=== PATIENT | female | born 1985 | race Caucasian/White ===

== ENCOUNTER 2017-07-06 21:36 | Emergency (ER) | payer OTHER, SELFPAY ==
[2017-07-06 21:49] VITALS: BP 113/68; PULSE 98; RESP 16; TEMP 37; O2SAT 98; BMI 39.8
[2017-07-06 22:39] LABS: Strep Scrn Group A (Rapid) Positive (Negative)
--- NOTE | 2017-07-06 23:46 | HMH.EDGENADL ---
ED Disposition Clinical Impression: Strep pharyngitis Disposition: Home, Self-Care Condition on Discharge: Good Instructions: DI for Strep Throat Additional Instructions: Additional instructions for SORE THROAT: See your physician as soon as possible for further evaluation. Return immediately if you have an uncontrollable fever greater than 102 degrees, difficulty breathing or shortness of breath, persistent vomiting, or inability to swallow. Prescriptions: Azithromycin [Zithromax 250mg tab] 250 mg PO DAILY #4 tab - Critical Care Critical Care Time: No Attestation: On 07/06/17, the high probability of a clinically significant, sudden or life threatening deterioration of the following system(s) required my full and direct attention, intervention and personal management. The time I documented below is in addition to time spent performing reported procedures but includes the following listed in this critical care notation. Medical Decision Making Vital Signs: 07/06/17 21:49 07/07/17 00:13 Temperature 98.6 F Temperature Source Oral Pulse Rate 87 Pulse Rate [Right Brachial] 98 H Respiratory Rate 16 18 Blood Pressure 108/57 Blood Pressure [Right Arm] 113/68 Blood Pressure Mean [Right Arm] 83 Blood Pressure Source Automatic Cuff Blood Pressure Source [Right Arm] Automatic Cuff Blood Pressure Position Sitting Blood Pressure Position [Right Arm] Sitting 02 Sat by Pulse Oximetry 98 Oxygen Delivery Method Room Air Room Air - Lab Data Lab Results 07/06/17 22:15: Group A Strep Rapid Positive A Orders (Tests/Meds): ED MEDICATIONS Discontinued Medications Generic Name Dose Route Start Last Admin Trade Name Fahadq PRN Reason Stop Dose Admin Azithromycin 500 mg 07/06/17 23:46 07/07/17 00:11 Zithromax 250mg Tablet PO 07/06/17 23:47 500 mg ONCE ONE Administration - Marck Inquiry Pt receiving controlled substance: No General Adult HPI - General Chief complaint: Nausea/Vomiting/Diarrhea Stated complaint: Sore Throat, Stomach Cramps Mode of Arrival: Ambulatory Limitations: No Limitations Description of Symptoms (Recalled from ER Triage Doc. by RN): sore throat, diarrhea, abdominal cramps - History of Present Illness HPI narrative: The patient has been sick for 3 days with sore throat, abdominal cramps, diarrhea. No vomiting. Minimal cough. 2 of the patient's children have strep throat. - Related Data Home Medications Medication Instructions Recorded Confirmed Norgestimate-Ethinyl Estradiol 1 each PO DAILY 07/06/17 07/06/17 [Sprintec 28 Day Tablet] Previous Rx's Medication Instructions Recorded Azithromycin [Zithromax 250mg 250 mg PO DAILY #4 tab 07/06/17 tab] Allergies Allergy/AdvReac Type Severity Reaction Status Date / Time codeine [CODEINE] Allergy Mild ITCHY RASH Verified 07/06/17 22:05 honey [HONEY] Allergy Mild NA-NAUSEA/V Verified 07/06/17 22:05 OMITING Penicillins [PENICILLINS] Allergy Mild Verified 07/06/17 22:05 HONEY BEE Allergy Mild NA-NAUSEA/V Uncoded 06/19/17 14:47 OMITING [facility] History I have reviewed the patient's past medical history: Yes 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: Denies:: Cancer, Diabetes Mellitus Type 1, Diabetes Mellitus Type 2, MRSA Amputation: No - *Social History Educational Level: Attended High School Smoking Status: Current every day smoker Tobacco Type: cigarettes # Packs/Day (cigarettes): 1 Alcohol Intake: never - Psychiatric History Expresses thoughts of harming self/others: None Suicide Plan Description: No Plan ROS Obtained: Yes Appropriate systems reviewed & no add complaints except as noted - Constitutional Denies fever(s) - ENT Reports sore throat - Respiratory Reports cough (slight) - Gastrointestinal Comments: stomach cramps, diarrhea Physical Exam - General General appearance: alert, in no apparent distress - Head Head exam: atraumatic, normocephal
--- NOTE | 2017-07-06 23:49 | ED_ITS ---
ED Disposition Clinical Impression: Strep pharyngitis Disposition: Home, Self-Care Condition on Discharge: Good Instructions: DI for Strep Throat Additional Instructions: Additional instructions for SORE THROAT: See your physician as soon as possible for further evaluation. Return immediately if you have an uncontrollable fever greater than 102 degrees, difficulty breathing or shortness of breath, persistent vomiting, or inability to swallow. Prescriptions: Azithromycin [Zithromax 250mg tab] 250 mg PO DAILY #4 tab - Critical Care Critical Care Time: No Attestation: On 07/06/17, the high probability of a clinically significant, sudden or life threatening deterioration of the following system(s) required my full and direct attention, intervention and personal management. The time I documented below is in addition to time spent performing reported procedures but includes the following listed in this critical care notation. Medical Decision Making Vital Signs: 07/06/17 21:49 07/07/17 00:13 Temperature 98.6 F Temperature Source Oral Pulse Rate 87 Pulse Rate [Right Brachial] 98 H Respiratory Rate 16 18 Blood Pressure 108/57 Blood Pressure [Right Arm] 113/68 Blood Pressure Mean [Right Arm] 83 Blood Pressure Source Automatic Cuff Blood Pressure Source [Right Arm] Automatic Cuff Blood Pressure Position Sitting Blood Pressure Position [Right Arm] Sitting 02 Sat by Pulse Oximetry 98 Oxygen Delivery Method Room Air Room Air - Lab Data Lab Results 07/06/17 22:15: Group A Strep Rapid Positive A Orders (Tests/Meds): ED MEDICATIONS Discontinued Medications Generic Name Dose Route Start Last Admin Trade Name Fahadq PRN Reason Stop Dose Admin Azithromycin 500 mg 07/06/17 23:46 07/07/17 00:11 Zithromax 250mg Tablet PO 07/06/17 23:47 500 mg ONCE ONE Administration - Marck Inquiry Pt receiving controlled substance: No General Adult HPI - General Chief complaint: Nausea/Vomiting/Diarrhea Stated complaint: Sore Throat, Stomach Cramps Mode of Arrival: Ambulatory Limitations: No Limitations Description of Symptoms (Recalled from ER Triage Doc. by RN): sore throat, diarrhea, abdominal cramps - History of Present Illness HPI narrative: The patient has been sick for 3 days with sore throat, abdominal cramps, diarrhea. No vomiting. Minimal cough. 2 of the patient's children have strep throat. - Related Data Home Medications Medication Instructions Recorded Confirmed Norgestimate-Ethinyl Estradiol 1 each PO DAILY 07/06/17 07/06/17 [Sprintec 28 Day Tablet] Previous Rx's Medication Instructions Recorded Azithromycin [Zithromax 250mg 250 mg PO DAILY #4 tab 07/06/17 tab] Allergies Allergy/AdvReac Type Severity Reaction Status Date / Time codeine [CODEINE] Allergy Mild ITCHY RASH Verified 07/06/17 22:05 honey [HONEY] Allergy Mild NA-NAUSEA/V Verified 07/06/17 22:05 OMITING Penicillins [PENICILLINS] Allergy Mild Verified 07/06/17 22:05 HONEY BEE Allergy Mild NA-NAUSEA/V Uncoded 06/19/17 14:47 OMITING [facility] History I have reviewed the patient's past medical history: Yes M
[2017-07-07 00:13] VITALS: BP 108/57; PULSE 87; RESP 18; O2SAT 98
== END 2017-07-07 00:15 | disposition home or self-care (01) ==
PROVIDERS: Emergency Provider Emergency Medicine; Family Provider Internal Medicine
DX: J02.0 Streptococcal pharyngitis (principal); F17.210 Nicotine dependence, cigarettes, uncomplicated; Z79.3 Long term (current) use of hormonal contraceptives
CPT/HCPCS: 87430; 99282

== ENCOUNTER 2017-09-14 14:14 | Emergency (ER) | payer OTHER, SELFPAY ==
[2017-09-14 14:56] VITALS: BP 117/73; PULSE 75; RESP 20; TEMP 37; O2SAT 95; BMI 39.8
--- NOTE | 2017-09-14 16:17 | HMH.EDUTC ---
[facility] [place] Disposition Clinical Impression: Viral upper respiratory illness Disposition: Home, Self-Care Condition on Discharge: Good Instructions: DI for Viral Upper Respiratory Infection -- Adult Additional Instructions: * No sign of bacterial infection. Likely viral. Virus can take 7-14 days to run their course * Nasal Saline to remove nasal drainage and help with nasal congestion. Hard to eat, drink, sleep with nasal congestion so important to keep nose cleaned out * Monitor Temp. Tylenol every 4 hours as needed no more then 5 times a day or 4000mg in 24 hours and/or ibuprofen every 6 hours as needed no more then 3200mg in 24 hours (as long as your primary care doctor has told you that it is ok to take both) for fever/aches/pain. ER if fever no less than 101 despite tylenol and ibuprofen * Encourage fluids, water, gatorade, powerade, pedialyte if /toddler/child * warm salt water gargles * warm fluids * sore throat lozenges * sleep elevated * humidifier/vaporizer * If you want to, you can try flonase 2 sprays each nostril daily but may take 2-3 days to notice improvement with it. * Bromfed may cause drowsiness. Know how it effects you (or your child) before driving, caring for small children, or sending your child to school. No other antihistamines/allergy medications while taking bromfed. Follow up with primary care IMMEDIATELY for new or worsening symptoms OR no noticeable improvement over the next 48-72 hours. 911 for difficulty breathing or swallowing. Prescriptions: Brompheniramine/Pseudoephed/Dm [Bromfed DM Cough Syrup 5mL] 10 ml PO QID PRN #240 ml PRN Reason: Cough Time of Disposition: 16:19 Medical Decision Making - Marck Inquiry Pt receiving controlled substance: No Vital Signs: 09/14/17 14:56 09/14/17 16:28 Temperature 98.6 F 98.5 F Temperature Source Temporal Artery Scan Pulse Rate 73 Pulse Rate [Left Radial] 75 Respiratory Rate 20 18 Blood Pressure 115/78 Blood Pressure [Right Arm] 117/73 Blood Pressure Mean [Right Arm] 87 02 Sat by Pulse Oximetry 95 Oxygen Delivery Method Room Air Room Air [facility] [place] HPI - General Stated complaint: cough congestion Time Seen by Provider: 09/14/17 15:30 Mode of Arrival: Family Vehicle Source of Information: Patient, Parent(s) Limitations: No Limitations Description of Symptoms (Recalled from Triage Doc. by RN): PT C/O COUGH, CONGESTION, SNEEZING, RUNNY NOSE. HEENT Symptoms (Recalled from RN notes): Yes (SNEEZING, RUNNY NOSE) Resp Symptoms (Recalled from RN notes): Yes (COUGH,CONGESTION) Skin Symptoms (Recalled from RN notes): No MS Symptoms (Recalled from RN notes): No Functional Status (Recalled from RN notes): NA - History of Present Illness Provider Complaint: c/o nonprod cough, nasal congestion, sneezing, rhinorrhea x 2-3 days. Two children with same symptoms. Fatigue as well but contributes that to my nerves , high stress an staying awake w/ who is in ICU at on ventilator due to DKA. That is why I am here. To be checked before I return. No fever, aches, chills, sore throat. Hasn't taken or tried anything for symptoms. - Related Data Home Medications Medication Instructions Recorded Confirmed Norgestimate-Ethinyl Estradiol 1 each PO DAILY 07/06/17 09/14/17 [Sprintec 28 Day Tablet] Previous Rx's Medication Instructions Recorded Azithromycin [Zithromax 250mg 250 mg PO DAILY #4 tab 07/06/17 tab] Brompheniramine/Pseudoephed/Dm 10 ml PO QID PRN #240 ml 09/14/17 [Bromfed DM Cough Syrup 5mL] Allergies Allergy/AdvReac Type Severity Reaction Status Date / Time codeine [CODEINE] Allergy Mild ITCHY RASH Verified 09/14/17 15:05 honey [HONEY] Allergy Mild NA-NAUSEA/V Verified 09/14/17 15:05 OMITING Penicillins [PENICILLINS] Allergy Mild Verified 09/14/17 15:05 HONEY BEE Allergy Mild NA-NAUSEA/V Uncoded 06/19/17 14:47 OMITING - Worker's Comp Is this a Worker's Comp case?: No H History I h
--- NOTE | 2017-09-14 16:20 | ED_ITS ---
[facility] Disposition Clinical Impression: Viral upper respiratory illness Disposition: Home, Self-Care Condition on Discharge: Good Instructions: DI for Viral Upper Respiratory Infection -- Adult Additional Instructions: * No sign of bacterial infection. Likely viral. Virus can take 7-14 days to run their course * Nasal Saline to remove nasal drainage and help with nasal congestion. Hard to eat, drink, sleep with nasal congestion so important to keep nose cleaned out * Monitor Temp. Tylenol every 4 hours as needed no more then 5 times a day or 4000mg in 24 hours and/or ibuprofen every 6 hours as needed no more then 3200mg in 24 hours (as long as your primary care doctor has told you that it is ok to take both) for fever/aches/pain. ER if fever no less than 101 despite tylenol and ibuprofen * Encourage fluids, water, gatorade, powerade, pedialyte if infant/toddler/ child * warm salt water gargles * warm fluids * sore throat lozenges * sleep elevated * humidifier/vaporizer * If you want to, you can try flonase 2 sprays each nostril daily but may take 2 -3 days to notice improvement with it. * Bromfed may cause drowsiness. Know how it effects you (or your child) before driving, caring for small children, or sending your child to school. No other antihistamines/allergy medications while taking bromfed. Follow up with primary care IMMEDIATELY for new or worsening symptoms OR no noticeable improvement over the next 48-72 hours. 911 for difficulty breathing or swallowing. Prescriptions: Brompheniramine/Pseudoephed/Dm [Bromfed DM Cough Syrup 5mL] 10 ml PO QID PRN # 240 ml PRN Reason: Cough Time of Disposition: 16:19 Medical Decision Making - Marck Inquiry Pt receiving controlled substance: No Vital Signs: 09/14/17 14:56 09/14/17 16:28 Temperature 98.6 F 98.5 F Temperature Source Temporal Artery Scan Pulse Rate 73 Pulse Rate [Left Radial] 75 Respiratory Rate 20 18 Blood Pressure 115/78 Blood Pressure [Right Arm] 117/73 Blood Pressure Mean [Right Arm] 87 02 Sat by Pulse Oximetry 95 Oxygen Delivery Method Room Air Room Air [facility] HPI - General Stated complaint: cough congestion Time Seen by Provider: 09/14/17 15:30 Mode of Arrival: Family Vehicle Source of Information: Patient, Parent(s) Limitations: No Limitations Description of Symptoms (Recalled from Triage Doc. by RN): PT C/O COUGH, CONGESTION, SNEEZING, RUNNY NOSE. HEENT Symptoms (Recalled from RN notes): Yes (SNEEZING, RUNNY NOSE) Resp Symptoms (Recalled from RN notes): Yes (COUGH,CONGESTION) Skin Symptoms (Recalled from RN notes): No MS Symptoms (Recalled from RN notes): No Functional Status (Recalled from RN notes): NA - History of Present Illness Provider Complaint: c/o nonprod cough, nasal congestion, sneezing, rhinorrhea x 2-3 days. Two children with same symptoms. Fatigue as well but contributes that to my nerves , high stress an staying awake w/ who is in ICU at on ventilator due to DKA. That is why I am here. To be checked before I return. No fever, aches, chills, sore throat. Hasn't taken or tried anything for symptoms. - Related Data Home Medications Medication Instructions Recorded Confirmed Norgestimate-Ethinyl Estradiol 1 each PO DAILY 07/06/17 09/14/17 [Sprintec 28 Day Tablet] Previous Rx's Medication Instructions Recorded Azithromycin [Zithromax 250mg 250 mg PO DAILY #4 tab 07/06/17 tab]
[2017-09-14 16:28] VITALS: BP 115/78; PULSE 73; RESP 18; TEMP 36.9; O2SAT 96
== END 2017-09-14 16:29 | disposition home or self-care (01) ==
PROVIDERS: Emergency Provider Nurse Practitioner Family; Family Provider Internal Medicine
DX: J06.9 Acute upper respiratory infection, unspecified (principal); F17.210 Nicotine dependence, cigarettes, uncomplicated; Z88.0 Allergy status to penicillin; Z88.6 Allergy status to analgesic agent
CPT/HCPCS: 99201

== ENCOUNTER 2018-11-28 12:52 | Emergency (ER) | payer MEDICAID, SELFPAY ==
[2018-11-28 13:10] VITALS: BP 114/71; PULSE 98; RESP 18; TEMP 36.6; O2SAT 99; BMI 41.0
--- NOTE | 2018-11-28 13:33 | HMH.EDUTC ---
[facility] [place] Disposition Clinical Impression: Strep pharyngitis Disposition: Home, Self-Care Condition on Discharge: Good Instructions: Strep Throat, DI for Strep Throat Additional Instructions: Drink plenty of fluids. Take tylenol or ibuprofen for pain or fever Take all the antibiotics as prescribed. Throw your tooth brush away and get a new one in a couple of days. Follow up with your regular doctor. GO TO THE ER FOR ANY WORSENING OR LIFE THREATENING SYMPTOMS Prescriptions: Ondansetron [Zofran 4mg ODT] 4 mg PO Q8HP PRN #30 tab.rapdis PRN Reason: Nausea predniSONE [Deltasone 10mg tablet] 10 mg PO BID 3 Days #6 tab Cefdinir [Omnicef 300mg Capsule] 300 mg PO BID #20 cap Referrals: Jackie Michaud MD [Primary Care Provider] - Time of Disposition: 13:35 Medical Decision Making - Medical Records Medical records reviewed: Yes: I reviewed the patient's medical records. - Marck Inquiry Pt receiving controlled substance: No Marck was queried for this patient: No Vital Signs: 11/28/18 13:10 11/28/18 13:38 Temperature 97.8 F 97.8 F Temperature Source Oral Pulse Rate 98 H Pulse Rate [Right Radial] 98 H Respiratory Rate 18 18 Blood Pressure 114/71 Blood Pressure [Right Arm] 114/71 Blood Pressure Mean [Right Arm] 85 Blood Pressure Source [Right Arm] Automatic Cuff Blood Pressure Position [Right Arm] Sitting 02 Sat by Pulse Oximetry 99 Oxygen Delivery Method Room Air [facility] [place] HPI - General Stated complaint: fever, sore throat and vomiting Time Seen by Provider: 11/28/18 13:20 Mode of Arrival: Ambulatory Source of Information: Parent(s) Limitations: No Limitations Description of Symptoms (Recalled from Triage Doc. by RN): C/O FEVER, N/V, SORE THROAT HEENT Symptoms (Recalled from RN notes): Yes (SORE THROAT) Resp Symptoms (Recalled from RN notes): No Skin Symptoms (Recalled from RN notes): No MS Symptoms (Recalled from RN notes): No Functional Status (Recalled from RN notes): N/A - History of Present Illness Provider Complaint: She c/o sore throat, chilling, low grade fever for the past 2 days. - Related Data Previous Rx's Medication Instructions Recorded clindamycin HCl 300 mg capsule 300 mg PO Q8H 10 Days #30 cap 10/15/18 Cefdinir [Omnicef 300mg Capsule] 300 mg PO BID #20 cap 11/28/18 Ondansetron [Zofran 4mg ODT] 4 mg PO Q8HP PRN #30 tab.rapdis 11/28/18 predniSONE [Deltasone 10mg tablet] 10 mg PO BID 3 Days #6 tab 11/28/18 Allergies Allergy/AdvReac Type Severity Reaction Status Date / Time codeine [CODEINE] Allergy Mild ITCHY RASH Verified 10/15/18 16:51 honey [HONEY] Allergy Mild NA-NAUSEA/V Verified 10/15/18 16:51 OMITING Penicillins [PENICILLINS] Allergy Mild Verified 10/15/18 16:51 HONEY BEE Allergy Mild NA-NAUSEA/V Uncoded 10/15/18 16:51 OMITING - Worker's Comp Is this a Worker's Comp case?: No [facility] History - Hepatitis A Screen Drug use history?: No High risk sexual behaviors?: No History of sexually transmitted infection?: No Currently employed?: No Childcare worker?: No Do you have indoor plumbing?: Yes Do you have electricity?: Yes Attestation statement:: This patient has been screened for Hepatitis A risk factors. I have reviewed the patient's past medical history: Yes 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: Denies:: Cancer, Diabetes Mellitus Type 1, Diabetes Mellitus Type 2, Hypertension, MRSA Other Surgeries: Yes: No Previous Surgery Amputation: No Fractures: No - Social History Smoking Status: Never smoker Tobacco Type: cigarettes # Packs/Day (cigarettes): 1 Alcohol Intake: never Substance Use Type: denies use Occupational Status: unemployed Housing: house Household Members: children, significant other, family - Psychiatric History Expresses thoughts of harming self/others: None Suicide Plan Description: No Plan Family Hx:: Anemia, Asthma, Hypertension, Hyperlipidemia ROS Obtained: Yes All systems reviewed & no additional compla
[2018-11-28 13:38] VITALS: BP 114/71; PULSE 98; RESP 18; TEMP 36.6; O2SAT 99
== END 2018-11-28 13:39 | disposition home or self-care (01) ==
PROVIDERS: Emergency Provider Nurse Practitioner Family; PCP Family Medicine
DX: J02.0 Streptococcal pharyngitis (principal); Z88.0 Allergy status to penicillin; Z88.5 Allergy status to narcotic agent
CPT/HCPCS: 99201

== ENCOUNTER 2020-07-13 18:24 | Emergency (ER) | payer OTHER, SELFPAY ==
[2020-07-13 18:24] VITALS: BP 144/98; PULSE 95; RESP 14; TEMP 36.4; O2SAT 95; BMI 39.0
--- NOTE | 2020-07-13 19:48 | HMH.EDUTC ---
[facility] [place] Impression: Exposure to COVID-19 virus Disposition: Home, Self-Care Condition on Discharge: Good Instructions: Preventing the Spread of Coronavirus Discharge Instructions Additional Instructions: Drink plenty of fluids. Take tylenol for pain or fever. Return if you begin to have difficulty breathing. Follow up with your regular doctor. GO TO THE ER FOR ANY WORSENING SYMPTOMS Referrals: Mina Thompson MD [Primary Care Provider] - Time of Disposition: 19:49 Medical Decision Making - Medical Records Medical records reviewed: No: I reviewed the patient's medical records. - Marck Inquiry Pt receiving controlled substance: No Vital Signs: 07/13/20 18:24 07/13/20 20:02 Temperature 97.6 F 97.6 F Temperature Source Oral Oral Pulse Rate 95 H Pulse Rate [Right] 95 H Respiratory Rate 14 14 Blood Pressure 144/98 H Blood Pressure [Right Arm] 144/98 H Blood Pressure Mean [Right Arm] 113 02 Sat by Pulse Oximetry 95 Orders (Tests/Meds): ORDERS Category Date Time Status Covid-19 Nasal PCR Sendout P&C Routine Lab 07/13/20 19:30 [place] [facility] [place] - General Stated complaint: covid test Time Seen by Provider: 07/13/20 19:48 Description of Symptoms (Recalled from Triage Doc. by RN): pt request COVID test pt has no symptoms HEENT Symptoms (Recalled from RN notes): No Resp Symptoms (Recalled from RN notes): No Skin Symptoms (Recalled from RN notes): No MS Symptoms (Recalled from RN notes): No Functional Status (Recalled from RN notes): wnl - History of Present Illness Provider Complaint: She states that she has been exposed to covid. She denies any symptoms. - Related Data Previous Rx's Medication Instructions Recorded Promethazine HCl [Phenergan 25mg 25 mg PO Q6H PRN 5 Days #10 tab 08/22/19 tab] Allergies Allergy/AdvReac Type Severity Reaction Status Date / Time codeine [CODEINE] Allergy Mild ITCHY RASH Verified 03/02/19 12:17 honey [HONEY] Allergy Mild NA-NAUSEA/V Verified 03/02/19 12:17 OMITING Penicillins [PENICILLINS] Allergy Mild Verified 03/02/19 12:17 HONEY BEE Allergy Mild NA-NAUSEA/V Uncoded 03/02/19 12:17 OMITING - Worker's Comp Is this a Worker's Comp case?: No Is this an [facility] Worker's Comp?: No Is this a [place] Worker's Comp?: No [facility] History - Hepatitis A Screen Drug use history?: No High risk sexual behaviors?: No History of sexually transmitted infection?: No Currently employed?: No Childcare worker?: No Do you have indoor plumbing?: Yes Do you have electricity?: Yes Attestation statement:: This patient has been screened for Hepatitis A risk factors. I have reviewed the patient's past medical history: Yes 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: Denies:: Cancer, Diabetes Mellitus Type 1, Diabetes Mellitus Type 2, Hypertension, MRSA Other Surgeries: Yes: No Previous Surgery Amputation: No Fractures: No - Social History Smoking Status: Current every day smoker Tobacco Type: cigarettes # Packs/Day (cigarettes): 1 Alcohol Intake: never Substance Use Type: denies use Occupational Status: other Housing: house Household Members: significant other, family Family Hx:: Anemia, Asthma, Hypertension, Hyperlipidemia ROS Obtained: Yes All systems reviewed & no additional complaints - Constitutional Constitutional: Reports system reviewed and no additional complaints, except as docu - Eyes Eyes: Reports system reviewed and no additional complaints, except as docu - ENT Ears, Nose, Mouth, and Throat: Reports system reviewed and no additional complaints, except as docu - Cardiovascular Cardiovascular: Reports system reviewed and no additional complaints, except as docu - Respiratory Respiratory: Reports system reviewed and no additional complaints, except as docu - Gastrointestinal Gastrointestingal: Reports: system reviewed and no additional complaints, except as docu Physical Exam - General General appearan
[2020-07-13 20:02] VITALS: BP 144/98; PULSE 95; RESP 14; TEMP 36.4; O2SAT 95
[2020-07-15 11:40] LABS: Covid-19 Nasal PCR Sendout P&C NEGATIVE
== END 2020-07-13 20:03 | disposition home or self-care (01) ==
PROVIDERS: Emergency Provider Nurse Practitioner Family; PCP Internal Medicine Adolescent Medicine
DX: Z20.822 Contact with and (suspected) exposure to COVID-19 (principal); F17.210 Nicotine dependence, cigarettes, uncomplicated; Z88.0 Allergy status to penicillin; Z88.5 Allergy status to narcotic agent
CPT/HCPCS: 99202; G0463; U0004

== ENCOUNTER 2020-07-17 15:15 | Emergency (ER) | payer OTHER, SELFPAY ==
[2020-07-17 15:50] VITALS: BP 122/68; PULSE 92; RESP 14; TEMP 36.3; O2SAT 97; BMI 39.0
--- NOTE | 2020-07-17 16:05 | HMH.EDUTC ---
[facility] Disposition Clinical Impression: Viral syndrome, Bronchitis Disposition: Home, Self-Care Condition on Discharge: Good Instructions: DI for COVID-19 (Suspected or Confirmed ), Preventing the Spread of Coronavirus Discharge Instructions Additional Instructions: Drink plenty of fluids. Take tylenol for pain or fever. Return if you begin to have difficulty breathing. Follow up with your regular doctor. GO TO THE ER FOR ANY WORSENING SYMPTOMS Prescriptions: Benzonatate [Tessalon Perle 100mg Cap] 100 mg PO TIDP PRN #30 cap PRN Reason: Cough [facility] Status[id number] Azithromycin [Z-Kodi 250mg Tab*] 250 mg PO UD DOSE PK #6 tab Transmission Status: Received by [id number] Referrals: Mina Thompson MD [Primary Care Provider] - Time of Disposition: 16:07 Medical Decision Making - Medical Records Medical records reviewed: No: I reviewed the patient's medical records. - Marck Inquiry Pt receiving controlled substance: No Vital Signs: 07/17/20 15:50 07/17/20 16:28 Temperature 97.3 F L 97.3 F L Temperature Source Oral Pulse Rate 92 H Pulse Rate [Right Brachial] 92 H Respiratory Rate 14 14 Blood Pressure 122/68 Blood Pressure [Right Arm] 122/68 Blood Pressure Mean [Right Arm] 86 Blood Pressure Source [Right Arm] Automatic Cuff Blood Pressure Position [Right Arm] Sitting 02 Sat by Pulse Oximetry 97 Oxygen Delivery Method Room Air [facility] HPI - General Stated complaint: test for covid Time Seen by Provider: 07/17/20 16:05 Mode of Arrival: Ambulatory Source of Information: Patient Limitations: No Limitations Description of Symptoms (Recalled from Triage Doc. by RN): COVID TEST. C/O HEADACHE, COUGH AND CONGESTION HEENT Symptoms (Recalled from RN notes): Yes Resp Symptoms (Recalled from RN notes): Yes Skin Symptoms (Recalled from RN notes): No MS Symptoms (Recalled from RN notes): No Functional Status (Recalled from RN notes): WNL - History of Present Illness Provider Complaint: She is here to have a covid test repeated so she can go back to work. She has been having sinus congestion and a cough. She had a negative covid test done 3 days ago. - Related Data Previous Rx's Medication Instructions Recorded Promethazine HCl [Phenergan 25mg 25 mg PO Q6H PRN 5 Days #10 tab 08/22/19 tab] Azithromycin [Z-Kodi 250mg Tab*] 250 mg PO UD DOSE PK #6 tab 07/17/20 Benzonatate [Tessalon Perle 100mg 100 mg PO TIDP PRN #30 cap 07/17/20 Cap] Allergies Allergy/AdvReac Type Severity Reaction Status Date / Time codeine [CODEINE] Allergy Mild ITCHY RASH Verified 03/02/19 12:17 honey [HONEY] Allergy Mild NA-NAUSEA/V Verified 03/02/19 12:17 OMITING Penicillins [PENICILLINS] Allergy Mild Verified 03/02/19 12:17 HONEY BEE Allergy Mild NA-NAUSEA/V Uncoded 03/02/19 12:17 OMITING - Worker's Comp Is this a Worker's Comp case?: No [facility] History - Hepatitis A Screen Drug use history?: No High risk sexual behaviors?: No History of sexually transmitted infection?: No Currently employed?: No Childcare worker?: No Do you have indoor plumbing?: Yes Do you have electricity?: Yes Attestation statement:: This patient has been screened for Hepatitis A risk factors. I have reviewed the patient's past medical history: Yes 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: Denies:: Cancer, Diabetes Mellitus Type 1, Diabetes Mellitus Type 2, Hypertension, MRSA Other Surgeries: Yes: No Previous Surgery Amputation: No Fractures: No - Social History Smoking Status: Current every day smoker Tobacco Type: cigarettes # Packs/Day (cigarettes): 1 Alcohol Intake: never Substance Use Type: denies use Occupational Status: other Housing: house Household Members: significant other, family Family Hx:: Anemia, Asthma, Hypertension, Hyperlipidemia ROS Obtained: Yes All systems reviewed & no additional complaints - Constitutional Constitutional: Reports system reviewed and no ad
[2020-07-17 16:28] VITALS: BP 122/68; PULSE 92; RESP 14; TEMP 36.3; O2SAT 97
== END 2020-07-17 16:31 | disposition home or self-care (01) ==
PROVIDERS: Emergency Provider Nurse Practitioner Family; PCP Internal Medicine Adolescent Medicine
DX: Z20.822 Contact with and (suspected) exposure to COVID-19 (principal); J20.9 Acute bronchitis, unspecified; F17.210 Nicotine dependence, cigarettes, uncomplicated
CPT/HCPCS: 99202; G0463; U0003

== ENCOUNTER 2021-02-03 21:46 | Emergency (ER) | payer OTHER, SELFPAY ==
[2021-02-03 21:48] VITALS: BP 113/85; PULSE 90; RESP 17; TEMP 36.9; O2SAT 100; BMI 39.0
[2021-02-03 23:01] VITALS: BP 104/59
--- NOTE | 2021-02-03 23:19 | XR_ITS ---
PROCEDURE INFORMATION: Exam: XR Right Wrist Exam date and time: 02/03/2021 11:19 PM Age: 35 years old Clinical indication: Wrist; Right; Patient HX: HX of FX 2 years ago, pain with no unjury; Additional info: Wrist pain, prev. Fracture TECHNIQUE: Imaging protocol: XR Right wrist. Views: 3 or more views. COMPARISON: CR WRISTCMRT XR wrist RT min 3V 10/09/2017 6:16 PM FINDINGS: Bones/joints: Normal. Soft tissues: Normal. IMPRESSION: No acute findings.
--- NOTE | 2021-02-03 23:47 | HMH.EDGENADL ---
ED Disposition Clinical Impression: Tendinitis of right wrist Disposition: Home, Self-Care Condition on Discharge: Good Instructions: DI for Tendinitis Additional Instructions: Wear wrist brace until seen by Dr. Beltran. Ice 20 minutes 4-5 times a day, elevate extremity when possible. Continue taking ibuprofen or Aleve for pain. Referrals: Stalin Nunes MD [Primary Care Provider] - - Critical Care Critical Care Time: No Attestation: On 02/03/21, the high probability of a clinically significant, sudden or life threatening deterioration of the following system(s) required my full and direct attention, intervention and personal management. The time I documented below is in addition to time spent performing reported procedures but includes the following listed in this critical care notation. Medical Decision Making - Medical Records Medical records reviewed: Yes: I reviewed the patient's medical records. MR Comment: Reviewed [facility] visit and orthopedic visit to Dr. Cox September 2017 for wrist injury that she has described. X-rays were negative. Got Dr. Cox diagnosed her with tendinitis. - Marck Inquiry Pt receiving controlled substance: No Vital Signs: 02/03/21 21:48 02/03/21 23:01 Temperature 98.5 F Temperature Source Oral Pulse Rate [Right] 90 Respiratory Rate 17 Blood Pressure 104/59 L Blood Pressure [Left Arm] 113/85 Blood Pressure Mean 74 Blood Pressure Mean [Left Arm] 94 Blood Pressure Source [Left Arm] Automatic Cuff 02 Sat by Pulse Oximetry 100 Oxygen Delivery Method Room Air Orders (Tests/Meds): ORDERS Category Date Time Status XR wrist RT min 3V Stat Exams 02/03/21 23:19 Taken General Adult HPI - General Chief complaint: Extremity Problem,Nontraumatic Stated complaint: Pain R arm Time Seen by Provider: 02/03/21 23:47 Mode of Arrival: Family Vehicle Limitations: No Limitations Description of Symptoms (Recalled from ER Triage Doc. by RN): Pt c/o R wrist pain with numbness and tingling. Pt states she broke this wrist several years ago and was casted, no surgery required. 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 However, she the last few days it has worsened and the Aleve, Athritis medicaiton are not helping, as well as the new paresthesia. Pt can move her wrist and fingers, although hurts to do so. 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 - History of Present Illness HPI narrative: States that for several days she has had pain in her wrist on both the radial and ulnar aspects. Some tingling of her fingers especially the middle finger and thumb. She has a job where she uses her hands a lot which aggravates her condition. She has tried [id number]-thm-[id number] medications, NSAIDs without relief. She is using ice. She says she has a prior history of a fracture of that wrist couple years ago, seen at the urgent treatment center here and followed up with Dr. Cox. She says that she was told she had a cracked bone in the wrist and that arthritis would be her main problem from that injury. She feels like she has arthritis. - Related Data Home Medications Medication Instructions Recorded Confirmed Acetaminophen [Tylenol Arthritis] 650 mg PO DAILY 02/03/21 02/03/21 Naproxen Sodium [Aleve 220mg Tab] 220 mg PO BID 02/03/21 02/03/21 Allergies Allergy/AdvReac Type Severity Reaction Status Date / Time codeine [CODEINE] Allergy Mild ITCHY RASH Verified 03/02/19 12:17 honey [HONEY] Allergy Mild NA-NAUSEA/V Verified 03/02/19 12:17 OMITING Penicillins [PENICILLINS] Allergy Mild Verified 03/02/19 12:17 HONEY BEE Allergy Mild NA-NAUSEA/V Uncoded 03/02/19 12:17 OMITING [facility] History - Hepatitis A Screen Drug use history?: No High risk sexual behaviors?: No History of sexually transmitted infection?: No Currently employ
[2021-02-04 00:01] VITALS: BP 104/58
[2021-02-04 00:11] VITALS: BP 104/58; PULSE 70; RESP 18; TEMP 37; O2SAT 99
== END 2021-02-04 00:13 | disposition home or self-care (01) ==
PROVIDERS: Emergency Provider Emergency Medicine; PCP Emergency Medicine
DX: M65.231 Calcific tendinitis, right forearm (principal); Z88.0 Allergy status to penicillin; Z88.2 Allergy status to sulfonamides; F17.210 Nicotine dependence, cigarettes, uncomplicated
CPT/HCPCS: 29125; 73110; 99283

== ENCOUNTER 2021-02-18 18:13 | Emergency (ER) | payer OTHER, SELFPAY ==
[2021-02-18 18:30] VITALS: BP 110/50; PULSE 118; RESP 16; TEMP 37.1; O2SAT 100; BMI 39.0
--- NOTE | 2021-02-18 19:09 | HMH.EDUTC ---
[facility] [place] Disposition Clinical Impression: Exposure to COVID-19 virus Disposition: Home, Self-Care Condition on Discharge: Good Instructions: DI for COVID-19 (Suspected or Confirmed ), Coronavirus Disease 2019, Preventing the Spread of Coronavirus Discharge Instructions Additional Instructions: *Monitor Temp, Over the counter Motrin or Tylenol as directed/as needed Tylenol every 4 hours and Motrin every 6 hours (as long as your family doctor has told you that you can take it) for fever or pain. and straight to ER if unable to lower temp less than 101.0 after medication given Follow up IMMEDIATELY for new or worsening symptoms or no Noticeable improvement over the next 48-72 hours. 911 for difficulty breathing or swallowing You were tested for today for COVID19 your test result should be back in the next 24-48 hours, you may call to the [facility] to see if your test results are back in the next 48 hours [phone] [facility] hours are 9am-9pm You was given a handout with instructions for Self Quarantine and Self isolation for while you wait on test results and what to do if they are positive If you are positive the Health Dept will be contacting you also Make sure to take your Vitamins Vit. C Vit D and Zinc if you can take them Referrals: Mina Dejesus MD [Primary Care Provider] - As needed Time of Disposition: 19:16 Medical Decision Making - Marck Inquiry Pt receiving controlled substance: No Marck was queried for this patient: No Vital Signs: 02/18/21 18:30 Temperature 98.7 F Temperature Source Oral Pulse Rate [Right Brachial] 118 H Respiratory Rate 16 Blood Pressure [Right Arm] 110/50 L Blood Pressure Mean [Right Arm] 70 Blood Pressure Source [Right Arm] Automatic Cuff Blood Pressure Position [Right Arm] Sitting 02 Sat by Pulse Oximetry 100 Oxygen Delivery Method Room Air Orders (Tests/Meds): ORDERS Category Date Time Status Covid-19 Nasal PCR ([facility]) Routine Lab 02/18/21 19:16 Ordered [facility] HPI - General Stated complaint: covid test.LORENZO sore throat Time Seen by Provider: 02/18/21 19:09 Mode of Arrival: Ambulatory Source of Information: Patient Limitations: No Limitations Description of Symptoms (Recalled from Triage Doc. by RN): COVID TEST D/T EXPOSURE. C/O EYE PRESSURE, HEADACHE HEENT Symptoms (Recalled from RN notes): Yes Resp Symptoms (Recalled from RN notes): No Skin Symptoms (Recalled from RN notes): No MS Symptoms (Recalled from RN notes): No Functional Status (Recalled from RN notes): WNL - History of Present Illness Provider Complaint: Patient state that her tested positive for COVID today States that she has been having nasal congestion, headache and body aches States that she was worried and wanted to get tested - Related Data Home Medications Medication Instructions Recorded Confirmed Acetaminophen [Tylenol Arthritis] 650 mg PO DAILY 02/03/21 02/03/21 Naproxen Sodium [Aleve 220mg Tab] 220 mg PO BID 02/03/21 02/03/21 Allergies Allergy/AdvReac Type Severity Reaction Status Date / Time codeine [CODEINE] Allergy Mild ITCHY RASH Verified 03/02/19 12:17 honey [HONEY] Allergy Mild NA-NAUSEA/V Verified 03/02/19 12:17 OMITING Penicillins [PENICILLINS] Allergy Mild Verified 03/02/19 12:17 HONEY BEE Allergy Mild NA-NAUSEA/V Uncoded 03/02/19 12:17 OMITING - Worker's Comp Is this a Worker's Comp case?: No H History - Hepatitis A Screen Drug use history?: No High risk sexual behaviors?: No History of sexually transmitted infection?: No Currently employed?: No Childcare worker?: No Do you have indoor plumbing?: Yes Do you have electricity?: Yes Attestation statement:: This patient has been screened for Hepatitis A risk factors. I have reviewed the patient's past medical history: Yes 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: Denies:: Cancer, Diabetes Mellitus Type 1, Diabetes Mellitus Type 2, Hypertension, MRSA Other Surgeries: Yes: No Previous Surgery Amputation: No Fractures:
[2021-02-18 19:34] VITALS: BP 110/50; PULSE 118; RESP 16; TEMP 37.1; O2SAT 100
--- NOTE | 2021-02-19 12:03 | PC.NURSE ---
pt notified of positive covid results
== END 2021-02-18 19:41 | disposition home or self-care (01) ==
PROVIDERS: Emergency Provider Nurse Practitioner; PCP Family Medicine
DX: U07.1 COVID-19 (principal); F17.210 Nicotine dependence, cigarettes, uncomplicated; Z88.0 Allergy status to penicillin
CPT/HCPCS: 99202; G0463; U0003

== ENCOUNTER 2021-02-28 12:02 | Emergency (ER) | payer OTHER, SELFPAY ==
[2021-02-28 14:20] VITALS: BP 98/68; PULSE 83; RESP 18; TEMP 36.8; O2SAT 98; BMI 39.0
--- NOTE | 2021-02-28 14:43 | HMH.EDUTC ---
[facility] [place] Clinical Impression: Encounter for laboratory testing for COVID-19 virus Disposition: Home, Self-Care Condition on Discharge: Good Instructions: DI for COVID-19 (Suspected or Confirmed ), Preventing the Spread of Coronavirus Discharge Instructions Additional Instructions: *Monitor Temp, Over the counter Motrin or Tylenol as directed/as needed Tylenol every 4 hours and Motrin every 6 hours (as long as your family doctor has told you that you can take it) for fever or pa-in. and straight to ER if unable to lower temp less than 101.0 after medication given Follow up IMMEDIATELY for new or worsening symptoms or no Noticeable improvement over the next 48-72 hours. 911 for difficulty breathing or swallowing You were tested for today for COVID19 your test result should be back in the next 24-48 hours, Check the [facility] Portal to see if your test results are back in the next 48 it may say detected that means your result is positive.You was given handout instructions on how log on and see your results. If you do not have internet access you may call the [facility] for your results [phone] You was given a handout with instructions for Self Quarantine and Self isolation for while you wait on test results and what to do if they are positive If you are positive the Health Dept will be contacting you also Make sure to take your Vitamins Vit. C Vit D and Zinc if you can take them Referrals: Mina Dejesus MD [Primary Care Provider] - As needed Forms: Work/School Release Medical Decision Making - Marck Inquiry Pt receiving controlled substance: No Marck was queried for this patient: No Vital Signs: 02/28/21 14:20 Temperature 98.2 F Temperature Source Oral Pulse Rate [Right Brachial] 83 Respiratory Rate 18 Blood Pressure [Right Arm] 98/68 L Blood Pressure Mean [Right Arm] 78 Blood Pressure Source [Right Arm] Automatic Cuff Blood Pressure Position [Right Arm] Sitting 02 Sat by Pulse Oximetry 98 Oxygen Delivery Method Room Air Orders (Tests/Meds): ORDERS Category Date Time Status Covid-19 Nasal PCR ([facility]) Routine Lab 02/28/21 14:06 Ordered [facility] HPI - General Stated complaint: covid test Time Seen by Provider: 02/28/21 14:43 Mode of Arrival: Ambulatory Source of Information: Patient Limitations: No Limitations Description of Symptoms (Recalled from Triage Doc. by RN): NEGATIVE TEST TO RETURN TO WORK HEENT Symptoms (Recalled from RN notes): No Resp Symptoms (Recalled from RN notes): No Skin Symptoms (Recalled from RN notes): No MS Symptoms (Recalled from RN notes): No Functional Status (Recalled from RN notes): WNL - History of Present Illness Provider Complaint: Patient state that she recently had COVID State that her work is requiring that she get tested again before returning to work so she is here to get retested for COVID Denies any symptoms now and denies fever - Related Data Home Medications Medication Instructions Recorded Confirmed Acetaminophen [Tylenol Arthritis] 650 mg PO DAILY 02/03/21 02/03/21 Naproxen Sodium [Aleve 220mg Tab] 220 mg PO BID 02/03/21 02/03/21 Allergies Allergy/AdvReac Type Severity Reaction Status Date / Time codeine [CODEINE] Allergy Mild ITCHY RASH Verified 03/02/19 12:17 honey [HONEY] Allergy Mild NA-NAUSEA/V Verified 03/02/19 12:17 OMITING Penicillins [PENICILLINS] Allergy Mild Verified 03/02/19 12:17 HONEY BEE Allergy Mild NA-NAUSEA/V Uncoded 03/02/19 12:17 OMITING - Worker's Comp Is this a Worker's Comp case?: No [facility] History - Hepatitis A Screen Drug use history?: No High risk sexual behaviors?: No History of sexually transmitted infection?: No Currently employed?: No Childcare worker?: No Do you have indoor plumbing?: Yes Do you have electricity?: Yes Attestation statement:: This patient has been screened for Hepatitis A risk factors. I have reviewed the patient's past medical history: Yes 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: Denies
[2021-02-28 14:55] VITALS: BP 98/68; PULSE 83; RESP 18; TEMP 36.8; O2SAT 98
== END 2021-02-28 15:03 | disposition home or self-care (01) ==
PROVIDERS: Emergency Provider Nurse Practitioner; PCP Family Medicine
DX: Z20.822 Contact with and (suspected) exposure to COVID-19 (principal)
CPT/HCPCS: 99202; G0463; U0003

== ENCOUNTER → 2021-03-11 12:53 | Outpatient (CLI) | payer OTHER, SELFPAY | PROVIDERS: Visit Provider Nurse Practitioner Family | DX: Z20.822 Contact with and (suspected) exposure to COVID-19 (principal) | CPT/HCPCS: C9803; U0003; U0005 ==

== ENCOUNTER → 2021-04-13 09:42 | Outpatient (CLI) | payer OTHER, SELFPAY | PROVIDERS: PCP Family Medicine; Visit Provider Nurse Practitioner | DX: Z20.822 Contact with and (suspected) exposure to COVID-19 (principal); U07.1 COVID-19 | CPT/HCPCS: C9803; U0003; U0005 ==

== ENCOUNTER → 2021-05-22 17:02 | Outpatient (CLI) | payer OTHER, SELFPAY | PROVIDERS: PCP Family Medicine; Visit Provider Nurse Practitioner Family | DX: Z20.822 Contact with and (suspected) exposure to COVID-19 (principal) | CPT/HCPCS: C9803; U0003; U0005 ==

== ENCOUNTER 2021-05-23 15:49 | Emergency (ER) | payer OTHER, SELFPAY ==
[2021-05-23 18:24] VITALS: BP 146/93; PULSE 78; RESP 18; TEMP 36.8; O2SAT 99; BMI 41.0
[2021-05-23 18:34] LABS: Adenovirus,PCR Not Detected (NotDetected); Bordetella Pertussis Not Detected (NotDetected); Chlamydophila Pneumoniae, PCR Not Detected (NotDetected); Coronavirus 19, PCR Not Detected (NotDetected); Coronavirus 229E Not Detected (NotDetected); Coronavirus NL63 Not Detected (NotDetected); Coronavirus OC43 Not Detected (NotDetected); Coronovirus HKU1,PCR Not Detected (NotDetected); Human Metapneumovirus Not Detected (NotDetected); Influenza A, PCR Not Detected (NotDetected); Influenza AH1, 2009 Not Detected (NotDetected); Influenza AH1, PCR Not Detected (NotDetected); Influenza AH3,PCR Not Detected (NotDetected); Influenza B, PCR Not Detected (NotDetected); Mycoplasma Pneumoniae, PCR Not Detected (NotDetected); Parainfluenza 1, PCR Not Detected (NotDetected); Parainfluenza 2, PCR Not Detected (NotDetected); Parainfluenza 3, PCR Not Detected (NotDetected); Parainfluenza 4, PCR Not Detected (NotDetected); Respiratory Syncytial Virus Not Detected (NotDetected); Rhinovirus/Enterovirus Not Detected (NotDetected)
[2021-05-23 18:39] LABS: UTC Strep Screen (Rapid) Negative (Negative)
--- NOTE | 2021-05-23 19:04 | HMH.EDUTC ---
[facility] [place] Impression: Viral upper respiratory illness Disposition: Home, Self-Care Condition on Discharge: Good Instructions: DI for Viral Upper Respiratory Infection -- Adult, DI for Cough -- Adult Additional Instructions: *Monitor Temp, Over the counter Motrin or Tylenol as directed/as needed Tylenol every 4 hours and Motrin every 6 hours (as long as your family doctor has told you that you can take it) for fever or pain. and straight to ER if unable to lower temp less than 101.0 after medication given *Warm salt water gargles may help to soothe the throat *Throat Lozenges *Warm fluids like tea with honey may help to soothe the throat *Sleep elevated *Humidifier/Vaporizer *Flonase 2 sprays in each nostril daily but be aware that it may take 2-3 days before you notice improvement *Bromfed may cause drowsiness. Know how it effects you (your child) before driving, caring for small child, or sending your child to school. Not other antihistamines/allergy medications while taking bromfed Your throat swab was sent for culture. Those results are typically sent to your primary care. Be sure to follow up in 2-3 days with your family doctor/primary care physician if no improvement so they can review those result and treat if necessary. If you don?t have a primary care doctor, I recommend you get one but in the mean time, you will have to return to a walk in clinic Follow up IMMEDIATELY for new or worsening symptoms or no Noticeable improvement over the next 48-72 hours. 911 for difficulty breathing or swallowing You were tested for today for COVID19 your test result should be back in the next 24-48 hours, you check your results on the [facility] My Health Portal if you have trouble logging on you may call You was given a handout with instructions for Self Quarantine and Self isolation for while you wait on test results and what to do if they are positive If you are positive the Health Dept will be contacting you also Make sure to take your Vitamins Vit. C Vit D and Zinc if you can take them Prescriptions: Brompheniramine/Pseudoephed/Dm [Bromfed Dm Cough Syrup] 10 ml PO Q46H PRN #250 ml PRN Reason: Cough [facility] Fluticasone Propionate [Flonase 50mcg nasal spray 16gm] 1 spr NS DAILY #1 each Transmission Status: Pending to [id number] Referrals: Mina Dejesus MD [Primary Care Provider] - As needed Forms: Work/School Release Time of Disposition: 19:15 Medical Decision Making - Marck Inquiry Pt receiving controlled substance: No Marck was queried for this patient: No Vital Signs: 05/23/21 18:24 Temperature 989.2 F H Temperature Source Oral Pulse Rate [Left] 78 Respiratory Rate 18 Blood Pressure [Right Arm] 146/93 H Blood Pressure Mean [Right Arm] 110 02 Sat by Pulse Oximetry 99 - Lab Data Lab results reviewed: Yes: I reviewed the patient's lab results. Lab Results 05/23/21 18:24: Strep Scn Rapid Clinic Negative Orders (Tests/Meds): ORDERS Category Date Time Status Full Resp Panel w/COVID ([facility]) Routine Lab 05/23/21 18:20 Received Strep Screen Confirmation Stat Micro 05/23/21 18:24 Received [facility] UTC HPI - General Stated complaint: cough, sneezing, chills, body aches Time Seen by Provider: 05/23/21 19:04 Mode of Arrival: Ambulatory Source of Information: Patient Limitations: No Limitations Description of Symptoms (Recalled from Triage Doc. by RN): pt c/o cough, congestion, body aches and chills x1 wk. HEENT Symptoms (Recalled from RN notes): Yes (congestion) Resp Symptoms (Recalled from RN notes): Yes (cough) Skin Symptoms (Recalled from RN notes): No MS Symptoms (Recalled from RN notes): No Functional Status (Recalled from RN notes): wnl - History of Present Illness Provider Complaint: Patient states that she has been having nasal congestion, cough, runny nose feeling achy and having a headache with chills on and off for about
[2021-05-23 19:27] VITALS: BP 146/93; PULSE 78; RESP 18; TEMP 36.8
== END 2021-05-23 19:48 | disposition home or self-care (01) ==
PROVIDERS: Emergency Provider Nurse Practitioner; PCP Family Medicine
DX: J06.9 Acute upper respiratory infection, unspecified (principal); Z20.822 Contact with and (suspected) exposure to COVID-19; F17.210 Nicotine dependence, cigarettes, uncomplicated
CPT/HCPCS: 87581; 87632; 87798; 87880; 99203; C9803; G0463; U0003; U0005

== ENCOUNTER → 2021-06-01 13:17 | Outpatient (CLI) | payer OTHER, SELFPAY | PROVIDERS: PCP Family Medicine; Visit Provider Nurse Practitioner | DX: Z20.822 Contact with and (suspected) exposure to COVID-19 (principal) | CPT/HCPCS: C9803; U0003; U0005 ==

== ENCOUNTER → 2021-06-03 13:21 | Outpatient (CLI) | payer OTHER, SELFPAY | PROVIDERS: PCP Family Medicine; Visit Provider Nurse Practitioner | DX: Z20.822 Contact with and (suspected) exposure to COVID-19 (principal) | CPT/HCPCS: C9803; U0003; U0005 ==

== ENCOUNTER 2021-07-30 14:41 | Emergency (ER) | payer OTHER, SELFPAY ==
[2021-07-30 15:22] VITALS: BP 128/80; PULSE 98; RESP 14; TEMP 37.3; O2SAT 96; BMI 43.0
--- NOTE | 2021-07-30 16:00 | HMH.EDUTC ---
[facility] [place] Disposition Clinical Impression: Bronchitis, Viral syndrome Disposition: Home, Self-Care Condition on Discharge: Good Instructions: DI for Acute Bronchitis, DI for COVID-19 (Suspected or Confirmed ), Preventing the Spread of Coronavirus Discharge Instructions Additional Instructions: Drink plenty of fluids. Take tylenol or ibuprofen for pain or fever. Take the medications as directed. Follow up with your regular doctor. GO TO THE ER FOR ANY WORSENING SYMPTOMS Quarantine until you know the results of your covid-19 test. Notify your school or workplace of your results and follow their instructions regarding return to work/school. Prescriptions: Benzonatate [Benzonatate 100mg cap] 100 mg PO TIDP PRN #30 cap PRN Reason: Cough Transmission Status: Received by [id number] guaiFENesin [Mucinex 600mg tablet] 1 - 2 tab PO BIDP PRN #30 tab PRN Reason: Congestion Transmission Status: Received by [id number] Azithromycin [Z-Kodi 250mg Tab*] 250 mg PO UD DOSE PK #6 tab Transmission Status: Received by [id number] Referrals: Mina Dejesus MD [Primary Care Provider] - Forms: Work/School Release Time of Disposition: 16:14 Medical Decision Making - Medical Records Medical records reviewed: No: I reviewed the patient's medical records. - Marck Inquiry Pt receiving controlled substance: No Vital Signs: 07/30/21 15:22 07/30/21 16:33 Temperature 99.1 F 99.1 F Temperature Source Oral Pulse Rate 98 H Pulse Rate [Left] 98 H Respiratory Rate 14 14 Blood Pressure 128/80 Blood Pressure [Right Arm] 128/80 Blood Pressure Mean [Right Arm] 96 02 Sat by Pulse Oximetry 96 - Lab Data Lab results reviewed: Yes: I reviewed the patient's lab results. [facility] [place] HPI - General Stated complaint: cough, body aches, congestion Time Seen by Provider: 07/30/21 16:00 Mode of Arrival: Ambulatory Source of Information: Patient Limitations: No Limitations Description of Symptoms (Recalled from Triage Doc. by RN): pt c/o body aches, chills, congestion, LORENZO, sneezing, nasal drainage and a sore throat. x2 days. HEENT Symptoms (Recalled from RN notes): Yes (congestion, LORENZO, sneezing, nasal drainage and sore throat) Resp Symptoms (Recalled from RN notes): No Skin Symptoms (Recalled from RN notes): No MS Symptoms (Recalled from RN notes): No Functional Status (Recalled from RN notes): wnl - History of Present Illness Provider Complaint: She states that for the past 2 days she has had chest congestion, sinus congestion, body aches, scratchy sore throat. 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 She has not been vaccinated against covid-19, but she has had covid-19 3 times in the past. The last times she had it was about 5 months ago she estimates. - Related Data Home Medications Medication Instructions Recorded Confirmed Acetaminophen [Tylenol Arthritis] 650 mg PO DAILY 02/03/21 03/11/21 Naproxen Sodium [Aleve 220mg Tab] 220 mg PO BID 02/03/21 03/11/21 Previous Rx's Medication Instructions Recorded Brompheniramine/Pseudoephed/Dm 10 ml PO Q46H PRN #250 ml 05/23/21 [Bromfed Dm Cough Syrup] Fluticasone Propionate [Flonase 1 spr NS DAILY #1 each 05/23/21 50mcg nasal spray 16gm] Azithromycin [Z-Kodi 250mg Tab*] 250 mg PO UD DOSE PK #6 tab 07/30/21 Benzonatate [Benzonatate 100mg 100 mg PO TIDP PRN #30 cap 07/30/21 cap] guaiFENesin [Mucinex 600mg tablet] 1 - 2 tab PO BIDP PRN #30 tab 07/30/21 Allergies Allergy/AdvReac Type Severity Reaction Status Date / Time codeine [CODEINE] Allergy Mild ITCHY RASH Verified 03/11/21 16:08 honey [HONEY] Allergy Mild NA-NAUSEA/V Verified 03/11/21 16:08 OMITING Penicillins [PENICILLINS] Allergy Mild Verified 03/11/21 16:08 HONEY BEE Allergy Mild NA-NAUSEA/V Uncoded 03/02/19 12:17 OMITING - Worker's Comp Is this a Worker's Comp case?: No H History - Hepatitis A Screen Drug use history?: No High risk sexual behavior
[2021-07-30 16:33] VITALS: BP 128/80; PULSE 98; RESP 14; TEMP 37.3
== END 2021-07-30 16:34 | disposition home or self-care (01) ==
PROVIDERS: Emergency Provider Nurse Practitioner Family; PCP Family Medicine
DX: J20.9 Acute bronchitis, unspecified (principal); B34.9 Viral infection, unspecified; F17.210 Nicotine dependence, cigarettes, uncomplicated
CPT/HCPCS: 99202; C9803; G0463; U0003; U0005

== ENCOUNTER 2021-09-04 18:04 | Emergency (ER) | payer OTHER, SELFPAY ==
[2021-09-04 18:15] VITALS: BP 125/81; PULSE 89; RESP 18; TEMP 37.1; O2SAT 98; BMI 41.0
[2021-09-04 18:38] LABS: UTC Strep Screen (Rapid) Positive (Negative)
--- NOTE | 2021-09-04 18:47 | HMH.EDUTC ---
[facility] [place] Clinical Impression: Strep sore throat Disposition: Home, Self-Care Condition on Discharge: Good Instructions: DI for Strep Throat Additional Instructions: Start antibiotics today be sure to take it as ordered with the full length of time although you should start feeling better in 24-48 hours. Change toothbrush and toothpaste 24-48 hours after starting antibiotics Tylenol or Motrin as needed for fever or pain Encourage fluids, water, Gatorade, Powerade, try cold fluids, popsicles, ice cream will make it feel better You are contagious for 24 hours. Avoid kissing anyone, no eating or drinking after anyone. You are contagious. Follow-up the ER for new or worsening symptoms or no noticeable improvement over the next 24-48 hours. Follow-up with PCP this week. Prescriptions: Azithromycin [Zithromax 250mg tab] 250 mg PO DIRECTED #4 tab Transmission Status: Pending to [id number] Referrals: Mina Dejesus MD [Primary Care Provider] - Forms: Work/School Release Time of Disposition: 18:52 Medical Decision Making - Marck Inquiry Pt receiving controlled substance: No Vital Signs: 09/04/21 18:15 Temperature 98.8 F Temperature Source Oral Pulse Rate [Left Brachial] 89 Respiratory Rate 18 Blood Pressure [Left Arm] 125/81 Blood Pressure Mean [Left Arm] 95 Blood Pressure Source [Left Arm] Automatic Cuff Blood Pressure Position [Left Arm] Sitting 02 Sat by Pulse Oximetry 98 Oxygen Delivery Method Room Air - Lab Data Lab Results 09/04/21 18:36: Strep Scn Rapid Clinic Positive A [facility] [place] HPI - General Chief complaint: Urgent Treatment [facility] Stated complaint: fever,sore throat Time Seen by Provider: 09/04/21 18:47 Mode of Arrival: Ambulatory Source of Information: Patient Limitations: No Limitations Description of Symptoms (Recalled from Triage Doc. by RN): PATIENT C/O SORE THROAT, HEADACHE, FEVER AND BODY ACHES X 2 DAYS HEENT Symptoms (Recalled from RN notes): Yes Resp Symptoms (Recalled from RN notes): No Skin Symptoms (Recalled from RN notes): No MS Symptoms (Recalled from RN notes): No Functional Status (Recalled from RN notes): WNL - History of Present Illness Provider Complaint: 36 yr old female presents for sore throat and fever for 2 days - Related Data Home Medications Medication Instructions Recorded Confirmed Acetaminophen [Tylenol Arthritis] 650 mg PO DAILY 02/03/21 03/11/21 Naproxen Sodium [Aleve 220mg Tab] 220 mg PO BID 02/03/21 03/11/21 Previous Rx's Medication Instructions Recorded Brompheniramine/Pseudoephed/Dm 10 ml PO Q46H PRN #250 ml 05/23/21 [Bromfed Dm Cough Syrup] Fluticasone Propionate [Flonase 1 spr NS DAILY #1 each 05/23/21 50mcg nasal spray 16gm] Azithromycin [Z-Kodi 250mg Tab*] 250 mg PO UD DOSE PK #6 tab 07/30/21 Benzonatate [Benzonatate 100mg 100 mg PO TIDP PRN #30 cap 07/30/21 cap] guaiFENesin [Mucinex 600mg tablet] 1 - 2 tab PO BIDP PRN #30 tab 07/30/21 Azithromycin [Zithromax 250mg 250 mg PO DIRECTED #4 tab 09/04/21 tab] Allergies Allergy/AdvReac Type Severity Reaction Status Date / Time codeine [CODEINE] Allergy Mild ITCHY RASH Verified 03/11/21 16:08 honey [HONEY] Allergy Mild NA-NAUSEA/V Verified 03/11/21 16:08 OMITING Penicillins [PENICILLINS] Allergy Mild Verified 03/11/21 16:08 bee venom protein (honey bee) Allergy Verified 09/04/21 18:36 - Worker's Comp Is this a Worker's Comp case?: No [facility] History - Hepatitis A Screen Drug use history?: No High risk sexual behaviors?: No History of sexually transmitted infection?: No Currently employed?: No Childcare worker?: No Do you have indoor plumbing?: Yes Do you have electricity?: Yes Attestation statement:: This patient has been screened for Hepatitis A risk factors. I have reviewed the patient's past medical history: Yes 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: Denies:: Cancer, Diabetes Mellitus Type 1, Diabetes Mellitus Type 2, Hypertensi
[2021-09-04 18:53] VITALS: BP 125/81; PULSE 89; RESP 18; TEMP 37.1; O2SAT 98
== END 2021-09-04 18:58 | disposition home or self-care (01) ==
PROVIDERS: Emergency Provider Nurse Practitioner Family; PCP Family Medicine
DX: J02.0 Streptococcal pharyngitis (principal); B95.0 Streptococcus, group A, as the cause of diseases classified elsewhere; F17.210 Nicotine dependence, cigarettes, uncomplicated; Z79.51 Long term (current) use of inhaled steroids; Z79.899 Other long term (current) drug therapy; Z88.0 Allergy status to penicillin; Z88.5 Allergy status to narcotic agent; Z88.8 Allergy status to other drugs, medicaments and biological substances; Z91.030 Bee allergy status
CPT/HCPCS: 87880; 99213; G0463

== ENCOUNTER 2022-08-16 16:23 | Emergency (ER) | payer OTHER, SELFPAY ==
[2022-08-16 16:24] VITALS: BP 141/69; PULSE 87; RESP 20; TEMP 37.2; O2SAT 98; BMI 39.0
--- NOTE | 2022-08-16 17:16 | EXP.UTC ---
Discharge Plan Disposition Patient Disposition: Home, Self-Care Condition: Good Prescriptions Prescriptions: New prednisone 10 mg tablet 10 mg PO BID 3 Days Qty: 6 0RF azithromycin [Zithromax] 250 mg tablet 250 mg PO UD DOSE PK Qty: 6 0RF Rx Instructions: Take two (2) tablets today, then one (1) tablet days #2 thru #5 No Action medroxyprogesterone [Depo-Provera] 150 mg/mL suspension 150 mg IM [id number] Qty: 1 2RF Referrals Follow up/Referrals: Alisia Martinez APRN [Primary Care Provider] - See instructions Activity Restrictions/Add. Instructions Additional Instructions/Restrictions: Drink plenty of fluids. Take tylenol or ibuprofen for pain or fever. Take the medications as directed. Follow up with your regular doctor. GO TO THE ER FOR ANY WORSENING SYMPTOMS Clinical Impressions Clinical Impression: Acute viral syndrome, Pharyngitis Stand Alone Forms Stand Alone Forms: Work/School Release Instructions Patient Instructions: DI for Pharyngitis/Tonsillopharyngitis -- Adult, DI for Viral Syndrome Discharge ED Provider: Pratik Lerma [facility] General Stated complaint: LORENZO Sinus pressure Time Seen by Provider: 08/16/22 17:16 History of Present Illness Provider Complaint: She states that for the past 3 days she has had sinus congestion, scratchy sore throat, chills, and malaise. Related Data Previous Rx's Medication Instructions Recorded medroxyprogesterone 150 mg/mL 150 mg IM [id number] #1 mL 07/20/22 intramuscular suspension (Depo-Provera) azithromycin 250 mg tablet 250 mg PO UD DOSE PK #6 tabs 08/16/22 (Zithromax) prednisone 10 mg tablet 10 mg PO BID 3 days #6 tabs 08/16/22 Allergies Allergy/AdvReac Type Severity Reaction Status Date / Time codeine [CODEINE] Allergy Mild ITCHY RASH Verified 07/20/22 15:24 honey [HONEY] Allergy Mild NA-NAUSEA/V Verified 07/20/22 15:24 OMITING Penicillins [PENICILLINS] Allergy Mild Verified 07/20/22 15:24 bee venom protein (honey bee) Allergy Verified 07/20/22 15:24 [facility] Disclaimer: The information contained in this section may have been updated after the patient was seen, as this information can be updated by other users. 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 High cholesterol Family History Other Asthma Cancer Hyperlipidemia Social History Smoking Status: Current every day smoker tobacco type: cigarettes packs per day: 1 second hand exposure: Yes alcohol intake: never substance use type: denies use current occupational status: other Travel in the last 8 weeks: None household members: significant other and family housing: house ROS Obtained: Yes All systems reviewed & no additional complaints except as documented Constitutional Constitutional: Reports chills and Reports fever(s) Eyes Eyes: Denies eye discharge ENT Ears, Nose, Mouth, and Throat: Reports as per HPI Cardiovascular Cardiovascular: Denies chest pain Respiratory Respiratory: Denies chest congestion and Reports cough Gastrointestinal Gastrointestingal: Reports nausea; Denies abdominal pain, constipation, cramping, diarrhea or vomiting Musculoskeletal Musculoskeletal: Denies arthralgias Integumentary/Breasts Skin/Breast: Denies rash Neurologic Neurologic: Denies paresthesias Physical Exam General General appearance: alert and in no apparent distress Head Head exam: atraumatic, normocephalic and normal inspection Eye Eye exam: Present normal appearance, PERRL and EOMI ENT ENT exam: Present mucous membranes moist and normal external ear exam Expanded ENT Exam TM/Canal exam: Bilateral TM: erythema and bulging Nose exam: Absent sinus tenderness Mouth exam: Present normal external inspection; Absent drooling Teeth exam: Present normal inspection Throat exam: Present tonsillar joy
[2022-08-16 17:32] LABS: UTC Strep Screen (Rapid) Negative (Negative)
[2022-08-16 18:04] VITALS: BP 141/69; PULSE 87; RESP 20; TEMP 37.2; O2SAT 98
[2022-08-16 18:33] LABS: Adenovirus,PCR Not Detected (NotDetected); Bordetella Pertussis Not Detected (NotDetected); Chlamydophila Pneumoniae, PCR Not Detected (NotDetected); Coronavirus 19, PCR Not Detected (NotDetected); Coronavirus 229E Not Detected (NotDetected); Coronavirus NL63 Not Detected (NotDetected); Coronavirus OC43 Not Detected (NotDetected); Coronovirus HKU1,PCR Not Detected (NotDetected); Human Metapneumovirus Not Detected (NotDetected); Influenza A, PCR Not Detected (NotDetected); Influenza AH1, 2009 Not Detected (NotDetected); Influenza AH1, PCR Not Detected (NotDetected); Influenza AH3,PCR Not Detected (NotDetected); Influenza B, PCR Not Detected (NotDetected); Mycoplasma Pneumoniae, PCR Not Detected (NotDetected); Parainfluenza 1, PCR Not Detected (NotDetected); Parainfluenza 2, PCR Not Detected (NotDetected); Parainfluenza 3, PCR Not Detected (NotDetected); Parainfluenza 4, PCR Not Detected (NotDetected); Respiratory Syncytial Virus Not Detected (NotDetected); Rhinovirus/Enterovirus Not Detected (NotDetected)
== END 2022-08-16 18:04 | disposition home or self-care (01) ==
PROVIDERS: Emergency Provider Nurse Practitioner Family; PCP Nurse Practitioner Family
DX: J02.9 Acute pharyngitis, unspecified (principal); B34.9 Viral infection, unspecified
CPT/HCPCS: 87581; 87632; 87798; 87880; 99212; 99213; C9803; G0463; U0003; U0005

== ENCOUNTER 2022-09-27 19:40 | Emergency (ER) | payer OTHER, SELFPAY ==
[2022-09-27 19:45] VITALS: BP 119/74; PULSE 79; RESP 18; TEMP 37.2; O2SAT 100; BMI 39.0
--- NOTE | 2022-09-27 19:53 | EXP.UTC ---
Discharge Plan Disposition Patient Disposition: Home, Self-Care Condition: Good Prescriptions Prescriptions: New azithromycin [Zithromax] 250 mg tablet 250 mg PO UD DOSE PK Qty: 6 0RF Rx Instructions: Take two (2) tablets today, then one (1) tablet days #2 thru #5 benzonatate [benzonatate] 100 mg capsule 100 mg PO TIDP PRN (Reason: Cough) Qty: 30 0RF methylprednisolone 4 mg Tablets,Dose Pack 4 mg PO DIRECTED Qty: 21 0RF Referrals Follow up/Referrals: Alisia Martinez APRN [Primary Care Provider] - See instructions Activity Restrictions/Add. Instructions Additional Instructions/Restrictions: Drink plenty of fluids. Take tylenol or ibuprofen for pain or fever. Take the medications as directed. Follow up with your regular doctor. GO TO THE ER FOR ANY WORSENING SYMPTOMS Clinical Impressions Clinical Impression: Otitis media, Sinusitis Stand Alone Forms Stand Alone Forms: Work/School Release Instructions Patient Instructions: Sinusitis, DI for Sinusitis Discharge ED Provider: Pratik Lerma [facility] General Stated complaint: R ear pain Mode of Arrival: Ambulatory Source of Information: Patient Limitations: No Limitations Time Seen by Provider: 09/27/22 19:53 Description of Symptoms (Recalled from Triage Doc. by RN): right ear and jaw pain HEENT Symptoms (Recalled from RN notes): Yes Resp Symptoms (Recalled from RN notes): No Skin Symptoms (Recalled from RN notes): No MS Symptoms (Recalled from RN notes): No Functional Status (Recalled from RN notes): n/a History of Present Illness Provider Complaint: She states that she has had sinus congestion, ear pain and productive cough for the past 3 days. Related Data Previous Rx's Medication Instructions Recorded azithromycin 250 mg tablet 250 mg PO UD DOSE PK #6 tabs 09/27/22 (Zithromax) benzonatate 100 mg capsule 100 mg PO TIDP PRN Cough #30 caps 09/27/22 methylprednisolone 4 mg tablets in 4 mg PO DIRECTED #21 tabs 09/27/22 a dose pack Allergies Allergy/AdvReac Type Severity Reaction Status Date / Time codeine [CODEINE] Allergy Mild ITCHY RASH Verified 09/27/22 19:53 honey [HONEY] Allergy Mild NA-NAUSEA/V Verified 09/27/22 19:53 OMITING Penicillins [PENICILLINS] Allergy Mild Verified 09/27/22 19:53 bee venom protein (honey bee) Allergy Verified 09/27/22 19:53 Worker's Comp Is this a Worker's Comp case?: No [facility] Disclaimer: The information contained in this section may have been updated after the patient was seen, as this information can be updated by other users. 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 High cholesterol Family History Other Asthma Cancer Hyperlipidemia Social History Smoking Status: Current every day smoker tobacco type: cigarettes packs per day: 1 second hand exposure: Yes alcohol intake: never substance use type: denies use current occupational status: other Travel in the last 8 weeks: None household members: significant other and family housing: house ROS Obtained: Yes All systems reviewed & no additional complaints except as documented Constitutional Constitutional: Reports poor appetite Eyes Eyes: Reports system reviewed and no additional complaints, except as documented ENT Ears, Nose, Mouth, and Throat: Reports as per HPI Cardiovascular Cardiovascular: Reports system reviewed and no additional complaints, except as documented and Denies chest pain Respiratory Respiratory: Denies shortness of breath, Denies chest congestion, Reports cough, Denies stridor and Denies wheezing Gastrointestinal Gastrointestingal: Reports system reviewed and no additional complaints, except as documented; Denies abdominal pain, diarrhea or vomiting Musculoskeletal Musculoskeletal: Reports system reviewed and no additional complaint
[2022-09-27 20:21] VITALS: BP 119/74; PULSE 79; RESP 20; TEMP 37.2; O2SAT 100
== END 2022-09-27 20:21 | disposition home or self-care (01) ==
PROVIDERS: Emergency Provider Nurse Practitioner Family; PCP Nurse Practitioner Family
DX: J01.90 Acute sinusitis, unspecified (principal); H66.91 Otitis media, unspecified, right ear; R68.84 Jaw pain; F17.210 Nicotine dependence, cigarettes, uncomplicated
CPT/HCPCS: 99212; 99214; G0463

== ENCOUNTER 2022-11-05 16:49 | Emergency (ER) | payer OTHER, SELFPAY ==
[2022-11-05 18:18] VITALS: BP 112/73; PULSE 86; RESP 18; TEMP 37.3; O2SAT 99; BMI 41.2
--- NOTE | 2022-11-05 18:32 | EXP.UTC ---
Discharge Plan Disposition Patient Disposition: Home, Self-Care Condition: Good Prescriptions Prescriptions: New azithromycin [azithromycin] 250 mg tablet 250 mg PO DIRECTED Qty: 6 0RF Rx Instructions: Take two (2) tablets on day #1, then one (1) tablet day #2 thru #5 No Action medroxyprogesterone [Depo-Provera] 150 mg/mL suspension 150 mg IM [id number] Referrals Follow up/Referrals: Alisia Martinez APRN [Primary Care Provider] - See instructions Activity Restrictions/Add. Instructions Additional Instructions/Restrictions: Start antibiotic today. Be sure to complete entire prescription even if feeling better Tylenol and ibuprofen as needed for pain or fever Humidifier/vaporizer/hot steamy shower Follow-up with primary care tomorrow. Follow-up immediately in the ER of the [facility] for new or worsening symptoms or no noticeable improvement over the next 48-72 hours. Stop smoking Clinical Impressions Clinical Impression: Bronchitis Instructions Patient Instructions: DI for Acute Bronchitis Discharge ED Provider: Brock ([facility])[place]anna [facility] [place] General Stated complaint: cough congestion Mode of Arrival: Ambulatory Source of Information: Patient Limitations: No Limitations Time Seen by Provider: 11/05/22 18:33 Description of Symptoms (Recalled from Triage Doc. by RN): pt c/o chest congestion, cough and LORENZO since yesterday HEENT Symptoms (Recalled from RN notes): Yes Resp Symptoms (Recalled from RN notes): Yes Skin Symptoms (Recalled from RN notes): No MS Symptoms (Recalled from RN notes): No Functional Status (Recalled from RN notes): wnl History of Present Illness Provider Complaint: 37 yr old female presents c/o chest congestion, coughing up yellow green sputum and LORENZO since yesterday Related Data Home Medications Medication Instructions Recorded Confirmed medroxyprogesterone 150 mg/mL 150 mg IM [id number] 10/04/22 10/04/22 intramuscular suspension (Depo-Provera) Previous Rx's Medication Instructions Recorded azithromycin 250 mg tablet 250 mg PO DIRECTED #6 tabs 11/05/22 Allergies Allergy/AdvReac Type Severity Reaction Status Date / Time codeine [CODEINE] Allergy Mild ITCHY RASH Verified 11/05/22 18:21 honey [HONEY] Allergy Mild NA-NAUSEA/V Verified 11/05/22 18:21 OMITING Penicillins [PENICILLINS] Allergy Mild Verified 11/05/22 18:21 bee venom protein (honey bee) Allergy Verified 11/05/22 18:21 Worker's Comp Is this a Worker's Comp case?: No [facility] Disclaimer: The information contained in this section may have been updated after the patient was seen, as this information can be updated by other users. 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 , [employer]) High cholesterol Family History , [employer]) Hyperlipidemia Cancer Asthma Social History , [employer]) Smoking Status: Current every day smoker tobacco type: cigarettes packs per day: 1 second hand exposure: Yes alcohol intake: never substance use type: denies use current occupational status: other Travel in the last 8 weeks: None household members: significant other and family housing: house ROS Obtained: Yes All systems reviewed & no additional complaints except as documented Constitutional Constitutional: Reports system reviewed and no additional complaints, except as documented, Reports as per HPI and Reports headache(s) Eyes Eyes: Reports system reviewed and no additional complaints, except as documented and Reports as per HPI ENT Ears, Nose, Mouth, and Throat: Reports system reviewed and no additional complaints, except as documented, Reports as per HPI, Reports headache(s), Reports nasal congestion, Reports nasal discharge, Reports post nasal drip, Reports sinus pain, Reports sinus pressure and Reports sore throat Cardiovascular Cardiovascular: Reports sys
[2022-11-05 18:46] VITALS: BP 112/73; PULSE 86; RESP 18; TEMP 37.3
== END 2022-11-05 18:46 | disposition home or self-care (01) ==
PROVIDERS: Emergency Provider Nurse Practitioner Family; PCP Nurse Practitioner Family
DX: J20.9 Acute bronchitis, unspecified (principal); F17.210 Nicotine dependence, cigarettes, uncomplicated
CPT/HCPCS: 99212; 99214; G0463

== ENCOUNTER 2022-12-22 20:02 | Emergency (ER) | payer OTHER, SELFPAY ==
[2022-12-22 20:02] VITALS: BP 122/83; PULSE 91; RESP 19; TEMP 36.9; O2SAT 98; BMI 41.3
[2022-12-22 20:26] VITALS: BMI 41.3
--- NOTE | 2022-12-22 20:27 | XR_ITS ---
PROCEDURE INFORMATION: Exam: XR Left Foot Exam date and time: 12/22/2022 8:43 PM Age: 37 years old Clinical indication: Pain; Foot; Left; Additional info: Pain, injury TECHNIQUE: Imaging protocol: Radiologic exam of the left foot. Views: 3 or more views. COMPARISON: CR Ankle L 12/22/2022 8:42 PM FINDINGS: Bones/joints: Calcaneal spur. No acute fracture or dislocation. Soft tissues: Normal. IMPRESSION: No acute findings.
--- NOTE | 2022-12-22 20:27 | XR_ITS ---
PROCEDURE INFORMATION: Exam: XR Left Ankle Exam date and time: 12/22/2022 8:42 PM Age: 37 years old Clinical indication: Pain; Ankle; Left; Additional info: Pain, injury TECHNIQUE: Imaging protocol: Radiologic exam of the left ankle. Views: 3 or more views. COMPARISON: CR [id number] XR knee LT 3V 07/22/2018 11:15 PM FINDINGS: Bones/joints: Calcaneal spur. No acute fracture or dislocation. Soft tissues: Normal. IMPRESSION: No acute findings.
--- NOTE | 2022-12-22 20:41 | HMH.EDLOEX ---
Discharge Plan Disposition Patient Disposition: Home, Self-Care Chief Complaint: Extremity Injury, Lower Prescriptions Prescriptions: No Action No Known Home Medications Referrals Follow up/Referrals: Alisia Martinez APRN [Primary Care Provider] - See instructions Jacqueline Engel DPM [Staff Physician] - See instructions Clinical Impressions Clinical Impression: Foot sprain Stand Alone Forms Stand Alone Forms: Work/School Release Instructions Patient Instructions: DI for Foot Sprain Discharge ED Provider: Manju (ED)Stalin Lower Extremity Injury HPI General Chief Complaint: Extremity Injury, Lower Stated Complaint: AO06/21 LT foot inj Time Seen by Provider: 12/22/22 20:30 Mode of Arrival: Family Vehicle Source of Information: Patient and Medical Record Limitations: No Limitations Description of Symptoms (Recalled from ER Triage Doc. by RN): Pt c/o pain to her left foot and ankle. States she injured it when she was getting into her friend's truck and her foot slipped and got stuck in between the running board and truck. She has iced her foot, wrapped it, and taking Aleve however the pain is worsening. History of Present Illness HPI Narrative: pt with acute injury lt foot/ankle a couple of days ago - has inc pain cathi with wt bearing - MD complaint: ankle injury and foot injury Onset (ago): day(s) Injury: Left: ankle and foot Type of Injury: eversion Place: home Severity: moderate Exacerbating factors: weight bearing and movement Context: direct blow Associated symptoms: snap/pop sensation, swelling and able to partially bear weight Related Data Home Medications Medication Instructions Recorded Confirmed No Known Home Medications 12/22/22 12/22/22 Allergies Allergy/AdvReac Type Severity Reaction Status Date / Time codeine [CODEINE] Allergy Mild ITCHY RASH Verified 11/05/22 18:21 honey [HONEY] Allergy Mild NA-NAUSEA/V Verified 11/05/22 18:21 OMITING Penicillins [PENICILLINS] Allergy Mild Verified 11/05/22 18:21 bee venom protein (honey bee) Allergy Verified 11/05/22 18:21 [facility] Disclaimer: The information contained in this section may have been updated after the patient was seen, as this information can be updated by other users. 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[employer]) Smoking Status: Current every day smoker tobacco type: cigarettes packs per day: 1 second hand exposure: Yes alcohol intake: never substance use type: denies use current occupational status: other Travel in the last 8 weeks: None household members: significant other and family housing: house ROS Obtained: Yes All systems reviewed & no additional complaints except as documented Physical Exam General General appearance: alert Head Head exam: normocephalic Eye Eye exam: Present PERRL and EOMI ENT ENT exam: Present mucous membranes moist Neck Neck exam: Present trachea midline Respiratory Respiratory exam: Absent respiratory distress Cardiovascular Cardiovascular exam: Present regular rate Expanded Lower Extremity Exam Left: Lower leg exam: Present Achilles tendon intact Ankle exam: Present tenderness; Absent full ROM or swelling Foot/toe exam: Present tenderness and swelling; Absent full ROM Neurovascular/Tendon exam: Absent pulse deficit or motor deficit Neurological Exam Neurological exam: Present alert, oriented X3 and CN II-XII intact; Absent motor sensory deficit Psychiatric Psychiatric exam: Present normal affect Skin Skin exam: Absent rash Medical Decision Making Medical Records Medical records reviewed: Yes I reviewed the patient's medical records. Marck Inquiry Pt receiving controlled substance: No
[2022-12-22 21:10] VITALS: BP 120/80; PULSE 80; RESP 19; TEMP 36.8; O2SAT 98
--- NOTE | 2022-12-22 21:30 | PC.NURSE ---
Placed an kaushal wrap and a post op shoe on pts left foot/ankle. Pt also given a set of crutches and instructed on how to properly use them. CR
== END 2022-12-22 21:52 | disposition home or self-care (01) ==
PROVIDERS: Emergency Provider Emergency Medicine; PCP Nurse Practitioner Family
DX: S93.602A Unspecified sprain of left foot, initial encounter (principal); E78.5 Hyperlipidemia, unspecified; F17.210 Nicotine dependence, cigarettes, uncomplicated; V48.4XXA Person boarding or alighting a car injured in noncollision transport accident, initial encounter
CPT/HCPCS: 73610; 73630; 99283; 99284

== ENCOUNTER → 2023-01-09 11:11 | Outpatient (CLI) | payer OTHER, SELFPAY ==
--- NOTE | 2023-01-09 11:14 | XR_ITS ---
FINAL REPORT CLINICAL HISTORY: Foot Pain COMPARISON: 12/22/2022 FINDINGS: RIGHT FOOT 3 views of the right foot were obtained. There is no acute fracture or dislocation. Visualized joint spaces are normally aligned. Soft tissues are unremarkable. IMPRESSION: No acute bony abnormality. Reviewed, Interpreted and Dictated by Nicolás Veronica III, MD Transcribed by Shaniqua Moran Authenticated and . [facility]
--- NOTE | 2023-01-09 11:14 | XR_ITS ---
FINAL REPORT CLINICAL HISTORY: Foot Pain COMPARISON: 12/22/2022 FINDINGS: LEFT FOOT SERIES Three views of the left foot were obtained. There is no acute fracture or dislocation. The joint spaces are preserved. There is no soft tissue abnormality. There is a small plantar calcaneal spur. IMPRESSION: No acute abnormality. Reviewed, Interpreted and Dictated by Nicolás Veronica III, MD Transcribed by Shaniqua Moran Authenticated and [facility]
== END ==
PROVIDERS: PCP Nurse Practitioner Family; Visit Provider Podiatrist
DX: M79.671 Pain in right foot (principal); M79.672 Pain in left foot
CPT/HCPCS: 73630

== ENCOUNTER → 2023-02-08 12:58 | Outpatient (CLI) | payer OTHER, SELFPAY ==
--- NOTE | 2023-02-08 13:13 | MR_ITS ---
FINAL REPORT CLINICAL HISTORY: Pain left foot on plantar surface. swelling in foot and ankle FINDINGS: Multiplanar MR imaging of the left foot was performed without contrast. An osteochondral lesion is seen at the medial talar dome measuring 4 mm. The bony structures are intact without evidence of fracture, bone bruise or marrow edema. The flexor and extensor tendons are intact. No ligamentous injury is identified. The musculature is intact. The plantar aponeurosis is intact. No soft tissue mass or cyst is identified. IMPRESSION: No acute bony abnormality identified. Osteochondral lesion at the medial talar dome. Reviewed, Interpreted and Dictated by Nicolás Veronica III, MD Transcribed by Hanane Steele Authenticated and [facility]
== END ==
PROVIDERS: PCP Nurse Practitioner Family; Visit Provider Podiatrist
DX: M25.572 Pain in left ankle and joints of left foot (principal); M25.372 Other instability, left ankle; R60.0 Localized edema; S93.622D Sprain of tarsometatarsal ligament of left foot, subsequent encounter; S99.922D Unspecified injury of left foot, subsequent encounter
CPT/HCPCS: 73718

== ENCOUNTER → 2023-02-13 12:32 | Outpatient (CLI) | payer OTHER, SELFPAY ==
[2023-02-13 14:25] LABS: HCG,Quantitative < 2 mIU/ml (0-5.42)
== END ==
PROVIDERS: PCP Nurse Practitioner Family; Visit Provider Nurse Practitioner Obstetrics & Gynecology
DX: N92.6 Irregular menstruation, unspecified (principal)
CPT/HCPCS: 36415; 84702

== ENCOUNTER 2023-02-15 09:38 | Emergency (ER) | payer OTHER, SELFPAY ==
[2023-02-15 09:39] VITALS: BP 123/64; PULSE 93; RESP 18; TEMP 38; O2SAT 95; BMI 43.0
--- NOTE | 2023-02-15 09:51 | EXP.UTC ---
Discharge Plan Disposition Patient Disposition: Home, Self-Care Condition: Good Prescriptions Prescriptions: New azithromycin [Zithromax] 250 mg tablet 250 mg PO UD DOSE PK Qty: 6 0RF Rx Instructions: Take two (2) tablets today, then one (1) tablet days #2 thru #5 benzonatate [benzonatate] 100 mg capsule 100 mg PO TIDP PRN (Reason: Cough) Qty: 30 0RF ondansetron 4 mg Tablet,Disintegrating 4 mg PO Q8H PRN (Reason: Nausea) Qty: 12 0RF No Action meloxicam 7.5 mg tablet 7.5 mg PO ONCE Qty: 30 2RF Tylenol Extra Strength 500 mg powder in packet 1,000 mg PO Q4-6H PRN Referrals Follow up/Referrals: Alisia Martinez APRN [Primary Care Provider] - See instructions Activity Restrictions/Add. Instructions Additional Instructions/Restrictions: Drink plenty of fluids. Take tylenol or ibuprofen for pain or fever. Take the medications as directed. Follow up with your regular doctor. GO TO THE ER FOR ANY WORSENING SYMPTOMS Clinical Impressions Clinical Impression: Acute viral syndrome, Pharyngitis Stand Alone Forms Stand Alone Forms: Work/School Release Instructions Patient Instructions: DI for Pharyngitis/Tonsillopharyngitis -- Adult, DI for Viral Syndrome Discharge ED Provider: Pratik Lerma [facility] General Stated complaint: fever, sore throat, bilateral ear pain, h/a Time Seen by Provider: 02/15/23 09:51 History of Present Illness Provider Complaint: She states that for the past 3 days she has had sore throat, ear pain, sinus congestion and a cough. Related Data Home Medications Medication Instructions Recorded Confirmed acetaminophen 500 mg oral powder 1,000 mg PO Q4-6H PRN 01/09/23 01/09/23 packet (Tylenol Extra Strength) Previous Rx's Medication Instructions Recorded meloxicam 7.5 mg tablet 7.5 mg PO ONCE pain #30 tabs 12/26/22 azithromycin 250 mg tablet 250 mg PO UD DOSE PK #6 tabs 02/15/23 (Zithromax) benzonatate 100 mg capsule 100 mg PO TIDP PRN Cough #30 caps 02/15/23 ondansetron 4 mg disintegrating 4 mg PO Q8H PRN Nausea #12 tabs 02/15/23 tablet Allergies Allergy/AdvReac Type Severity Reaction Status Date / Time codeine [CODEINE] Allergy Mild ITCHY RASH Verified 01/09/23 11:45 honey [HONEY] Allergy Mild NA-NAUSEA/V Verified 01/09/23 11:45 OMITING Penicillins [PENICILLINS] Allergy Mild Verified 01/09/23 11:45 bee venom protein (honey bee) Allergy Verified 01/09/23 11:45 PFSH PFS Disclaimer: The information contained in this section may have been updated after the patient was seen, as this information can be updated by other users. 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 High cholesterol Family History Other Asthma Cancer Hyperlipidemia Social History Smoking Status: Current every day smoker tobacco type: cigarettes packs per day: 1 second hand exposure: Yes alcohol intake: never substance use type: denies use current occupational status: other Travel in the last 8 weeks: None household members: significant other and family housing: house ROS Obtained: Yes All systems reviewed & no additional complaints except as documented Constitutional Constitutional: Reports chills and Reports fever(s) Eyes Eyes: Denies eye discharge ENT Ears, Nose, Mouth, and Throat: Reports as per HPI Cardiovascular Cardiovascular: Denies chest pain Respiratory Respiratory: Denies chest congestion and Reports cough Gastrointestinal Gastrointestingal: Reports nausea; Denies abdominal pain, constipation, cramping, diarrhea or vomiting Musculoskeletal Musculoskeletal: Denies arthralgias Integumentary/Breasts Skin/Breast: Denies rash Neurologic Neurologic: Denies paresthesias Physical Exam General General appearance: alert and in no apparent distress Head Head exam: atrauma
[2023-02-15 10:03] LABS: UTC Strep Screen (Rapid) Negative (Negative)
[2023-02-15 10:14] VITALS: BP 123/64; PULSE 93; RESP 18; TEMP 38; O2SAT 95
== END 2023-02-15 10:22 | disposition home or self-care (01) ==
PROVIDERS: Emergency Provider Nurse Practitioner Family; PCP Nurse Practitioner Family
DX: U07.1 COVID-19 (principal); R50.9 Fever, unspecified; J02.9 Acute pharyngitis, unspecified; F17.210 Nicotine dependence, cigarettes, uncomplicated
CPT/HCPCS: 87880; 99212; 99214; G0463

== ENCOUNTER 2023-06-01 10:00 | Outpatient (RCR) | payer OTHER, SELFPAY ==
--- NOTE | 2023-04-30 09:19 | HMH.PTOPEV ---
PT Outpatient Evaluation Rehab PT Outpatient Evaluation Start: 04/30/23 08:21 Freq: Status: Active Protocol: Document 04/30/23 08:21 NIMISHA (Rec: 04/30/23 09:18 NIMISHA [id number]) E-signed By Katerina Rogers, PT Outpatient Therapy Subjective History Subjective History Pt is a 37 yo/ female who reports onset of L medial ankle/foot pain at end of October of this year due to rolling her ankle while stepping into a tall truck leading with the left leg. Pt reports initial soreness after the injury with progressed pain over the next few days with inability to weight bear on the LLE. Pt reports she then went to [facility] ER where they took xrays without significant findings and was placed in a heavy shoe. Pt reports she was then referred to Dr. Engel who placed her in a walking boot that she wore full-time until January then started to wean from the boot as tolerated. Pt reports she still wears the boot as needed with prolonged walking. Pt reports she was prescribed Meloxicam which does help with pain. Pt also had a L foot MRI at [facility] on 04/23 with impression of No acute bony abnormality identified. Osteochondral lesion at the medial talar dome. Pt states she was told she has a Lisfranc sprain as well. Pt reports continued intermittent pain of the L medial arch of the foot that often extends to the first two toes and is worse with weightbearing activities. Pt also reports increased pain during the first step after a sedentary period. Pt reports she often gets foot cramps and has some swelling of the medial aspect of the foot. Pt reports she tried a metatarsal pad in Dr. Engel's office which helped so she has ordered one for herself and is expected to receive it soon. Pt reports a sense of instability of the L foot/ ankle at times, denies further injury or falls. Pt reports some numbness of the medial foot that comes and goes. Pt reports she returns to Dr. Engel on 06/04/23. 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 Chief Complaint Pain,Spasms,Stiff,Swelling Symptom Type Throb,Dull,Numbness,Tingling Symptoms Relieved By Rest/Positioning,Ice, Prescription Meds Symptoms Aggravated By Standing,Physical Activity, Walking Prior Functional Limitations None Current Functional Limitations Standing,Recreation Activity, Walking,Stairs,Balance Symptom Description Intermittent Level of pain today (0-10) 1 Pain scale - at its best (0-10) 0 Pain scale - at its worst (0-10) 4 Ankle/Foot Eval Gait Observation General Gait Pattern Observation Antalgic Gait Assistive Device Ambulation Assistive Device None Palpation Tenderness left Ankle/Foot Palpation Findings Tenderness Ankle/Foot Palpation Overall Comment medial arch, 1-3rd MTPs ROM Ankle/Foot Dorsiflexion w/Knee Extended 9 Active Range Motion (degrees) Ankle/Foot Plantar Flexion Active Range 28 of Motion (degrees) Ankle/Foot Eversion Active Range of 15 Motion (degrees) Ankle/Foot Inversion Active Range of 20 Motion (degrees) MMT Ankle Dorsiflexion Strength Grade 5 Normal Ankle Plantarflexion Strength Grade 4 Good Foot Eversion Strength Grade 4 Good Foot Inversion Strength Grade 4 Good Special Tests Ankle Anterior Drawer Test Negative Left Talar Tilt Test Negative Left Foot/Heel Tap/Percussion Test Negative Left Lower Extremity Functional Index Activities Today, do you or would you have any difficulty at all with: a.Any of your usual work, housework or A little bit of difficulty school activities b. Your usual hobbies, recreational or A little bit of difficulty sporting activities c. Getting into or out of the bath No difficulty d. Walking between rooms No difficulty e. Putting on your shoes or socks No difficulty f. Squatting A little bit of difficulty g. Lifting an object, like a bag of No difficulty groceries from the floor h. Performing light activities around No difficulty your home i. Performing heavy activities around No difficulty your home j. Getting into or out of a car No difficulty k. Walking 2 blocks A little bit of difficulty l. Walking a mile A little bit of difficulty m. Going up or down 10 stairs (about 1 A little bit of difficulty flight of stairs) n. Standing for 1 hour No difficulty o. Sitting for 1 hour A little bit of difficulty p. Running on even ground No difficulty q. Running on uneven ground A little bit of difficulty r. Making sharp turns while running fast No difficulty s. Hopping No difficulty t. Rolling over in bed No difficulty LEFI Score Lower Extremity Functional Index Score 72 Outpatient Therapy Assessment Impairments Problems/Impairmments Palpation Tenderness,Impaired Range of Motion,Impaired Strength,Impaired Gait Pattern ,Impaired Walking,Impaired Standing,Impaired Stair Climbing,Impaired Incline Stepping,Impaired Stepping on Uneven Surface,Impaired Recreational Activities, Impaired Work Activities, Impaired Balance,Increased Edema,Subjective C/O Pain, Impaired Self Care/Self Management Prognosis Rehab Potential Good Clinical Impression Consistent with Diagnosis Yes Short Term Goals Number of Weeks 3 Improve Gait Pattern without Assistive Yes: demonstrate proper gait Device mechanics to dec fall risk and improve foot pain Increase Ability to Walk Yes Improve Balance Yes: FT EC on foam 30 without LOB to dec fall risk Improve Self Care/Self Management Yes Patient to be Ind w/ HEP Yes Penitentiary Goals Number of Weeks 6 Decreased Palpation Tenderness Yes: 0-1/4 TTP of medial L foot complex Increase Range of Motion Yes: Improve L PF AROM to WNL Increase Strength Yes: L ankle MMT 5/5 grossly to assist with functional activities Improve Ability to Climb Stairs Yes: 1-2 flights reciprocally with pain 1-2/10 to assist with home navigation Improve Tolerance to Work Activities Yes: full shift in tennis shoe with pain 1-2/10 to assist with occupation Improve Balance Yes: Tandem stance EO firm surface 30 without LOB to dec fall risk Improve LEFI Score Yes: Improve LEFS score to at least 75/80 to improve overall QOL Decrease Edema Yes Decrease Subjective C/O Pain Yes: Improve pain at worst to 1-2/10 to improve overall QOL Patient to be Ind w/ Advanced HEP Yes Outpatient Therapy Plan of Care Treatment Plan May Include Therapeutic Exercise Including Home Yes Exercise Program Manual Therapy Techniques Yes Neuromuscular Re-education Yes Therapeutic Activities to Return to Yes Previous Functional/Work Level Gait Training Yes ADL/Self Care Education Yes Dry Needling Yes Thermal Modalities Yes Electrical Stimulation Yes Ultrasound/Phonophoresis Yes Iontophoresis Yes Orthotics/Bracing/Splinting Yes Vasopneumatic Compression Pump Yes Massage Yes Manual Lymphatic Drainage Yes Eval/Re-Eval Yes Frequency Times per week 2 Duration Number of Weeks 4-6 Addendums This patient is a candidate for social No or vocational rehab? Patient/Guardian verbally acknowledges Yes understanding of treatment program and consents to further treatment? Patient/Guardian verbally acknowledges Yes understanding of diagnosis, prognosis and goals for treatment? Eval Complexity PT Charges 24736 - Low Complexity Shoulder/Elbow Eval Shoulder Objective Measurements Elbow Objective Measurements PHYSICIAN CERTIFICATION: I certify the specified therapy services for Nyasiahansa Collier Silcox are required, authorized, and reviewed every 30 days.
== END 2023-06-01 11:00 | disposition home or self-care (01) ==
LOC: PT 10:00
PROVIDERS: PCP Nurse Practitioner Family; Visit Provider Podiatrist
DX: M25.372 Other instability, left ankle (principal); M79.672 Pain in left foot; S93.622A Sprain of tarsometatarsal ligament of left foot, initial encounter
CPT/HCPCS: 97010; 97014; 97035; 97110; 97163; G0283

== ENCOUNTER 2023-06-16 18:48 | Emergency (ER) | payer OTHER, SELFPAY ==
[2023-06-16 18:55] VITALS: BP 139/76; PULSE 89; RESP 20; TEMP 36.8; O2SAT 96; BMI 43.0
--- NOTE | 2023-06-16 19:18 | EXP.UTC ---
Discharge Plan Disposition Patient Disposition: Home, Self-Care Condition: Good Prescriptions Prescriptions: New azithromycin [Zithromax] 250 mg tablet 250 mg PO UD DOSE PK Qty: 6 0RF Rx Instructions: Take two (2) tablets today, then one (1) tablet days #2 thru #5 zloehiezkxdshow-bsvfvarha-UM [Bromfed DM] 2-30-10 mg/5 mL Syrup 5 ml PO Q6H PRN (Reason: Cough) Qty: 240 0RF guaifenesin [Mucinex] 600 mg tablet extended release 12hr 600 - 1,200 mg PO BIDP PRN (Reason: Congestion) Qty: 30 0RF methylprednisolone 4 mg Tablets,Dose Pack 4 mg PO DIRECTED Qty: 21 0RF Referrals Follow up/Referrals: Alisia Martinez APRN [Primary Care Provider] - See instructions Activity Restrictions/Add. Instructions Additional Instructions/Restrictions: Drink plenty of fluids. Take tylenol or ibuprofen for pain or fever. Take the medications as directed. Follow up with your regular doctor. GO TO THE ER FOR ANY WORSENING SYMPTOMS Clinical Impressions Clinical Impression: Sinusitis Instructions Patient Instructions: Sinusitis, DI for Sinusitis Discharge ED Provider: Pratik Lerma [facility] General Stated complaint: face pain, eye pain Mode of Arrival: Ambulatory Source of Information: Patient Limitations: No Limitations Time Seen by Provider: 06/16/23 19:18 Description of Symptoms (Recalled from Triage Doc. by RN): PATIENT C/O TOOTH PAIN, EAR PAIN, SNEEZING AND CONGESTION THAT STARTED YESTERDAY HEENT Symptoms (Recalled from RN notes): Yes Resp Symptoms (Recalled from RN notes): No Skin Symptoms (Recalled from RN notes): No MS Symptoms (Recalled from RN notes): No Functional Status (Recalled from RN notes): WNL History of Present Illness Provider Complaint: She states that for the past 3 days she has had worsening sinus congestion and ear pain. She denies any fever/chills/body aches. Related Data Previous Rx's Medication Instructions Recorded azithromycin 250 mg tablet 250 mg PO UD DOSE PK #6 tabs 06/16/23 (Zithromax) iqmhenqiadhkrqm-jhqrhuburnykdsm-JA 5 ml PO Q6H PRN Cough #240 mL 06/16/23 2 mg-30 mg-10 mg/5 mL oral syrup (Bromfed DM) guaifenesin 600 mg tablet, 600 - 1,200 mg PO BIDP PRN 06/16/23 extended release 12 hr (Mucinex) Congestion #30 tabs methylprednisolone 4 mg tablets in 4 mg PO DIRECTED #21 tabs 06/16/23 a dose pack Allergies Allergy/AdvReac Type Severity Reaction Status Date / Time codeine [CODEINE] Allergy Mild ITCHY RASH Verified 04/23/23 09:31 honey [HONEY] Allergy Mild NA-NAUSEA/V Verified 04/23/23 09:31 OMITING Penicillins [PENICILLINS] Allergy Mild Verified 04/23/23 09:31 bee venom protein (honey bee) Allergy Verified 04/23/23 09:31 Worker's Comp Is this a Worker's Comp case?: No [facility] Disclaimer: The information contained in this section may have been updated after the patient was seen, as this information can be updated by other users. 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 High cholesterol Family History Other Asthma Cancer Hyperlipidemia Social History Smoking Status: Current every day smoker tobacco type: cigarettes packs per day: 1 second hand exposure: Yes alcohol intake: never substance use type: denies use current occupational status: other Travel in the last 8 weeks: None household members: significant other and family housing: house ROS Obtained: Yes All systems reviewed & no additional complaints except as documented Constitutional Constitutional: Reports poor appetite Eyes Eyes: Reports system reviewed and no additional complaints, except as documented ENT Ears, Nose, Mouth, and Throat: Reports as per HPI Cardiovascular Cardiovascular: Reports system reviewed and no additional complaints, except as documented and Denies chest pain Respiratory Respiratory: Denies shortness
[2023-06-16 19:31] VITALS: BP 139/76; PULSE 89; RESP 20; TEMP 36.8; O2SAT 96
== END 2023-06-16 19:44 | disposition home or self-care (01) ==
PROVIDERS: Emergency Provider Nurse Practitioner Family; PCP Nurse Practitioner Family
DX: J01.90 Acute sinusitis, unspecified (principal); H92.09 Otalgia, unspecified ear; R09.81 Nasal congestion; F17.210 Nicotine dependence, cigarettes, uncomplicated
CPT/HCPCS: 99212; 99214; G0463

== ENCOUNTER 2023-07-17 19:37 | Emergency (ER) | payer OTHER, SELFPAY ==
[2023-07-17 19:38] VITALS: BP 122/68; PULSE 96; RESP 17; TEMP 36.8; O2SAT 96; BMI 43.0
--- NOTE | 2023-07-17 19:47 | XR_ITS ---
PROCEDURE INFORMATION: Exam: XR Left Hand Exam date and time: 07/17/2023 7:47 PM Age: 38 years old Clinical indication: Pain; Hand; Left; Additional info: Left thumb injury and pain TECHNIQUE: Imaging protocol: Radiologic exam of the left hand. Views: 3 or more views. COMPARISON: CR [id number] XR elbow LT min 3V 07/22/2018 11:11 PM FINDINGS: Bones/joints: Contour irregularity at the radial margin of the scaphoid may represent occult fracture if there is point tenderness at this location. No acute osseous abnormality of the left thumb. Soft tissues: Normal. IMPRESSION: 1. Contour irregularity at the radial margin of the scaphoid may represent occult fracture if there is point tenderness at this location. 2. No acute osseous abnormality of the left thumb.
[2023-07-17 20:01] VITALS: BP 122/68; PULSE 82; O2SAT 96
--- NOTE | 2023-07-17 20:04 | HMH.EDGENADL ---
Discharge Plan Disposition Patient Disposition: Home, Self-Care Prescriptions Prescriptions: No Action No Known Home Medications Referrals Follow up/Referrals: Alisia Martinez APRN [Primary Care Provider] - See instructions Activity Restrictions/Add. Instructions Additional Instructions/Restrictions: Call your family doctor to establish care for this visit to the emergency department and schedule follow-up within 48 hours to ensure improvement. If you have any worsening of your condition or any other concerning signs or symptoms, return to the emergency department or your primary care doctor for further evaluation. Take Tylenol 1000 mg every 6 hours (4 times daily) and ibuprofen 400 mg every 6 hours (4 times daily) as needed with food and water to prevent GI upset and kidney damage. Clinical Impressions Clinical Impression: Pain of left thumb Discharge ED Provider: Anup Ewing General Adult HPI General Chief complaint: Extremity Injury, Upper Stated complaint: AO01/ Lt thumb inj Time Seen by Provider: 07/17/23 19:44 Mode of Arrival: Ambulatory Source of Information: Patient Limitations: No Limitations Description of Symptoms (Recalled from ER Triage Doc. by RN): Patient reports she was roughhousing with her kids on Friday 07/14 and stubbeb her left thumb. She felt pain at time of injury and assumed it would resolve over time. Patient reports swelling, limited mobility due to pain, and significant tenderness that continues with the left base of thumb. History of Present Illness HPI narrative: 38-year-old female no relevant medical history presenting with left arm pain. Patient states that 4 days prior to this visit she was at home doing recreational activities with her kids. One of them accidentally bent her thumb back and she felt a pop and had immediate pain. Has not gotten progressively more swollen and painful, but is persistently painful and stiff, so came to the emergency department for further evaluation to make sure is not broken. Related Data Home Medications Medication Instructions Recorded Confirmed No Known Home Medications 07/17/23 07/17/23 Allergies Allergy/AdvReac Type Severity Reaction Status Date / Time codeine [CODEINE] Allergy Mild ITCHY RASH Verified 04/23/23 09:31 honey [HONEY] Allergy Mild NA-NAUSEA/V Verified 04/23/23 09:31 OMITING Penicillins [PENICILLINS] Allergy Mild Verified 04/23/23 09:31 bee venom protein (honey bee) Allergy Verified 04/23/23 09:31 [facility] Disclaimer: The information contained in this section may have been updated after the patient was seen, as this information can be updated by other users. 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 High cholesterol Family History Other Asthma Cancer Hyperlipidemia Social History Smoking Status: Never smoker second hand exposure: Yes alcohol intake: never substance use type: denies use current occupational status: other Travel in the last 8 weeks: None household members: significant other and family housing: house ROS Obtained: Yes All systems reviewed & no additional complaints except as documented Physical Exam General General appearance: alert and in no apparent distress Head Head exam: atraumatic and normocephalic Eye Eye exam: Present normal appearance, PERRL and EOMI ENT ENT exam: Present mucous membranes moist Neck Neck exam: Present normal inspection, full ROM and trachea midline Respiratory Respiratory exam: Absent respiratory distress, wheezes, stridor, accessory muscle use or prolonged expiratory phase Cardiovascular Cardiovascular exam: Present normal rhythm Abdominal Exam Abdominal exam: Present soft; Absent distention, tenderness, guarding, rebound or rigidity Extremities Exam Extremities exam: Present other (Tenderness without significant swelling at MCP joint of left thumb. Neurovascular intact, full range of motion); Absent edema Neurological Exam Neurological exam: Present alert, oriented X3, CN II-XII intact and normal gait; Absent motor sensory deficit Skin Skin exam: Present warm and dry; Absent diaphoresis or erythema Medical Decision Making Medical Records Medical records reviewed: Yes I reviewed the patient's medical records. Marck Inquiry Pt receiving controlled substance: No Marck was queried for this patient: No Vital Signs: 07/17/23 19:38 07/17/23 20:01 Temperature 98.2 F Temperature Source Oral Pulse Rate 82 Pulse Rate [Left Radial] 96 H Respiratory Rate 17 Blood Pressure 122/68 Blood Pressure [Right Arm] 122/68 Blood Pressure Mean [Right Arm] 86 Blood Pressure Source [Right Arm] Automatic Cuff Blood Pressure Position [Right Arm] Sitting 02 Sat by Pulse Oximetry 96 96 Oxygen Delivery Method Room Air Room Air Orders (Tests/Meds): ORDERS Category Date Time Status Hand XR left minimum 3 views [XR hand LT min 3V] Stat Exams 01/16/24 19:47 Taken Medical Decision Narrative: 38-year-old female no relevant medical history presenting with left arm pain. Patient states that 4 days prior to this visit she was at home doing recreational activities with her kids. One of them accidentally bent her thumb back and she felt a pop and had immediate pain. Has not gotten progressively more swollen and painful, but is persistently painful and stiff, so came to the emergency department for further evaluation to make sure is not broken. History obtained with patient. On physical exam, patient has fully neurovascularly intact left hand with full range of motion without significant swelling, or outward signs of injury or deformity. Differential includes sprain, strain, fracture, dislocation, subluxation, among others. Workup independently interpreted and significant for normal bony exam on left hand x-rays. See radiology read for further interpretation. Because patient at baseline without signs or symptoms of clinical decompensation, deemed appropriate for discharge. Results were relayed to patient who voiced understanding and were agreeable to outpatient management and follow up. At the time of discharge the patient was hemodynamically stable, tolerating PO, and mobilizing appropriately. Critical Care Critical Care Time Critical Care Time: No
[2023-07-17 20:30] VITALS: BP 128/74; PULSE 95; RESP 18; TEMP 36.8; O2SAT 96
== END 2023-07-17 20:31 | disposition home or self-care (01) ==
PROVIDERS: Emergency Provider Emergency Medicine; PCP Nurse Practitioner Family
DX: M79.645 Pain in left finger(s) (principal); W23.0XXA Caught, crushed, jammed, or pinched between moving objects, initial encounter
CPT/HCPCS: 73130; 99283

== ENCOUNTER 2023-08-30 08:21 | Emergency (ER) | payer OTHER, SELFPAY ==
[2023-08-30 08:40] VITALS: BP 139/60; PULSE 72; RESP 18; TEMP 36.8; O2SAT 99; BMI 43.9
--- NOTE | 2023-08-30 08:53 | ED_ITS ---
Discharge Plan Disposition Patient Disposition: Home, Self-Care Condition: Good Prescriptions Prescriptions: New azithromycin [Zithromax] 250 mg tablet 250 mg PO UD DOSE PK Qty: 6 0RF Rx Instructions: Take two (2) tablets today, then one (1) tablet days #2 thru #5 methylprednisolone 4 mg Tablets,Dose Pack 4 mg PO DIRECTED 6 Days Qty: 21 0RF Rx Instructions: Take 1 pack as directed for 6 days cdlrrapwggpbcau-nxzqinjtw-KI [Bromfed DM] 2-30-10 mg/5 mL Syrup 5 ml PO Q6H PRN (Reason: Cough) Qty: 240 0RF ondansetron 4 mg Tablet,Disintegrating 4 mg PO Q8H PRN (Reason: Nausea) Qty: 12 0RF Referrals Follow up/Referrals: Alisia Martinez APRN [Primary Care Provider] - See instructions Activity Restrictions/Add. Instructions Additional Instructions/Restrictions: Drink plenty of fluids. Take tylenol or ibuprofen for pain or fever. Take the medications as directed. Follow up with your regular doctor. GO TO THE ER FOR ANY WORSENING SYMPTOMS Clinical Impressions Clinical Impression: Viral syndrome, Pharyngitis, Sinusitis Stand Alone Forms Stand Alone Forms: Work/School Release Instructions Patient Instructions: DI for Pharyngitis/Tonsillopharyngitis -- Adult, DI for Acute Bronchitis, DI for Viral Syndrome Discharge ED Provider: Pratik Lerma [facility] General Stated complaint: fever, nausea, congestion Time Seen by Provider: 08/30/23 08:52 History of Present Illness Provider Complaint: She states that for the past 1 day she has had fever, nausea, sinus congestion and cough. Related Data Previous Rx's Medication Instructions Recorded azithromycin 250 mg tablet 250 mg PO UD DOSE PK #6 tabs 08/30/23 (Zithromax) hnehfvraspgwnav-erirhfkbnjarbhr-YD 5 ml PO Q6H PRN Cough #240 mL 08/30/23 2 mg-30 mg-10 mg/5 mL oral syrup (Bromfed DM) methylprednisolone 4 mg tablets in 4 mg PO DIRECTED 6 days #21 tabs 08/30/23 a dose pack ondansetron 4 mg disintegrating 4 mg PO Q8H PRN Nausea #12 tabs 08/30/23 tablet Allergies Allergy/AdvReac Type Severity Reaction Status Date / Time codeine [CODEINE] Allergy Mild ITCHY RASH Verified 08/30/23 08:57 honey [HONEY] Allergy Mild NA-NAUSEA/V Verified 08/30/23 08:57 OMITING Penicillins [PENICILLINS] Allergy Mild Verified 08/30/23 08:57 bee venom protein (honey bee) Allergy Verified 08/30/23 08:57 [facility] Disclaimer: The information contained in this section may have been updated after the patient was seen, as this information can be updated by other users. 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 High cholesterol Family History Other Asthma Cancer Hyperlipidemia Social History Smoking Status: Never smoker second hand exposure: Yes alcohol intake: never substance use type: denies use current occupational status: other Travel in the last 8 weeks: None household members: significant other and family housing: house ROS Obtained: Yes All systems reviewed & no additional complaints except as documented Constitutional Constitutional: Reports chills and Reports fever(s) Eyes Eyes: Denies eye discharge ENT Ears, Nose, Mouth, and Throat: Reports as per HPI Cardiovascular Cardiovascular: Denies chest pain Respiratory Respiratory: Denies chest congestion and Reports cough Gastrointestinal Gastrointestingal: Reports nausea; Denies abdominal pain, constipation, cramping, diarrhea or vomiting Musculoskeletal Musculoskeletal: Denies arthralgias Integumentary/Breasts Skin/Breast: Denies rash Neurologic Neurologic: Denies paresthesias Physical Exam General General appearance: alert and in no apparent distress Head Head exam: atraumatic, normocephalic and normal inspection Eye Eye exam: Present normal appearance, PERRL and EOMI ENT ENT exam: Present mucous membranes moist and normal external ear exam Expanded ENT Exam TM/Canal exam: Bilateral TM: erythema and bulging Nose exam: Absent sinus tenderness Mouth exam: Present normal external inspection; Absent drooling Teeth exam: Present normal inspection Throat exam: Present tonsillar erythema, tonsillomegaly and tonsillar exudate Neck Neck exam: Present normal inspection, full ROM and trachea midline; Absent tenderness, meningismus or lymphadenopathy Chest Chest inspection: Present normal inspection and symmetric chest wall rise; Absent tenderness Respiratory Respiratory exam: Present normal lung sounds bilaterally; Absent respiratory distress, wheezes or stridor Cardiovascular Cardiovascular exam: Present regular rate and normal rhythm; Absent systolic murmur or diastolic murmur Abdominal Exam Abdominal exam: Present soft and normal bowel sounds; Absent distention, tenderness, guarding, rebound or rigidity Extremities Exam Extremities exam: Present normal inspection and normal capillary refill; Absent calf tenderness Back Exam Back exam: Present normal inspection and full ROM; Absent tenderness, CVA tenderness (R) or CVA tenderness (L) Neurological Exam Neurological exam: Present alert, oriented X3 and CN II-XII intact Psychiatric Psychiatric exam: Present normal affect and normal mood Skin Skin exam: Present warm, dry, intact and normal color Medical Decision Making Medical Records Medical records reviewed: No I reviewed the patient's medical records. Marck Gray Pt receiving controlled substance: No Lab Data Lab results reviewed: Yes I reviewed the patient's lab results.
[2023-08-30 09:09] LABS: UTC Strep Screen (Rapid) Negative (Negative)
[2023-08-30 09:10] LABS: UTC Influenza A Antigen Negative (Negative); UTC Influenza B Antigen Negative (Negative)
[2023-08-30 09:50] VITALS: BP 139/60; PULSE 72; RESP 18; TEMP 36.8; O2SAT 99
[2023-08-30 10:01] LABS: Coronavirus 19, PCR Not Detected (NotDetected); Influenza A, PCR Not Detected (NotDetected); Influenza B, PCR Not Detected (NotDetected)
== END 2023-08-30 09:52 | disposition home or self-care (01) ==
PROVIDERS: Emergency Provider Nurse Practitioner Family; PCP Nurse Practitioner Family
DX: J01.90 Acute sinusitis, unspecified (principal); J02.9 Acute pharyngitis, unspecified; R50.9 Fever, unspecified; R11.0 Nausea; R05.9 Cough, unspecified; R09.81 Nasal congestion; B34.9 Viral infection, unspecified
CPT/HCPCS: 87636; 87804; 87880; 99212; 99214; G0463

== ENCOUNTER 2023-10-29 10:21 | Emergency (ER) | payer OTHER, SELFPAY ==
--- NOTE | 2023-10-29 10:26 | ED_ITS ---
Discharge Plan Disposition Patient Disposition: Home, Self-Care Condition: Good Prescriptions Prescriptions: New methylprednisolone 4 mg Tablets,Dose Pack 4 mg PO DIRECTED 6 Days Qty: 21 0RF Rx Instructions: Take 1 pack as directed for 6 days zbhfdrmnuuiwyji-tlirfeeuk-YQ [Bromfed DM] 2-30-10 mg/5 mL Syrup 5 ml PO Q6H PRN (Reason: Cough) Qty: 240 0RF ondansetron 4 mg Tablet,Disintegrating 4 mg PO Q8H PRN (Reason: Nausea) Qty: 12 0RF cefdinir 300 mg capsule 300 mg PO BID Qty: 20 0RF guaifenesin [Mucinex] 600 mg tablet extended release 12hr 600 - 1,200 mg PO BIDP PRN (Reason: Congestion) Qty: 30 0RF Referrals Follow up/Referrals: Alisia Martinez APRN [Primary Care Provider] - See instructions Activity Restrictions/Add. Instructions Additional Instructions/Restrictions: Drink plenty of fluids. Take tylenol or ibuprofen for pain or fever. Take the medications as directed. Follow up with your regular doctor. GO TO THE ER FOR ANY WORSENING SYMPTOMS Don't start the oral steroids (medrol dose pack) until tomorrow since you had the steroid shot here today. Clinical Impressions Clinical Impression: Bronchitis, Sinusitis, Acute viral syndrome Stand Alone Forms Stand Alone Forms: Work/School Release Instructions Patient Instructions: Sinusitis, DI for Sinusitis Discharge ED Provider: Pratik Lerma [facility] HPI General Stated complaint: congestion, nausea, vomiting Time Seen by Provider: 10/29/23 10:26 History of Present Illness Provider Complaint: She reports that she has had sinus congestion, sore throat, chest congestion, productive cough, pleuritic type chest pain, n/v/d for the past 2 days. Related Data Previous Rx's Medication Instructions Recorded vjkmcdluzrbzzuu-sqnlfvzwmfazvcg-KN 5 ml PO Q6H PRN Cough #240 mL 10/29/23 2 mg-30 mg-10 mg/5 mL oral syrup (Bromfed DM) cefdinir 300 mg capsule 300 mg PO BID #20 caps 10/29/23 guaifenesin 600 mg tablet, 600 - 1,200 mg (1 - 2 x 600 mg) PO 10/29/23 extended release 12 hr (Mucinex) BIDP PRN Congestion #30 tabs methylprednisolone 4 mg tablets in 4 mg PO DIRECTED 6 days #21 tabs 10/29/23 a dose pack ondansetron 4 mg disintegrating 4 mg PO Q8H PRN Nausea #12 tabs 10/29/23 tablet Allergies Allergy/AdvReac Type Severity Reaction Status Date / Time codeine [CODEINE] Allergy Mild ITCHY RASH Verified 10/29/23 10:53 honey [HONEY] Allergy Mild NA-NAUSEA/V Verified 10/29/23 10:53 OMITING Penicillins [PENICILLINS] Allergy Mild Verified 10/29/23 10:53 bee venom protein (honey bee) [facility]ergy [facility]/29/23 10:[facility] Disclaimer: The information contained in this section may have been updated after the patient was seen, as this information can be updated by other users. 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 High cholesterol Family History Other Asthma Cancer Hyperlipidemia Social History Smoking Status: Never smoker second hand exposure: Yes alcohol intake: never substance use type: denies use current occupational status: other Travel in the last 8 weeks: None household members: significant other and family housing: house ROS Obtained: Yes All systems reviewed & no additional complaints except as documented Constitutional Constitutional: Reports poor appetite Eyes Eyes: Reports system reviewed and no additional complaints, except as documented ENT Ears, Nose, Mouth, and Throat: Reports as per HPI Cardiovascular Cardiovascular: Reports system reviewed and no additional complaints, except as documented and Denies chest pain Respiratory Respiratory: Denies shortness of breath, Reports chest congestion, Reports cough, Denies stridor and Denies wheezing Gastrointestinal Gastrointestingal: Reports system reviewed and no additional complaints, except as documented; Denies abdominal pain, diarrhea or vomiting Musculoskeletal Musculoskeletal: Reports system reviewed and no additional complaints, except as documented and Denies arthralgias Integumentary/Breasts Skin/Breast: Reports system reviewed and no additional complaints, except as documented and Denies rash Neurologic Neurologic: Denies paresthesias Allergic/Immunologic Allergic/Immunologic: Denies wheezing Physical Exam General General appearance: alert and in no apparent distress Eye Eye exam: Present normal appearance, PERRL and EOMI ENT ENT exam: Present mucous membranes moist and normal external ear exam Expanded ENT Exam External ear exam: Present normal external inspection TM/Canal exam: Bilateral TM: erythema and bulging Nose exam: Absent sinus tenderness Nasal speculum exam: Bilateral: normal Mouth exam: Present normal external inspection; Absent drooling Teeth exam: Present normal inspection Throat exam: Present tonsillar erythema and tonsillomegaly Neck Neck exam: Present normal inspection, full ROM and trachea midline; Absent tenderness, lymphadenopathy or thyromegaly Chest Chest inspection: Present normal inspection and symmetric chest wall rise; Absent tenderness or rash Respiratory Respiratory exam: Present normal lung sounds bilaterally; Absent respiratory distress, wheezes, stridor or accessory muscle use Cardiovascular Cardiovascular exam: Present regular rate, normal rhythm and normal heart sounds Abdominal Exam Abdominal exam: Present soft; Absent distention, tenderness, guarding, rebound or rigidity Extremities Exam Extremities exam: Present normal inspection, full ROM and normal capillary refill; Absent tenderness or calf tenderness Back Exam Back exam: Present normal inspection and full ROM; Absent tenderness Neurological Exam Neurological exam: Present alert and oriented X3 Psychiatric Psychiatric exam: Present normal affect and normal mood Skin Skin exam: Present warm, dry, intact and normal color Lymphatic Lymphatic Findings: no adenopathy Medical Decision Making Medical Records Medical records reviewed: No I reviewed the patient's medical records. Marck Inquiry Pt receiving controlled substance: No
[2023-10-29 10:47] LABS: UTC Influenza A Antigen Negative (Negative); UTC Influenza B Antigen Negative (Negative); UTC Strep Screen (Rapid) Negative (Negative)
[2023-10-29 10:50] VITALS: BP 111/67; PULSE 79; RESP 18; TEMP 36.9; O2SAT 98; BMI 44.3
[2023-10-29] MEDS: DEXAMETHASONE 4MG/ML 1ML VIAL 8 MG IM (11:13)
[2023-10-29 11:23] VITALS: BP 111/67; PULSE 79; RESP 18; TEMP 36.9; O2SAT 98
--- NOTE | 2023-10-29 11:23 | PC.NURSE ---
Sent rapid up to lab via tube system
[2023-10-29 11:29] LABS: Coronavirus 19, PCR Not Detected (NotDetected); Influenza A, PCR Not Detected (NotDetected); Influenza B, PCR Not Detected (NotDetected)
== END 2023-10-29 11:23 | disposition home or self-care (01) ==
PROVIDERS: Emergency Provider Nurse Practitioner Family; PCP Nurse Practitioner Family
DX: J20.9 Acute bronchitis, unspecified (principal); J01.90 Acute sinusitis, unspecified; R07.0 Pain in throat; R11.2 Nausea with vomiting, unspecified; B34.9 Viral infection, unspecified
CPT/HCPCS: 87636; 87804; 87880; 96372; 99212; 99214; G0463

== ENCOUNTER 2023-11-03 18:20 | Emergency (ER) | payer OTHER, SELFPAY ==
[2023-11-03 18:25] VITALS: BP 95/62; PULSE 86; RESP 20; TEMP 36.9; O2SAT 99; BMI 44.3
--- NOTE | 2023-11-03 18:33 | ED_ITS ---
Discharge Plan Disposition Patient Disposition: Home, Self-Care Condition: Good Prescriptions Prescriptions: New promethazine 25 mg tablet 25 mg PO TID PRN (Reason: nausea and vomiting) Qty: 20 0RF No Action methylprednisolone 4 mg Tablets,Dose Pack 4 mg PO DIRECTED 6 Days Qty: 21 0RF Rx Instructions: Take 1 pack as directed for 6 days hhkxhtxudzkwbvm-rptchbdbr-OC [Bromfed DM] 2-30-10 mg/5 mL Syrup 5 ml PO Q6H PRN (Reason: Cough) Qty: 240 0RF ondansetron 4 mg Tablet,Disintegrating 4 mg PO Q8H PRN (Reason: Nausea) Qty: 12 0RF cefdinir 300 mg capsule 300 mg PO BID Qty: 20 0RF Referrals Follow up/Referrals: Alisia Martinez APRN [Primary Care Provider] - See instructions Activity Restrictions/Add. Instructions Additional Instructions/Restrictions: Drink plenty of fluids. Take tylenol or ibuprofen for pain or fever. Take the promethazine or zofran for nausea/vomiting. Follow up with your regular doctor. GO TO THE ER FOR ANY WORSENING SYMPTOMS Clinical Impressions Clinical Impression: Acute viral syndrome Stand Alone Forms Stand Alone Forms: Work/School Release Instructions Patient Instructions: DI for Viral Syndrome, Promethazine Discharge ED Provider: Pratik Lerma [facility] General Stated complaint: body aches, h/a, vomiting, diarrhea Mode of Arrival: Ambulatory Source of Information: Patient Limitations: No Limitations Time Seen by Provider: 11/03/23 18:33 Description of Symptoms (Recalled from Triage Doc. by RN): PATIENT C/O HEADACHE, DIARRHEA, VOMITING AND BODY ACHES THAT STARTED YESTERDAY HEENT Symptoms (Recalled from RN notes): Yes Resp Symptoms (Recalled from RN notes): No Skin Symptoms (Recalled from RN notes): No MS Symptoms (Recalled from RN notes): No Functional Status (Recalled from RN notes): WNL History of Present Illness Provider Complaint: She states that she was starting to feel better, but then yesterday she began to have n/v/d. Today she has felt very fatigued also. Related Data Previous Rx's Medication Instructions Recorded wbwarzsvrqiopxn-kvgxuxjkaepkjea-VK 5 ml PO Q6H PRN Cough #240 mL 10/29/23 2 mg-30 mg-10 mg/5 mL oral syrup (Bromfed DM) cefdinir 300 mg capsule 300 mg PO BID #20 caps 10/29/23 methylprednisolone 4 mg tablets in 4 mg PO DIRECTED 6 days #21 tabs 10/29/23 a dose pack ondansetron 4 mg disintegrating 4 mg PO Q8H PRN Nausea #12 tabs 10/29/23 tablet promethazine 25 mg tablet 25 mg PO TID PRN nausea and 11/03/23 vomiting #20 tabs Allergies Allergy/AdvReac Type Severity Reaction Status Date / Time codeine [CODEINE] Allergy Mild ITCHY RASH Verified 10/29/23 10:53 honey [HONEY] Allergy Mild NA-NAUSEA/V Verified 10/29/23 10:53 OMITING Penicillins [PENICILLINS] Allergy Mild Verified 10/29/23 10:53 bee venom protein (honey bee) Allergy Verified 10/29/23 10:53 Worker's Comp Is this a Worker's Comp case?: No [facility] Disclaimer: The information contained in this section may have been updated after the patient was seen, as this information can be updated by other users. 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 High cholesterol Family History Other Asthma Cancer Hyperlipidemia Social History Smoking Status: Never smoker second hand exposure: Yes alcohol intake: never substance use type: denies use current occupational status: other Travel in the last 8 weeks: None household members: significant other and family housing: house ROS Obtained: Yes All systems reviewed & no additional complaints except as documented Constitutional Constitutional: Denies chills, Denies fever(s) and Reports poor appetite ENT Ears, Nose, Mouth, and Throat: Denies dizziness and Denies sore throat Cardiovascular Cardiovascular: Denies dyspnea Respiratory Respiratory: Denies chest congestion, Denies cough and Denies dyspnea Gastrointestinal Gastrointestingal: Reports as per HPI; Denies abdominal pain Genitourinary Female Genitourinary: Denies difficulty voiding, Denies dysuria, Denies hematuria, Denies urinary frequency, Denies urinary incontinence, Denies urinary hesitancy and Denies urinary urgency Musculoskeletal Musculoskeletal: Denies arthralgias Integumentary/Breasts Skin/Breast: Denies rash Neurologic Neurologic: Denies dizziness Physical Exam General General appearance: alert and in no apparent distress Head Head exam: atraumatic and normocephalic Eye Eye exam: Present normal appearance, PERRL and EOMI ENT ENT exam: Present normal exam, normal oropharynx, mucous membranes moist, TM's normal bilaterally and normal external ear exam Neck Neck exam: Present normal inspection, full ROM and trachea midline; Absent tenderness, meningismus or lymphadenopathy Chest Chest inspection: Present normal inspection and symmetric chest wall rise; Absent tenderness, rash or abscess Respiratory Respiratory exam: Present normal lung sounds bilaterally; Absent respiratory distress, wheezes or stridor Cardiovascular Cardiovascular exam: Present regular rate and normal rhythm; Absent irregular rhythm, systolic murmur, diastolic murmur or JVD Abdominal Exam Abdominal exam: Present soft and hyperactive bowel sounds; Absent distention, tenderness, guarding, rebound, rigidity, psoas sign, obturator sign, heel tap sign, Shah's sign, Rovsing's sign or tenderness at McBurney's Point Extremities Exam Extremities exam: Present normal inspection and full ROM; Absent tenderness Back Exam Back exam: Present normal inspection and full ROM; Absent tenderness, CVA tenderness (R) or CVA tenderness (L) Neurological Exam Neurological exam: Present alert, oriented X3 and CN II-XII intact Psychiatric Psychiatric exam: Present normal affect and normal mood Skin Skin exam: Present warm, dry, intact and normal color Lymphatic Lymphatic Findings: no adenopathy Medical Decision Making Medical Records Medical records reviewed: No I reviewed the patient's medical records. Marck Inquiry Pt receiving controlled substance: No Vital Signs: 11/03/23 18:25 Temperature 98.5 F Temperature Source Oral Pulse Rate [Left Brachial] 86 Respiratory Rate 20 Blood Pressure [Left Arm] 95/62 L Blood Pressure Mean [Left Arm] 73 Blood Pressure Source [Left Arm] Automatic Cuff Blood Pressure Position [Left Arm] Sitting 02 Sat by Pulse Oximetry 99 Oxygen Delivery Method Room Air
[2023-11-03 18:49] VITALS: BP 95/62; PULSE 86; RESP 20; TEMP 36.9; O2SAT 99
[2023-11-03 18:49] LABS: UTC Influenza A Antigen Negative (Negative); UTC Influenza B Antigen Negative (Negative); UTC Strep Screen (Rapid) Negative (Negative)
== END 2023-11-03 18:54 | disposition home or self-care (01) ==
PROVIDERS: Emergency Provider Nurse Practitioner Family; PCP Nurse Practitioner Family
DX: R11.2 Nausea with vomiting, unspecified (principal); R51.9 Headache, unspecified; B34.9 Viral infection, unspecified
CPT/HCPCS: 87804; 87880; 99212; 99214; G0463

== ENCOUNTER 2023-12-26 20:10 | Emergency (ER) | payer OTHER, SELFPAY ==
[2023-12-26 20:11] VITALS: BP 122/81; PULSE 91; RESP 18; TEMP 36.7; O2SAT 98; BMI 43.5
--- NOTE | 2023-12-26 20:18 | XR_ITS ---
PROCEDURE INFORMATION: Exam: XR Left Hand Exam date and time: 12/26/2023 8:14 PM Age: 38 years old Clinical indication: Pain; Hand; Left; Additional info: Pain in median nerve distribution volar TECHNIQUE: Imaging protocol: Radiologic exam of the left hand. Views: 3 or more views. COMPARISON: CR XR HAND LT MIN 3V 17/07/2023 19:47 FINDINGS: Bones/joints: No acute fracture or dislocation. Soft tissues: Normal. IMPRESSION: No acute fracture or dislocation.
--- NOTE | 2023-12-26 20:19 | HMH.EDGENADL ---
Discharge Plan Disposition Patient Disposition: Home, Self-Care Prescriptions Prescriptions: No Action promethazine 25 mg tablet 25 mg PO TID PRN (Reason: nausea and vomiting) Qty: 20 0RF methylprednisolone 4 mg Tablets,Dose Pack 4 mg PO DIRECTED 6 Days Qty: 21 0RF Rx Instructions: Take 1 pack as directed for 6 days pdrytahqhpcduea-wuqrubbfk-HF [Bromfed DM] 2-30-10 mg/5 mL Syrup 5 ml PO Q6H PRN (Reason: Cough) Qty: 240 0RF ondansetron 4 mg Tablet,Disintegrating 4 mg PO Q8H PRN (Reason: Nausea) Qty: 12 0RF cefdinir 300 mg capsule 300 mg PO BID Qty: 20 0RF Referrals Follow up/Referrals: Cayden Joshua DO [Staff Physician] - See instructions Alisia Martinez APRN [Primary Care Provider] - See instructions Activity Restrictions/Add. Instructions Additional Instructions/Restrictions: At this time it was felt you are safe to be discharged home. If new or worsening symptoms please do not hesitate to return the emergency department. If symptoms persist please call and schedule appointment with Dr. Joshua as discussed. Clinical Impressions Clinical Impression: Acute wrist pain, Left median nerve neuropathy Discharge ED Provider: Shaun Salmon General Adult HPI General Chief complaint: Extremity Injury, Upper Stated complaint: LT wrist pain Time Seen by Provider: 12/26/23 20:11 History of Present Illness HPI narrative: Patient is a 38-year-old female with no pertinent past medical history presents emergency department for evaluation of left hand pain. Onset was acute, she awoke with it this morning, volar on the radial aspect of her hand. Denies trauma. Has never had anything like this happen before. Due to persistent symptoms she presents here for continued evaluation. No other acute complaints at this time. Related Data Previous Rx's Medication Instructions Recorded ohfwfvioqgmjmyl-vczzllznoeacedl-UL 5 ml PO Q6H PRN Cough #240 mL 10/29/23 2 mg-30 mg-10 mg/5 mL oral syrup (Bromfed DM) cefdinir 300 mg capsule 300 mg PO BID #20 caps 10/29/23 methylprednisolone 4 mg tablets in 4 mg PO DIRECTED 6 days #21 tabs 10/29/23 a dose pack ondansetron 4 mg disintegrating 4 mg PO Q8H PRN Nausea #12 tabs 10/29/23 tablet promethazine 25 mg tablet 25 mg PO TID PRN nausea and 11/03/23 vomiting #20 tabs Allergies Allergy/AdvReac Type Severity Reaction Status Date / Time codeine [CODEINE] Allergy Mild ITCHY RASH Verified 10/29/23 10:53 honey [HONEY] Allergy Mild NA-NAUSEA/V Verified 10/29/23 10:53 OMITING Penicillins [PENICILLINS] Allergy Mild Verified 10/29/23 10:53 bee venom protein (honey bee) Allergy Verified 10/29/23 10:53 PFSH [facility] Disclaimer: The information contained in this section may have been updated after the patient was seen, as this information can be updated by other users. 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 High cholesterol Family History Other Asthma Cancer Hyperlipidemia Social History Smoking Status: Never smoker second hand exposure: Yes alcohol intake: never substance use type: denies use current occupational status: other Travel in the last 8 weeks: None household members: significant other and family housing: house ROS Obtained: Yes Systems reviewed as appropriate & no additional complaints except as documented Physical Exam General General appearance: alert and in no apparent distress Head Head exam: atraumatic and normocephalic Eye Eye exam: Present PERRL ENT ENT exam: Present mucous membranes moist Neck Neck exam: Present normal inspection Chest Chest inspection: Present normal inspection and symmetric chest wall rise Respiratory Respiratory exam: Absent respiratory distress Cardiovascular Cardiovascular exam: Present regular rate and normal rhythm Extremities Exam Extremities exam: Present normal inspection and other (Full range of motion of the left upper extremity at the elbow, wrist, CMC, MCP, PIP, DIP joints. Sensation intact to light touch distally. Palpable left radial pulse. Some tenderness at the volar wrist.) Neurological Exam Neurological exam: Present alert Psychiatric Psychiatric exam: Present normal affect Skin Skin exam: Present warm and dry Medical Decision Making Marck Inquiry Pt receiving controlled substance: No Vital Signs: 12/26/23 20:11 12/26/23 20:40 Temperature 98.1 F 98.1 F Temperature Source Oral Oral Pulse Rate 91 H Pulse Rate [Left Radial] 91 H Respiratory Rate 18 18 Blood Pressure 122/81 Blood Pressure [Right Arm] 122/81 Blood Pressure Mean [Right Arm] 94 Blood Pressure Source [Right Arm] Automatic Cuff Blood Pressure Position Sitting Blood Pressure Position [Right Arm] Sitting 02 Sat by Pulse Oximetry 98 Oxygen Delivery Method Room Air Room Air Orders (Tests/Meds): ED MEDICATIONS Discontinued Medications Generic Name Dose Route Start Last Admin Trade Name Brian PRN Reason Stop Dose Admin Acetaminophen 1,000 mg 12/26/23 20:17 12/26/23 20:28 Acetaminophen 500mg Tab PO 12/26/23 20:18 1,000 mg ONCE ONE Administration Ibuprofen 600 mg 12/26/23 20:17 12/26/23 20:28 Ibuprofen 600 Mg Tablet PO 12/26/23 20:18 600 mg ONCE ONE Administration ORDERS Category Date Time Status Hand XR left minimum 3 views [XR hand LT min 3V] Stat Exams 12/26/23 20:18 Taken Medical Decision Narrative: In summary patient is a 38-year-old female past medical history described above who presents emergency department for evaluation of hand pain. Patient is hemodynamically stable nontoxic-appearing upon arrival, afebrile. Patient has pain along the median nerve distribution of her left hand. May be a variation of carpal tunnel syndrome however I would expect more paresthesias although pain is a possibility. She has full strength, is distally neurovascularly intact, no signs of dactylitis, no overlying erythema or significant joint swelling to suspect infectious arthropathy. Given this limited workup will be conducted with plain film of the left hand initial interventions include Tylenol and ibuprofen. X-ray informally interpreted by me, no acute displaced fracture or dislocation. Patient is appropriate for discharge at this time and will be discharged with volar wrist splint to sleep and will follow-up with Dr. Joshua on an outpatient basis. Critical Care Critical Care Time Critical Care Time: No
[2023-12-26] MEDS: ACETAMINOPHEN 500MG TAB 1000 MG PO (20:28)
[2023-12-26] MEDS: IBUPROFEN 600 MG TABLET PO (20:28)
[2023-12-26 20:40] VITALS: BP 122/81; PULSE 91; RESP 18; TEMP 36.7; O2SAT 98
== END 2023-12-26 20:41 | disposition home or self-care (01) ==
PROVIDERS: Emergency Provider Emergency Medicine; PCP Nurse Practitioner Family
DX: M25.532 Pain in left wrist (principal); G56.12 Other lesions of median nerve, left upper limb
CPT/HCPCS: 73130; 99283

== ENCOUNTER 2023-12-28 14:18 | Outpatient (CLI) | payer OTHER, SELFPAY ==
[2023-12-28 15:31] LABS: HCG,Quantitative < 2 mIU/ml (0-5.42)
== END 2023-12-28 23:59 | disposition home or self-care (01) ==
LOC: LAB 14:19
PROVIDERS: PCP Nurse Practitioner Family; Visit Provider Obstetrics & Gynecology
DX: Z34.90 Encounter for supervision of normal pregnancy, unspecified, unspecified trimester (principal)
CPT/HCPCS: 36415; 84702

== ENCOUNTER 2024-02-24 21:37 | Emergency (ER) | payer OTHER, SELFPAY ==
[2024-02-24 22:19] VITALS: BP 134/73; PULSE 98; O2SAT 98
[2024-02-24 22:23] VITALS: BP 134/73; PULSE 100; RESP 16; TEMP 37.2; O2SAT 98; BMI 41.0
[2024-02-24 22:31] VITALS: BP 115/62; PULSE 95; O2SAT 98
--- NOTE | 2024-02-24 22:40 | HMH.EDGENADL ---
Discharge Plan Disposition Patient Disposition: Home, Self-Care Condition: Good Prescriptions Prescriptions: No Action promethazine 25 mg tablet 25 mg PO TID PRN (Reason: nausea and vomiting) Qty: 20 0RF methylprednisolone 4 mg Tablets,Dose Pack 4 mg PO DIRECTED 6 Days Qty: 21 0RF Rx Instructions: Take 1 pack as directed for 6 days gfixhxxkhfwmyhc-jffqsqsbg-XJ [Bromfed DM] 2-30-10 mg/5 mL Syrup 5 ml PO Q6H PRN (Reason: Cough) Qty: 240 0RF ondansetron 4 mg Tablet,Disintegrating 4 mg PO Q8H PRN (Reason: Nausea) Qty: 12 0RF cefdinir 300 mg capsule 300 mg PO BID Qty: 20 0RF Referrals Follow up/Referrals: Alisia Martinez APRN [Primary Care Provider] - See instructions Activity Restrictions/Add. Instructions Additional Instructions/Restrictions: You were evaluated in the ER and are appropriate for discharge at this time. You are positive for COVID. Wash your hands and cover your cough to avoid spreading infection. Make an appointment with your primary care physician for reevaluation in a few days. Return to the ER with new, worsening, or otherwise concerning symptoms. Clinical Impressions Clinical Impression: COVID Stand Alone Forms Stand Alone Forms: Work/School Release Print Language Print Language: Irish Discharge ED Provider: Anup Ewing General Adult HPI <Anup Ewing MD - Last Filed: 02/24/24 22:46> General Chief complaint: Upper Respiratory Infection Stated complaint: head congestion fever body aches Time Seen by Provider: 02/24/24 22:28 Mode of Arrival: Ambulatory Source of Information: Patient Limitations: No Limitations Description of Symptoms (Recalled from ER Triage Doc. by RN): Pt reports to ED with cc of congestion, sneezing, taste being off, hoarsed voice, excessive thirst, no appetite, bdoy aches. Pt states I've felt crappy and stopped up for two days now . Pt also states feeling like she had a fever at home but denied taking her temperature. Pt took Tylenlol [employer]. History of Present Illness HPI narrative: Please note that above description of symptoms, in this electronic medical record under categorization of recalled from ER triage doctor by RN are reflective of an initial nursing assessment, however, is not reflective of my full history and physical exam that was personally taken and clarified. Consequentially, this preceding description of symptoms, which may include the patient's categorized chief complaint in the EMR, do not reflect my personal clinical impression, and the ultimate description of history of present illness and patient stated complaints should be deferred to this section of the note. Unless stated otherwise or congruent with this section of the note, additional signs, symptoms, or incongruence should be interpreted as inaccurate with my clinical impression. Related Data Previous Rx's ?Medication ?Instructions ?Recorded dbegjqdmywuokzn-walfthkxhgyrobf-BB 5 ml PO Q6H PRN Cough #240 mL 10/29/23 2 mg-30 mg-10 mg/5 mL oral syrup (Bromfed DM) cefdinir 300 mg capsule 300 mg PO BID #20 caps 10/29/23 methylprednisolone 4 mg tablets in 4 mg PO DIRECTED 6 days #21 tabs 10/29/23 a dose pack ondansetron 4 mg disintegrating 4 mg PO Q8H PRN Nausea #12 tabs 10/29/23 tablet promethazine 25 mg tablet 25 mg PO TID PRN nausea and 11/03/23 vomiting #20 tabs Allergies Allergy/AdvReac Type Severity Reaction Status Date / Time codeine [CODEINE] Allergy Mild ITCHY RASH Verified 10/29/23 10:53 honey [HONEY] Allergy Mild NA-NAUSEA/V Verified 10/29/23 10:53 OMITING Penicillins [PENICILLINS] Allergy Mild Verified 10/29/23 10:53 bee venom protein (honey bee) Allergy Verified 10/29/23 10:53 PFSH <Anup Ewing MD - Last Filed: 02/24/24 22:46> [facility] Disclaimer: The information contained in this section may have been updated after the patient was seen, as this information can be updated by other users. 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 (Reviewed
[2024-02-24 23:20] LABS: Influenza A, PCR Not Detected (NotDetected); Influenza B, PCR Not Detected (NotDetected)
[2024-02-24 23:47] LABS: Coronavirus 19, PCR Detected (NotDetected)
[2024-02-24 23:53] VITALS: BP 122/66; PULSE 87; RESP 18; TEMP 36.7; O2SAT 98
== END 2024-02-25 00:03 | disposition home or self-care (01) ==
PROVIDERS: Emergency Provider Emergency Medicine; PCP Nurse Practitioner Family
DX: R09.81 Nasal congestion (principal); U07.1 COVID-19; R53.83 Other fatigue; R05.9 Cough, unspecified
CPT/HCPCS: 87636; 99283; J8540

== ENCOUNTER 2024-03-11 19:38 | Emergency (ER) | payer OTHER, SELFPAY ==
--- NOTE | 2024-03-11 19:40 | HMH.EDGENADL ---
Discharge Plan Disposition Patient Disposition: Home, Self-Care Condition: Good Prescriptions Prescriptions: No Action No Known Home Medications Referrals Follow up/Referrals: Alisia Martinez APRN [Primary Care Provider] - See instructions Activity Restrictions/Add. Instructions Additional Instructions/Restrictions: Please take Tylenol alternating with Motrin every 4 hours for symptoms of sore throat malaise and subjective fever. You may take ylqn-bud-dzzqcqj DayQuil/NyQuil or there like as tolerated for your symptoms. Return to the ER for any worsening signs or symptoms as needed Clinical Impressions Clinical Impression: Upper respiratory infection, viral, Acute dysfunction of left eustachian tube Stand Alone Forms Stand Alone Forms: Work/School Release Instructions Patient Instructions: DI for Eustachian Tube Dysfunction-Adult Print Language Print Language: Icelandic Discharge ED Provider: Anup Ewing General Adult HPI <HESHAM Currie - Last Filed: 03/11/24 20:23> General Chief complaint: Upper Respiratory Infection Stated complaint: sore throat,cough,earache Time Seen by Provider: 03/11/24 19:39 History of Present Illness HPI narrative: Patient presents for evaluation of sore throat congestion and left earache. Patient was diagnosed with COVID 2 weeks ago however she has had persistent upper respiratory tract infections including cough and sore throat and now is complaining of significant left ear pain. She denies any fever chills hemoptysis hematochezia melena nausea vomiting diarrhea. Related Data Home Medications ?Medication ?Instructions ?Recorded ?Confirmed No Known Home Medications 03/11/24 03/11/24 Allergies Allergy/AdvReac Type Severity Reaction Status Date / Time codeine [CODEINE] Allergy Mild ITCHY RASH Verified 10/29/23 10:53 honey [HONEY] Allergy Mild NA-NAUSEA/V Verified 10/29/23 10:53 OMITING Penicillins [PENICILLINS] Allergy Mild Verified 10/29/23 10:53 bee venom protein (honey bee) Allergy Verified 10/29/23 10:53 PFSH <HESHAM Currie - Last Filed: 03/11/24 20:23> [facility] Disclaimer: The information contained in this section may have been updated after the patient was seen, as this information can be updated by other users. 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 High cholesterol Family History Other Asthma Cancer Hyperlipidemia Social History Smoking Status: Unknown if ever smoked second hand exposure: Yes alcohol intake: never substance use type: denies use current occupational status: other Travel in the last 8 weeks: None household members: significant other and family housing: house <HESHAM Currie - Last Filed: 03/11/24 20:23> ROS Obtained: Yes Systems reviewed as appropriate & no additional complaints except as documented Physical Exam <HESHAM Currie - Last Filed: 03/11/24 20:23> General General appearance: alert and in no apparent distress Respiratory Respiratory exam: Present normal lung sounds bilaterally Cardiovascular Cardiovascular exam: Present regular rate Neurological Exam Neurological exam: Present alert and oriented X3 Medical Decision Making <HESHAM Currie - Last Filed: 03/11/24 20:23> Medical Records Medical records reviewed: Yes I reviewed the patient's medical records. Marck Inquiry Pt receiving controlled substance: No Vital Signs: 03/11/24 19:50 03/11/24 20:22 Temperature 97.7 F 98.2 F Temperature Source Oral Oral Pulse Rate 72 Pulse Rate [Left Brachial] 86 Respiratory Rate 19 19 Blood Pressure 128/78 Blood Pressure [Left Arm] 121/89 Blood Pressure Mean [Left Arm] 99 Blood Pressure Source Automatic Cuff Blood Pressure Source [Left Arm] Automatic Cuff Blood Pressure Position Sitting Blood Pressure Position [Left Arm] Sitting 02 Sat by Pulse Oximetry 100 Oxygen Delivery Method Room Air Room Air Medical Decision Narrative: In summary patient is a 38-year-old female who presents to the emergency department for evaluation of respiratory tract infection and left ear pain. Patient is hemodynamically stable upon arrival, afebrile. Physical exam is remarkable for erythema of the posterior pharynx but no evidence of exudate, no cervical lymphadenopathy, nasal mucosa congestion that is red with clear rhinorrhea, and her bilateral tympanic membranes are clear without evidence of erythema effusion or injection.. Differential diagnosis includes new viral URI versus long COVID versus eustachian tube dysfunction etc. Initial workup was considered however via shared decision making respiratory swab for the full respiratory panel is currently a send out thus of limited benefit and patient elected to defer that. After being informed that her symptoms are most consistent with another viral infection or lingering COVID patient is comfortable going home with vvwz-opi-ogakbyc symptomatic treatment. I did offer Bromfed but patient declined. Given this patient is appropriate for discharge with symptomatic treatment. Patient to follow-up with PCP return to ER for any worsening signs or symptoms as needed <Anup Ewing MD - Last Filed: 03/11/24 21:33> Vital Signs: 03/11/24 19:50 03/11/24 20:22 Temperature 97.7 F 98.2 F Temperature Source Oral Oral Pulse Rate 72 Pulse Rate [Left Brachial] 86 Respiratory Rate 19 19 Blood Pressure 128/78 Blood Pressure [Left Arm] 121/89 Blood Pressure Mean [Left Arm] 99 Blood Pressure Source Automatic Cuff Blood Pressure Source [Left Arm] Automatic Cuff Blood Pressure Position Sitting Blood Pressure Position [Left Arm] Sitting 02 Sat by Pulse Oximetry 100 Oxygen Delivery Method Room Air Room Air Medical Decision Narrative: In summary patient is a 38-year-old female who presents to the emergency department for evaluation of respiratory tract infection and left ear pain. Patient is hemodynamically stable upon arrival, afebrile. Physical exam is remarkable for erythema of the posterior pharynx but no evidence of exudate, no cervical lymphadenopathy, nasal mucosa congestion that is red with clear rhinorrhea, and her bilateral tympanic membranes are clear without evidence of erythema effusion or injection.. Differential diagnosis includes new viral URI versus long COVID versus eustachian tube dysfunction etc. Initial workup was considered however via shared decision making respiratory swab for the full respiratory panel is currently a send out thus of limited benefit and patient elected to defer that. After being informed that her symptoms are most consistent with another viral infection or lingering COVID patient is comfortable going home with trqg-swa-cxlofmo symptomatic treatment. I did offer Bromfed but patient declined. Given this patient is appropriate for discharge with symptomatic treatment. Patient to follow-up with PCP return to ER for any worsening signs or symptoms as needed I was consulted by the AUGUST, and we discussed the complexity of the problems being addressed. I approved the treatment and management plan for this patient's care in the Emergency Department, thus performing a substantive portion of the medical decision making. Anup Ewing MD Critical Care <HESHAM Currie - Last Filed: 03/11/24 20:23> Critical Care Time Critical Care Time: No
[2024-03-11 19:50] VITALS: BP 121/89; PULSE 86; RESP 19; TEMP 36.5; O2SAT 100; BMI 41.0
[2024-03-11 20:22] VITALS: BP 128/78; PULSE 72; RESP 19; TEMP 36.8; O2SAT 98
== END 2024-03-11 20:23 | disposition home or self-care (01) ==
PROVIDERS: Emergency Provider Emergency Medicine; PCP Nurse Practitioner Family
DX: H69.92 Unspecified Eustachian tube disorder, left ear (principal); R07.0 Pain in throat; J06.9 Acute upper respiratory infection, unspecified; B34.9 Viral infection, unspecified; Z86.16 Personal history of COVID-19
CPT/HCPCS: 99282

== ENCOUNTER 2024-04-16 13:49 | Outpatient (CLI) | payer OTHER, SELFPAY ==
[2024-04-16 16:56] LABS: Basophils % 0.4 % (0.1-2.0); Eosinophils # 0.3 K/mm3 (0.0-0.4); Eosinophils % 3.2 % (0.1-12.0); Hematocrit 39.9 % (37.0-47.0); Hemoglobin 13.4 g/dL (12.2-16.2); Lymphocytes # 1.7 K/mm3 (0.7-4.5); Lymphocytes % 18.3 % (10-50); Mean Corpuscular HGB Conc 33.6 g/dL (31.8-35.4); Mean Corpuscular Hemoglobin 28.2 pg (27.0-31.2); Mean Corpuscular Volume 83.9 fl (81-99); Mean Platelet Volume 9.5 fl (7.4-10.4); Monocytes # 0.4 K/mm3 (0.1-1.0); Monocytes % 3.9 % (1.7-9.3); Neutrophils # 6.7 K/mm3 (1.8-7.8); Neutrophils % 74.1 % (37.0-80.0); Platelet Count 277 K/mm3 (142-424); Red Blood Count 4.76 M/mm3 (4.20-5.40)
[2024-04-16 18:00] LABS: Albumin Level 4.5 g/dl (3.5-5.0); Chloride 107 mmol/L (98-107)
[2024-04-16 18:01] LABS: Potassium 3.9 mmoL/L (3.5-5.1); Sodium 138 mmol/L (136-145)
[2024-04-16 18:03] LABS: Alanine Aminotransferase 25 U/L (12-78); Albumin/Globulin Ratio 1.7 (1.1-1.8); Anion Gap 13.9 mEq/L (5-15); Aspartate Amino Transferase 31 U/L (14-36); Blood Urea Nitrogen 8 mg/dl (7-17); Carbon Dioxide 21 mmol/L (22.0-30.0); Estimated Glomerular Filt Rate 113 ml/min (>60); GFR (African American) 137 ML/MIN (>60); Globulin 2.6 g/dL (1.3-3.2); Total Protein,Serum 7.1 g/dl (6.3-8.2)
[2024-04-16 18:04] LABS: Alkaline Phosphatase 83 U/L (38-126); Bilirubin,Total 0.5 mg/dl (0.2-1.3); Calcium 9.6 mg/dl (8.4-10.2); Chol/HDL Ratio 5.3 (1-3.5); Cholesterol 234 mg/dl (140-200); Glucose 94 mg/dl (74-100); HDL Cholesterol 44 mg/dl (40-60); Magnesium 1.7 mg/dl (1.6-2.3); Triglycerides 228 mg/dl (30-150); VLDL Cholesterol 46 mg/dL (0-40)
[2024-04-16 18:24] LABS: Direct LDL Cholesterol 132.06 mg/dL (100-129)
[2024-04-16 18:30] LABS: Thyroid Stimulating Hormone 1.18 uIU/mL (0.465-4.68)
[2024-04-16 18:34] LABS: Ferritin 14.3 ng/ml (6.24-137)
[2024-04-16 19:38] LABS: Vitamin B12 374 pg/mL (239-931)
[2024-04-16 19:56] LABS: Hemoglobin A1C 5.1 % (4.0-6.0)
[2024-04-18 11:15] LABS: Estradiol 20.7 pg/mL (.); LH 5.2 mIU/mL (.); Progesterone <0.1 ng/mL (.)
== END 2024-04-16 23:59 | disposition home or self-care (01) ==
LOC: LAB.DROPOF 04-17 10:53
PROVIDERS: PCP Nurse Practitioner Family; Visit Provider Nurse Practitioner Family
DX: R63.5 Abnormal weight gain (principal); Z13.220 Encounter for screening for lipoid disorders; N92.6 Irregular menstruation, unspecified; Z13.1 Encounter for screening for diabetes mellitus; R53.83 Other fatigue
CPT/HCPCS: 80050; 80053; 80061; 82607; 82670; 82728; 83001; 83002; 83036; 83735; 84144; 84443; 85025

== ENCOUNTER 2024-05-28 10:53 | Emergency (ER) | payer OTHER, SELFPAY ==
[2024-05-28 10:55] VITALS: BP 117/49; PULSE 80; RESP 13; TEMP 36.7; O2SAT 99; BMI 45.8
--- NOTE | 2024-05-28 11:26 | HMH.EDGENADL ---
Discharge Plan Prescriptions Prescriptions: New prednisone 20 mg tablet 40 mg PO DAILY 5 Days Qty: 10 0RF No Action cefdinir 300 mg capsule 300 mg PO BID 10 Days Qty: 20 0RF Referrals Follow up/Referrals: Alisia Martinez APRN [Primary Care Provider] - See instructions Activity Restrictions/Add. Instructions Additional Instructions/Restrictions: Call your family doctor to establish care for this visit to the emergency department and schedule follow-up within 48 hours to ensure improvement. If you have any worsening of your condition or any other concerning signs or symptoms, return to the emergency department or your primary care doctor for further evaluation. Clinical Impressions Clinical Impression: Radiculopathy Print Language Print Language: Portuguese Discharge ED Provider: Anup Ewing General Adult HPI General Chief complaint: PAIN Stated complaint: pain left side possible pull muscle Time Seen by Provider: 05/28/24 10:57 Mode of Arrival: Ambulatory Source of Information: Patient Limitations: No Limitations Description of Symptoms (Recalled from ER Triage Doc. by RN): pt presents to ED with c/o left spine/flank pain. pt reports symptoms began this am when she was attempting to put her shirt on. History of Present Illness HPI narrative: Please note that above description of symptoms, in this electronic medical record under categorization of recalled from ER triage doctor by RN are reflective of an initial nursing assessment, however, is not reflective of my full history and physical exam that was personally taken and clarified. Consequentially, this preceding description of symptoms, which may include the patient's categorized chief complaint in the EMR, do not reflect my personal clinical impression, and the ultimate description of history of present illness and patient stated complaints should be deferred to this section of the note. Unless stated otherwise or congruent with this section of the note, additional signs, symptoms, or incongruence should be interpreted as inaccurate with my clinical impression. Related Data Previous Rx's ?Medication ?Instructions ?Recorded cefdinir 300 mg capsule 300 mg PO BID 10 days #20 caps 04/16/24 prednisone 20 mg tablet 40 mg (2 x 20 mg) PO DAILY 5 days 05/28/24 #10 tabs Allergies Allergy/AdvReac Type Severity Reaction Status Date / Time codeine (CODEINE) Allergy Mild ITCHY RASH Verified 04/16/24 13:14 honey (HONEY) Allergy Mild NA-NAUSEA/V Verified 04/16/24 13:14 OMITING Penicillins (PENICILLINS) Allergy Mild Verified 04/16/24 13:14 bee venom protein (honey bee) Allergy Verified 04/16/24 13:14 [facility] Disclaimer: The information contained in this section may have been updated after the patient was seen, as this information can be updated by other users. 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 (Updated 05/28/24 @ 11:30 by Anup Ewing MD) Bipolar 1 disorder Anxiety High cholesterol Surgical History No significant past surgical history Family History Other Asthma Cancer Hyperlipidemia Social History (Updated 04/16/24 @ 13:15 by MAYKEL Bolaños) Smoking Status: Never smoker second hand exposure: Yes alcohol intake: never substance use type: denies use current occupational status: employed and other household members: significant other and family housing: house Other 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 Have you received the Flu Vaccine for this season: No Have you received the Pneumonia Vaccine: No ROS Obtained: Yes All systems reviewed & no additional complaints except as documented Physical Exam General General appearance: alert Head Head exam: atraumatic and normocephalic Eye Eye exam: Present normal appearance, PERRL and EOMI Neck Neck exam: Present normal inspection, full ROM and trachea midline Respiratory Respiratory exam: Absent respiratory distress, wheezes, stridor, accessory muscle use or prolonged expiratory phase Cardiovascular Cardiovascular exam: Present other (Pulses equal symmetric in upper and lower extremities) Abdominal Exam Abdominal exam: Present soft; Absent distention, tenderness or pulsatile mass Extremities Exam Extremities exam: Absent edema Back Exam Back exam: Present paraspinal tenderness; Absent vertebral tenderness Neurological Exam Neurological exam: Present alert, oriented X3 and CN II-XII intact; Absent motor sensory deficit Skin Skin exam: Present warm and dry; Absent diaphoresis or erythema Medical Decision Making Medical Records Medical records reviewed: Yes I reviewed the patient's medical records. Screening: Per USPSTF and CDC recommendations, given the prevalence of disease in our region, it is our hospital?s policy to screen for HIV and viral Hepatitis for all patients aged 18 and over and those with ongoing risk factors. Marck Inquiry Pt receiving controlled substance: No Marck was queried for this patient: No Vital Signs: 05/28/24 10:55 Temperature 98.1 F Temperature Source Oral Pulse Rate [Left Radial] 80 Respiratory Rate 13 Blood Pressure [Right Arm] 117/49 L Blood Pressure Mean [Right Arm] 71 02 Sat by Pulse Oximetry 99 Oxygen Delivery Method Room Air Orders (Tests/Meds): ORDERS Category Date Time Status HIV (1&2) Antibody Rapid Stat Lab 05/28/24 11:04 Ordered Hep C Ab with Reflex to RNA Stat Lab 05/28/24 11:04 Ordered Medical Decision Narrative: 38-year-old female presenting with concern for muscle spasm. She states that she was putting her shirt on earlier today, as she twisted she felt immediate pain go from mid left back around left side. No associated weakness. Made worse with changes in position, largely asymptomatic at rest. No lower extremity symptoms, bowel or bladder dysfunction, etc. Has not noticed anything that makes it better. History obtained with patient. On arrival, very well-appearing. Sitting leaning to the right because this makes it more comfortable. Paraspinal tenderness, no midline spinal tenderness. Differential includes muscle spasm versus radiculitis versus radiculopathy. Patient given initial dose of prednisone, sent home with more prednisone. Further workup deemed inappropriate at this time given no red flag signs or symptoms and asymptomatic at rest. Because patient at baseline without signs or symptoms of clinical decompensation, deemed appropriate for discharge. I discussed my clinical impression with patient and answered all questions. At this time, the evidence for any other entities in the differential is insufficient to warrant any further testing or ED observation. This was explained as well. Advisory was given that persistent or worsening symptoms require further evaluation. I confirmed the understanding of this discussion. Vp Security disclaimer Much of this encounter note is an electronic palm and back forger spoken language to printed text. Electronic palm and back forger of the spoken language may permit errors. Although I have reviewed the note, some errors may still exist. Critical Care Critical Care Time Critical Care Time: No
[2024-05-28] MEDS: predniSONE 20MG TAB 40 MG PO (11:32)
[2024-05-28 11:36] VITALS: BP 97/40; PULSE 71; RESP 20; TEMP 36.8; O2SAT 98
== END 2024-05-28 11:47 | disposition home or self-care (01) ==
PROVIDERS: Emergency Provider Emergency Medicine; PCP Nurse Practitioner Family
DX: M54.10 Radiculopathy, site unspecified (principal); R10.32 Left lower quadrant pain
CPT/HCPCS: 99283

== ENCOUNTER 2024-07-28 09:36 | Outpatient (CLI) | payer OTHER, SELFPAY ==
--- NOTE | 2024-07-28 09:40 | XR_ITS ---
FINAL REPORT CLINICAL HISTORY: Rt Wrist pain COMPARISON: 02/03/2021 FINDINGS: RIGHT WRIST Three views demonstrate no acute fracture or dislocation. The visualized joint spaces are normally aligned. The soft tissues are unremarkable. IMPRESSION: No acute bony abnormality. Reviewed, Interpreted and Dictated by Arian Lugo MD Transcribed by Dennise Travis Authenticated and [facility]
== END 2024-07-28 23:59 | disposition home or self-care (01) ==
LOC: RAD 09:37
PROVIDERS: PCP Nurse Practitioner Family; Visit Provider Orthopaedic Surgery
DX: M25.531 Pain in right wrist (principal)
CPT/HCPCS: 73110

== ENCOUNTER 2024-09-29 19:16 | Outpatient (CLI) | payer OTHER, SELFPAY ==
[2024-09-29 21:23] LABS: Coronavirus 19, PCR Not Detected (NotDetected); Influenza A, PCR Not Detected (NotDetected); Influenza B, PCR Not Detected (NotDetected); Respiratory Syncytial Virus Not Detected (NotDetected)
[2024-09-30 06:37] LABS: Human Rhinovirus Detected (NotDetected)
== END 2024-09-29 23:59 | disposition home or self-care (01) ==
LOC: LAB.DROPOF 09-30 13:37
PROVIDERS: PCP Student in an Organized Health Care Education/Training Program; Visit Provider Student in an Organized Health Care Education/Training Program
DX: R05.9 Cough, unspecified (principal); R09.81 Nasal congestion
CPT/HCPCS: 87631

== ENCOUNTER 2024-10-14 13:52 | Outpatient (CLI) | payer OTHER, SELFPAY ==
--- NOTE | 2024-10-14 13:54 | XR_ITS ---
FINAL REPORT CLINICAL HISTORY: left foot pain FINDINGS: AP, oblique and lateral views of the left foot were obtained. There is no acute fracture or dislocation. There is cortical thickening in the lateral cortex of the distal fourth metatarsal which could be related to old injury. The joint spaces are preserved. Soft tissues are unremarkable. IMPRESSION: No acute osseous abnormality of the left foot. Reviewed, Interpreted and Dictated by Maye Drake MD Transcribed by Aliza Goodwin Authenticated and [facility]
== END 2024-10-14 23:59 | disposition home or self-care (01) ==
LOC: RAD 13:52
PROVIDERS: PCP Nurse Practitioner Family; Visit Provider Podiatrist
DX: M79.672 Pain in left foot (principal)
CPT/HCPCS: 73630

== ENCOUNTER 2024-11-05 08:13 | Emergency (ER) | payer OTHER, SELFPAY ==
[2024-11-05 08:24] VITALS: BP 119/59; PULSE 84; RESP 18; TEMP 36.7; O2SAT 98; BMI 45.8
--- NOTE | 2024-11-05 08:34 | XR_ITS ---
FINAL REPORT CLINICAL HISTORY: puncture wound, eval foreign body COMPARISON: 10/09/2017 FINDINGS: Two views of the right index finger were obtained. There is no acute fracture or dislocation. Joint spaces are preserved. No foreign body is identified. The soft tissues appear normal. IMPRESSION: No acute osseous abnormality of the right index finger. Reviewed, Interpreted and Dictated by Maye Drake MD Transcribed by Pia Chery Authenticated and [facility]
--- NOTE | 2024-11-05 08:36 | PC.NURSE ---
dr nolan at bedside
--- NOTE | 2024-11-05 08:43 | ED_ITS ---
Discharge Plan Disposition Patient Disposition: Home, Self-Care Condition: Good Prescriptions Prescriptions: New sulfamethoxazole-trimethoprim [Bactrim DS] 800-160 mg tablet 1 tab PO BID 10 Days Qty: 20 0RF No Action benzonatate 100 mg capsule 100 mg PO BID PRN (Reason: cough) Qty: 20 0RF Referrals Follow up/Referrals: Alisia Martinez APRN [Primary Care Provider] - See instructions Activity Restrictions/Add. Instructions Additional Instructions/Restrictions: You were evaluated in the emergency department today. Please pick[employer] your prescription for antibiotic at the pharmacy and take the full course as prescribed. Follow-up with your primary care provider for wound recheck. Return to the emergency department for new or worsening symptoms. Clinical Impressions Clinical Impression: Paronychia of right index finger Stand Alone Forms Stand Alone Forms: Work/School Release Instructions Patient Instructions: DI for Paronychia Print Language Print Language: Kyrgyz Discharge ED Provider: Katerina Everett General Adult HPI General Chief complaint: Extremity Injury, Upper Stated complaint: AO 2 weeks-foreign object/infection R index finger Time Seen by Provider: 11/05/24 08:18 Mode of Arrival: Ambulatory Source of Information: Patient Description of Symptoms (Recalled from ER Triage Doc. by RN): pt presents to the ED with a swollen abscess to the right pointer finger. pt reports she was changing the oil in her dads vehicle and got a piece of metal in her finger. pt reports she pulled the piece of metal out right after it happened. pt tried to drain the abscess last night and drained out pus . pts right pointer finger warm to the touch and red. History of Present Illness HPI narrative: This patient is a 39-year-old female presenting to the emergency department for evaluation with concern for infection to her right index finger. Patient states that she was changing the oil in her dad's vehicle and got a piece of metal in her finger several days ago. She notes that she pulled it out right when it happened, but it appeared to get infected. She states that last night, she drained the abscess at home and got some pus out, but her finger is still red, warm, and painful. No other concerns or injuries noted. Related Data Previous Rx's ?Medication ?Instructions ?Recorded benzonatate 100 mg capsule 100 mg PO BID PRN cough #20 caps 09/29/24 sulfamethoxazole 800 1 tab PO BID 10 days #20 tabs 11/05/24 mg-trimethoprim 160 mg tablet (Bactrim DS) Allergies Allergy/AdvReac Type Severity Reaction Status Date / Time codeine (CODEINE) Allergy Mild ITCHY RASH Verified 09/29/24 19:02 honey (HONEY) Allergy Mild NA-NAUSEA/V Verified 09/29/24 19:02 OMITING Penicillins (PENICILLINS) Allergy Mild Verified 09/29/24 19:02 bee venom protein (honey bee) Allergy Verified 09/29/24 19:02 [facility] Disclaimer: The information contained in this section may have been updated after the patient was seen, as this information can be updated by other users. 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 Bipolar 1 disorder Anxiety High cholesterol Surgical History No significant past surgical history Family History Other Asthma Cancer Hyperlipidemia Social History Smoking Status: Current every day smoker tobacco type: cigarettes packs per day: 1 second hand exposure: Yes alcohol intake: never substance use type: denies use current occupational status: employed and other Travel in the last 8 weeks?: None household members: significant other and family housing: house Have you lived/traveled outside [place] in past 30 days?: No Contact w/someone who lives/traveled outside [place] past 30 days?: No Exposure to someone with infectious disease in past 14 days?: No Do you have a fever (greater than 100.4 F or 38 C)?: No Have you tested positive for COVID-19?: No Exposed to someone with COVID-19 in past 14 days?: No Do you have a sore throat?: No Do you have a cough?: No Do you have any weakness?: No Do you have any diarrhea?: No Are you experiencing any unusual bleeding?: No Do you have any muscle aches/pain?: No Do you have any abdominal pain?: No Are you experiencing loss of taste or smell?: No Other 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 Have you received the Flu Vaccine for this season: No Have you received the Pneumonia Vaccine: No ROS Obtained: Yes All systems reviewed & no additional complaints except as documented Physical Exam General General appearance: alert and in no apparent distress Head Head exam: atraumatic and normocephalic Eye Eye exam: Present normal appearance, PERRL and EOMI ENT ENT exam: Present normal exam, normal oropharynx, mucous membranes moist and normal external ear exam Neck Neck exam: Present normal inspection, full ROM and trachea midline; Absent tenderness Chest Chest inspection: Present normal inspection and symmetric chest wall rise; Absent tenderness Respiratory Respiratory exam: Present normal lung sounds bilaterally; Absent respiratory distress, wheezes, stridor or accessory muscle use Cardiovascular Cardiovascular exam: Present regular rate and normal rhythm Abdominal Exam Abdominal exam: Present soft; Absent distention, tenderness or guarding Extremities Exam Extremities exam: Present full ROM, tenderness and normal capillary refill; Absent edema Expanded Upper Extremity Exam Right: Hand L/R back image: 2 1. Localized area of erythema without spread up the finger, no tenderness to palpation of the flexor/extensor tendons. Intact range of motion. No palpable fluctuance or obvious purulence Back Exam Back exam: Present normal inspection and full ROM; Absent tenderness Neurological Exam Neurological exam: Present alert, oriented X3, CN II-XII intact and normal gait; Absent motor sensory deficit Psychiatric Psychiatric exam: Present normal affect and normal mood Skin Skin exam: Present warm and dry Medical Decision Making Medical Records Medical records reviewed: Yes I reviewed the patient's medical records. Screening: Per USPSTF and CDC recommendations, given the prevalence of disease in our region, it is our hospital?s policy to screen for HIV and viral Hepatitis for all patients aged 18 and over and those with ongoing risk factors. Marck Inquiry Pt receiving controlled substance: No Vital Signs: 11/05/24 08:24 11/05/24 09:11 11/05/24 09:13 Temperature 98.1 F 98.1 F 98.4 F Temperature Source Oral Oral Oral Pulse Rate 84 85 Pulse Rate [Right] 84 Respiratory Rate 18 16 19 Blood Pressure 120/66 112/80 Blood Pressure [Right Arm] 119/59 L Blood Pressure Mean [Right Arm] 79 Blood Pressure Source Manual Cuff/ Palpation Automatic Cuff Blood Pressure Source [Right Arm] Automatic Cuff Blood Pressure Position Sitting Sitting Blood Pressure Position [Right Arm] Supine 02 Sat by Pulse Oximetry 98 Oxygen Delivery Method Room Air Room Air Room Air Lab Data Lab results reviewed: Yes I reviewed the patient's lab results. Orders (Tests/Meds): ED MEDICATIONS Discontinued Medications Generic Name Dose Route Start Last Admin Trade Name Brian PRN Reason Stop Dose Admin Trimethoprim/Sulfamethoxazole 1 each 11/05/24 08:39 11/05/24 08:47 Sulfa/Trimethoprim 1 Tablet PO 11/05/24 08:40 1 each ONCE ONE Administration ORDERS Category Date Time Status Finger XR right minimum 2 views [XR finger RT min 2V] Exams 11/05/24 08:34 Completed Stat Medical Decision Narrative: In summary, this patient is a 39-year-old female presenting to the Emergency Department for evaluation of redness, warmth, pain to the right index finger after puncture wound with foreign body that she removed at home. Differential diagnoses considered include but are not limited to paronychia, cellulitis, abscess, flexor tenosynovitis. Ruling out the most morbid conditions drove assessment. On exam, the patient is well-appearing with localized redness and tenderness to the right index finger adjacent to the nailbed consistent with paronychia. No palpable fluctuance, no purulence noted. She already drained out the pus at home. She has no significant digital redness, warmth, swelling consistent with flexor tenosynovitis or other acute surgical pathology. Workup included x-rays of the right index finger to evaluate for foreign body. I independently interpreted x-ray prior to the radiologist read and noted no foreign body or bony abnormality. Please see their read for final interpretation. At this time, I feel patient is appropriate for discharge home with Bactrim to treat paronychia. I considered incision and drainage, however she does not have any area of fluctuance that I feel would be amenable to drainage at this time. She was discharged with strict return precautions and instructions for close follow-up for wound recheck Critical Care Critical Care Time Critical Care Time: No
--- NOTE | 2024-11-05 08:43 | PC.NURSE ---
pt to xr
--- NOTE | 2024-11-05 08:46 | PC.NURSE ---
pt returned from xr
[2024-11-05] MEDS: SULFA/TRIMETHOPRIM 1 TABLET 1 EACH PO (08:47)
[2024-11-05 09:11] VITALS: BP 120/66; PULSE 84; RESP 16; TEMP 36.7; O2SAT 99
[2024-11-05 09:13] VITALS: BP 112/80; PULSE 85; RESP 19; TEMP 36.9; O2SAT 96
== END 2024-11-05 09:14 | disposition home or self-care (01) ==
PROVIDERS: Emergency Provider Emergency Medicine; PCP Nurse Practitioner Family
DX: L03.011 Cellulitis of right finger (principal)
CPT/HCPCS: 73140; 99283

== ENCOUNTER 2024-12-15 17:05 | Emergency (ER) | payer OTHER, SELFPAY ==
[2024-12-15 17:19] VITALS: BP 130/82; PULSE 97; RESP 18; TEMP 36.9; O2SAT 99; BMI 45.3
[2024-12-15 17:30] VITALS: BP 125/73; PULSE 90; O2SAT 98
--- NOTE | 2024-12-15 17:30 | XR_ITS ---
PROCEDURE INFORMATION: Exam: XR Left Foot Exam date and time: 12/15/2024 5:37 PM Age: 39 years old Clinical indication: Other: Heel pain and arch pain after minor trauma TECHNIQUE: Imaging protocol: Radiologic exam of the left foot. Views: 3 or more views. COMPARISON: CR XR FOOT WT BEARING LT 3V 10/14/2024 2:08 PM FINDINGS: Bones/joints: No fracture. Normal alignment. Small inferior calcaneal spur. Soft tissues: Unremarkable. IMPRESSION: No acute findings. Calcaneal spur.
[2024-12-15] MEDS: DEXAMETHASONE 4MG TABLET 10 MG PO (17:37)
--- NOTE | 2024-12-15 17:40 | ED_ITS ---
Discharge Plan Disposition Patient Disposition: Home, Self-Care Prescriptions Prescriptions: New prednisone 20 mg tablet 40 mg PO DAILY 5 Days Qty: 10 0RF No Action benzonatate 100 mg capsule 100 mg PO BID PRN (Reason: cough) Qty: 20 0RF sulfamethoxazole-trimethoprim [Bactrim DS] 800-160 mg tablet 1 tab PO BID 10 Days Qty: 20 0RF Referrals Follow up/Referrals: Alisia Martinez APRN [Primary Care Provider, Medical] - See instructions Activity Restrictions/Add. Instructions Additional Instructions/Restrictions: Call your family doctor to establish care for this visit to the emergency department and schedule follow-up within as needed to ensure improvement. Make sure you follow-up with podiatry. Steroid each day for the next 5 days in the morning after waking up with plenty of food and water. Clinical Impressions Clinical Impression: Plantar fasciitis of left foot Print Language Print Language: Vietnamese Discharge ED Provider: Anup Ewing General Adult HPI General Chief complaint: Extremity Problem,Nontraumatic Stated complaint: left foot pain Time Seen by Provider: 12/15/24 17:14 Mode of Arrival: Ambulatory Source of Information: Patient Description of Symptoms (Recalled from ER Triage Doc. by RN): FELL 2 YEARS AGO WITH TRAUMA TO L FOOT. STATED IT MAY SET UP ARTHRITIS IN THE FUTURE. NOW ON FEET A LOT, AND DOG JUMPED ON IT. PAIN IS SEVERE, STATES FEELS LIKE HIT WITH HAMMER . HAVING A HARD TIME WALKING WITH OUT PAIN History of Present Illness HPI narrative: Please note that above description of symptoms, in this electronic medical record under categorization of recalled from ER triage doctor by RN are reflective of an initial nursing assessment, however, is not reflective of my full history and physical exam that was personally taken and clarified. Consequentially, this preceding description of symptoms, which may include the patient's categorized chief complaint in the EMR, do not reflect my personal clinical impression, and the ultimate description of history of present illness and patient stated complaints should be deferred to this section of the note. Unless stated otherwise or congruent with this section of the note, additional signs, symptoms, or incongruence should be interpreted as inaccurate with my clinical impression. Related Data Previous Rx's ?Medication ?Instructions ?Recorded benzonatate 100 mg capsule 100 mg PO BID PRN cough #20 caps 09/29/24 sulfamethoxazole 800 1 tab PO BID 10 days #20 tab s 05/07/25 mg-trimethoprim 160 mg tablet (Bactrim DS) prednisone 20 mg tablet 40 mg (2 x 20 mg) PO DAILY 5 days 12/15/24 #10 tabs Allergies Allergy/AdvReac Type Severity Reaction Status Date / Time codeine (CODEINE) Allergy Mild ITCHY RASH Verified 09/29/24 19:02 honey (HONEY) Allergy Mild NA-NAUSEA/V Verified 09/29/24 19:02 OMITING Penicillins (PENICILLINS) Allergy Mild Verified 09/29/24 19:02 bee venom protein (honey bee) Allergy Verified 09/29/24 19:02 [facility] Disclaimer: The information contained in this section may have been updated after the patient was seen, as this information can be updated by other users. 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 Bipolar 1 disorder Anxiety High cholesterol Surgical History No significant past surgical history Family History Other Asthma Cancer Hyperlipidemia Social History Smoking Status: Never smoker second hand exposure: Yes alcohol intake: never substance use type: denies use current occupational status: employed and other Travel in the last 8 weeks?: None household members: significant other and family housing: house Have you lived/traveled outside US in past 30 days?: No Contact w/someone who lives/traveled outside US past 30 days?: No Exposure to someone with infectious disease in past 14 days?: No Do you have a fever (greater than 100.4 F or 38 C)?: No Have you tested positive for COVID-19?: No Exposed to someone with COVID-19 in past 14 days?: No Do you have a sore throat?: No Do you have a cough?: No Do you have any weakness?: No Do you have any diarrhea?: No Are you experiencing any unusual bleeding?: No Do you have any muscle aches/pain?: No Do you have any abdominal pain?: No Are you experiencing loss of taste or smell?: No Other 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 Have you received the Flu Vaccine for this season: No Have you received the Pneumonia Vaccine: No ROS Obtained: Yes All systems reviewed & no additional complaints except as documented Physical Exam General General appearance: alert Head Head exam: atraumatic and normocephalic Eye Eye exam: Present normal appearance, PERRL and EOMI Neck Neck exam: Present normal inspection, full ROM and trachea midline Respiratory Respiratory exam: Absent respiratory distress, wheezes, stridor, accessory muscle use or prolonged expiratory phase Cardiovascular Cardiovascular exam: Present other (Pulses equal symmetric in upper and lower extremities) Abdominal Exam Abdominal exam: Present soft; Absent distention, tenderness or pulsatile mass Extremities Exam Extremities exam: Present other (Slight tenderness at the base of the heel and on the plantar fascia. No outward signs of abnormality); Absent edema Neurological Exam Neurological exam: Present alert, oriented X3 and CN II-XII intact; Absent motor sensory deficit Skin Skin exam: Present warm and dry; Absent diaphoresis or erythema Medical Decision Making Medical Records Medical records reviewed: Yes I reviewed the patient's medical records. Screening: Per USPSTF and CDC recommendations, given the prevalence of disease in our [facility], it is our hospital?s policy to screen for HIV and viral Hepatitis for all patients aged 18 and over and those with ongoing risk factors. Marck Inquiry Pt receiving controlled substance: No Marck was queried for this patient: No Vital Signs: 12/15/24 17:19 12/15/24 17:30 Temperature 98.5 F Temperature Source Oral Pulse Rate 90 Pulse Rate [Right Brachial] 97 H Respiratory Rate 18 Blood Pressure 125/73 Blood Pressure [Right Arm] 130/82 Blood Pressure Mean 87 Blood Pressure Mean [Right Arm] 98 Blood Pressure Source [Right Arm] Automatic Cuff Blood Pressure Position [Right Arm] Sitting 02 Sat by Pulse Oximetry 99 98 Oxygen Delivery Method Room Air Orders (Tests/Meds): ED MEDICATIONS Discontinued Medications Generic Name Dose Route Start Last Admin Trade Name Freq PRN Reason Stop Dose Admin Dexamethasone 10 mg 12/15/24 17:30 12/15/24 17:37 Dexamethasone 4mg Tablet PO 12/15/24 17:31 10 mg ONCE ONE Administration ORDERS Category Date Time Status Foot XR left minimum 3 views [XR foot LT min 3V] Stat Exams 12/15/24 17:30 Taken HIV Combo Routine Lab 12/15/24 17:24 Ordered Hepatitis C Ab Qual. W/ RFX Routine Lab 12/15/24 17:24 Ordered Medical Decision Narrative: 39-year-old female presenting with left-sided heel pain. Her dog jumped on her foot, states that dog is about 110 pounds. Has been having pain since that time. It is plantar, plantar fascia, on her heel. Able to bear weight, but states that her pain is getting worse. She is on her feet a lot for work which is not helping. No other trauma sustained. History was obtained via conversation with patient. On arrival, patient hemodynamically stable, alert, oriented x4, appropriate, GCS 15, moving all extremities spontaneously, pupils equal and reactive to light. Full physical exam performed and significant for no outward signs of abnormality. She does have tenderness on the plantar surface of the heel as well as plantar surface of the arch. Range of motion is intact. Differential includes bone spur, plantar fasciitis, sprain, strain, among others. X-rays obtained to rule out occult fracture and on independent interpretation, these were negative. No obvious bone spur abnormality on the lateral as well. Patient given first dose of Decadron here for what is most likely plantar fasciitis flareup. Because patient at baseline without signs or symptoms of clinical decompensation, deemed appropriate for discharge. Results were relayed to patient who voiced understanding and were agreeable to outpatient management and follow up. I discussed my clinical impression with patient and answered all questions. At this time, the evidence for any other entities in the differential is insufficient to warrant any further testing or ED observation. This was explained as well. Advisory was given that persistent or worsening symptoms require further evaluation. I confirmed the understanding of this discussion. Recommended she follow-up with podiatry for this. Hearing Aid Repairer disclaimer Much of this encounter note is an electronic store protection specialist spoken language to printed text. Electronic store protection specialist of the spoken language may permit errors. Although I have reviewed the note, some errors may still exist. Critical Care Critical Care Time Critical Care Time: No
[2024-12-15 18:00] VITALS: BP 125/73; PULSE 87; RESP 16; TEMP 37; O2SAT 98
== END 2024-12-15 18:00 | disposition home or self-care (01) ==
PROVIDERS: Emergency Provider Emergency Medicine; PCP Nurse Practitioner Family
DX: M72.2 Plantar fascial fibromatosis (principal); M79.672 Pain in left foot
CPT/HCPCS: 73630; 99283; J8540

== ENCOUNTER 2025-02-14 18:03 | Outpatient (CLI) | payer OTHER, SELFPAY ==
[2025-02-14 21:20] LABS: Coronavirus 19, PCR Not Detected (NotDetected); Influenza A, PCR Not Detected (NotDetected); Influenza B, PCR Not Detected (NotDetected)
== END 2025-02-14 23:59 | disposition home or self-care (01) ==
LOC: LAB.DROPOF 02-16 11:26
PROVIDERS: PCP Nurse Practitioner Family; Visit Provider Nurse Practitioner Family
DX: J06.9 Acute upper respiratory infection, unspecified (principal)
CPT/HCPCS: 87631

== ENCOUNTER 2025-03-24 16:43 | Emergency (ER) | payer OTHER, SELFPAY ==
[2025-03-24 16:50] VITALS: BP 133/74; PULSE 82; RESP 20; TEMP 36.8; O2SAT 98; BMI 45.8
--- NOTE | 2025-03-24 17:17 | ED_ITS ---
Discharge Plan Disposition Patient Disposition: Home, Self-Care Condition: Good Prescriptions Prescriptions: No Action clindamycin HCl [Cleocin HCl] 300 mg capsule 300 mg PO TID 10 Days Qty: 30 0RF cetirizine [Zyrtec] 10 mg tablet 10 mg PO DAILY Qty: 30 2RF Referrals Follow up/Referrals: Cayden Joshua DO [Staff Physician, Orthopedics] - See instructions Alisia Martinez APRN [Primary Care Provider, Medical] - See instructions Activity Restrictions/Add. Instructions Additional Instructions/Restrictions: Wear the brace as needed for comfort. Take tylenol and ibuprofen as needed. Have sent you with Dr. Joshua's orthopedic follow-up if needed. You will have to call them to schedule an appointment. Try to rest the wrist is much as possible. Wear the brace at work and when using the hand for the next couple weeks. Clinical Impressions Clinical Impression: Acute wrist pain, Acute carpal tunnel syndrome Stand Alone Forms Stand Alone Forms: Work/School Release Print Language Print Language: [place] Island[place] Discharge ED Provider: Cony Pardo General Adult HPI General Chief complaint: Extremity Injury, Upper Stated complaint: Pain in R Wrist, numbness in fingers Time Seen by Provider: 03/24/25 17:17 Mode of Arrival: Ambulatory Source of Information: Patient Description of Symptoms (Recalled from ER Triage Doc. by RN): patient present to ED for right wrist pain. her wrist has been bothering her for 2.5 days when she uses it. she states that there is numbness and tingling in the middle finer, ring finger and pinky finger that also radiates into the ulnar side of her wrist. currently rating it 0/10 but does rate it 5/10 when exerting it. History of Present Illness HPI narrative: Patient is a 39-year-old female with no significant past medical history who presents to the emergency department with right wrist pain. Patient states that she has had a previous fracture in her wrist before and has been in the splint. Patient states that she has been having worsening wrist pain over the last couple days. Patient states that she will have intermittent paresthesias in her pinky finger fourth finger and third finger but does not have any numbness currently. 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 Patient states worsening pain over the last day but has been using Tylenol and Motrin at home. Last took Tylenol at noon. Patient has no other medical problems, did not have any trauma to the hand. Related Data Previous Rx's ?Medication ?Instructions ?Recorded cetirizine 10 mg tablet (Zyrtec) 10 mg PO DAILY #30 ta bs 02/09/25 clindamycin HCl 300 mg capsule 300 mg PO TID 10 days # 30 caps 02/09/25 (Cleocin HCl) Allergies Allergy/AdvReac Type Severity Reaction Status Date / Time codeine (CODEINE) Allergy Mild ITCHY RASH Verified 02/14/25 18:12 honey (HONEY) Allergy Mild NA-NAUSEA/V Verified 02/14/25 18:12 OMITING Penicillins (PENICILLINS) Allergy Mild Verified 02/14/25 18:12 bee venom protein (honey bee) Allergy Verified 02/14/25 18:12 [facility] Disclaimer: The information contained in this section may have been updated after the patient was seen, as this information can be updated by other users. 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 Bipolar 1 disorder Anxiety High cholesterol Surgical History No significant past surgical history Family History Other Asthma Cancer Hyperlipidemia Social History Smoking Status: Never smoker second hand exposure: Yes alcohol intake: never substance use type: denies use current occupational status: employed and other Travel in the last 8 weeks?: None household members: significant other and family housing: house Have you lived/traveled outside US in past 30 days?: No Contact w/someone who lives/traveled outside US past 30 days?: No Exposure to someone with infectious disease in past 14 days?: No Do you have a fever (greater than 100.4 F or 38 C)?: No Have you tested positive for COVID-19?: No Exposed to someone with COVID-19 in past 14 days?: No Do you have a sore throat?: No Do you have a cough?: No Do you have any weakness?: No Do you have any diarrhea?: No Are you experiencing any unusual bleeding?: No Do you have any muscle aches/pain?: No Do you have any abdominal pain?: No Are you experiencing loss of taste or smell?: No Other 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 Have you received the Flu Vaccine for this season: No Have you received the Pneumonia Vaccine: No ROS Obtained: Yes All systems reviewed & no additional complaints except as documented and Yes Systems reviewed as appropriate & no additional complaints except as documented Physical Exam General General appearance: alert and in no apparent distress Head Head exam: atraumatic, normocephalic and normal inspection Eye Eye exam: Present normal appearance, PERRL and EOMI; Absent scleral icterus ENT ENT exam: Present normal exam and normal external ear exam Neck Neck exam: Present normal inspection and full ROM Chest Chest inspection: Present normal inspection and symmetric chest wall rise Respiratory Respiratory exam: Present normal lung sounds bilaterally; Absent respiratory distress or wheezes Cardiovascular Cardiovascular exam: Present regular rate, normal rhythm and normal heart sounds Abdominal Exam Abdominal exam: Present soft and distention; Absent tenderness, guarding or rebound Extremities Exam Extremities exam: Present normal inspection, full ROM and other (R wrist with some tenderness along the ulnar styloid, no obvious deformity) Back Exam Back exam: Present normal inspection and full ROM Neurological Exam Neurological exam: Present alert, oriented X3, motor sensory deficit, reflexes normal and other (NVI in the R hand and all digits, no sensory deficits in comparison to L. Strength intact. ) Psychiatric Psychiatric exam: Present normal affect and normal mood Skin Skin exam: Present warm and dry Medical Decision Making Medical Records Screening: Per USPSTF and CDC recommendations, given the prevalence of disease in our region, it is our hospital?s policy to screen for HIV and viral Hepatitis for all patients aged 18 and over and those with ongoing risk factors. Marck Inquiry Pt receiving controlled substance: No Vital Signs: 03/24/25 16:50 Temperature 98.2 F Temperature Source Temporal Artery Scan Pulse Rate [Right Radial] 82 Respiratory Rate 20 Blood Pressure [Right Arm] 133/74 Blood Pressure Mean [Right Arm] 93 Blood Pressure Source [Right Arm] Automatic Cuff Blood Pressure Position [Right Arm] Sitting 02 Sat by Pulse Oximetry 98 Oxygen Delivery Method Room Air Lab Data Lab results reviewed: Yes I reviewed the patient's lab results. Orders (Tests/Meds): ED MEDICATIONS Discontinued Medications Generic Name Dose Route Start Last Admin Trade Name Freq PRN Reason Stop Dose Admin Acetaminophen 1,000 mg 03/24/25 17:42 03/24/25 18:00 Acetaminophen 500mg Tab PO 03/24/25 17:43 1,000 mg ONCE ONE Administration Ibuprofen 800 mg 03/24/25 17:42 03/24/25 18:00 Ibuprofen 800 Mg Tablet PO 03/24/25 17:43 800 mg ONCE ONE Administration ORDERS Category Date Time Status XR wrist RT min 3V Stat Exams 03/24/25 17:28 Taken Medical Decision Narrative: Patient is an otherwise healthy 39-year-old female who presented to the emergency department with right wrist pain. On arrival, patient was hemodynamically stable with unremarkable vital signs. Differential includes but not limited to: Fracture, dislocation, sprain, strain, carpal tunnel, other nerve impingement, amongst others. On exam, patient had some tenderness along the ulnar styloid but patient was otherwise neurovascularly intact. Patient had appropriate strength and sensation in comparison to the left hand. X-ray was obtained which was reviewed interpreted by myself and showed no acute fracture. Patient's intermittent paresthesias of her 5th, 4th and 3rd finger of the right hand I suspect patient has carpal tunnel. Patient was instructed to take Tylenol and ibuprofen. Patient was sent with orthopedic follow-up and patient was placed into a thumb spica splint. Patient was otherwise discharged home in stable condition, return precautions were discussed. Critical Care Critical Care Time Critical Care Time: No
--- NOTE | 2025-03-24 17:28 | XR_ITS ---
PROCEDURE INFORMATION: Exam: XR Right Wrist Exam date and time: 03/24/2025 5:27 PM Age: 39 years old Clinical indication: Pain; Wrist; Right; Additional info: Tenderness right wrist TECHNIQUE: Imaging protocol: Radiologic exam of the right wrist. Views: 3 or more views. COMPARISON: No relevant prior studies available. FINDINGS: Bones/joints: No acute fracture or dislocation. Soft tissues: Normal. IMPRESSION: No acute fracture or dislocation.
[2025-03-24] MEDS: IBUPROFEN 800 MG TABLET PO (18:00)
[2025-03-24] MEDS: ACETAMINOPHEN 500MG TAB 1000 MG PO (18:00)
[2025-03-24 18:42] VITALS: BP 106/79; PULSE 71; RESP 16; TEMP 36.7; O2SAT 100
== END 2025-03-24 18:42 | disposition home or self-care (01) ==
PROVIDERS: Emergency Provider Student in an Organized Health Care Education/Training Program; PCP Nurse Practitioner Family
DX: G56.01 Carpal tunnel syndrome, right upper limb (principal); M25.531 Pain in right wrist; R20.2 Paresthesia of skin
CPT/HCPCS: 73110; 99282; 99283

== ENCOUNTER 2025-05-02 18:43 | Emergency (ER) | payer OTHER, SELFPAY ==
[2025-05-02 18:53] VITALS: BP 149/85; PULSE 96; RESP 18; TEMP 37.4; O2SAT 99; BMI 42568.7
--- NOTE | 2025-05-02 19:35 | ED_ITS ---
<Statement entered by Shaun Salmon MD - 05/02/25 20:36> Shaun Salmon MD: I was consulted by the AUGUST, and we discussed the complexity of the problems being addressed. I approved the treatment and management plan for this patient's care in the emergency department, thus performing a substantive portion of the medical decision making. After discussion with AUGUST there is no concern for facial cellulitis or deep space infection therefore workup with imaging was considered but was deferred. Patient is appropriate for outpatient management at this time. Discharge Plan Disposition Patient Disposition: Home, Self-Care Condition: Good Prescriptions Prescriptions: New clindamycin HCl [Cleocin HCl] 150 mg capsule 450 mg PO Q8H 7 Days Qty: 63 0RF No Action clindamycin HCl [Cleocin HCl] 300 mg capsule 300 mg PO TID 10 Days Qty: 30 0RF cetirizine [Zyrtec] 10 mg tablet 10 mg PO DAILY Qty: 30 2RF Referrals Follow up/Referrals: Alisia Martinez APRN [Primary Care Provider, Medical] - See instructions Activity Restrictions/Add. Instructions Additional Instructions/Restrictions: Please follow-up with your dentist in the upcoming days/weeks, please take your medication 3 times daily with food for 7 days or until dental follow-up, please utilize ibuprofen Tylenol as needed for symptomatic relief. Please return to the emergency with any worsening signs or symptoms. Clinical Impressions Clinical Impression: Pain due to dental caries Instructions Patient Instructions: DI for Dental Pain, DI for Tooth Decay Print Language Print Language: German Discharge ED Provider: Shaun Salmon General Adult HPI General Chief complaint: Dental/Oral Stated complaint: left side of mouth pain Time Seen by Provider: 05/02/25 19:08 Mode of Arrival: Ambulatory Source of Information: Patient Description of Symptoms (Recalled from ER Triage Doc. by RN): patient presents for left sided facial swelling that started 3 days ago. patient has has a cracked left lower tooth for about a year that she refuses to see a dentist for, but 3 days ago they noticed increased pain and swelling. patient intolerant of oral intake due to the pain. History of Present Illness HPI narrative: 39-year-old female presents the emergency department for left-sided tooth pain/facial pain that started around 3 days ago, patient has poor dentition at baseline, has had previous dental procedures/surgeries, has a cracked , left lower tooth, with majority of her pain is, this been going on for about a year, she is attempting to get in with a dentist but she is having some difficulty due to insurance , patient has any fever chills chest pain shortness of breath nausea vomiting constipation diarrhea, patient is current everyday smoker, denies any alcohol or drug use, other past medical history is consistent with dental caries, otherwise no real relevant past medical history, patient states that she has been utilizing Tylenol and ibuprofen with little no relief, as well as some leftover clindamycin , she is only taken for 1 day. Initial triage vitals are unremarkable. Please note that above description of symptoms, in this electronic medical record under categorization of recalled from ER triage doctor by RN are reflective of an initial nursing assessment, however, is not reflective of my full history and physical exam that was personally taken and clarified. Consequentially, this preceding description of symptoms, which may include the patient's categorized chief complaint in the EMR, do not reflect my personal clinical impression, and the ultimate description of history of present illness and patient stated complaints should be deferred to this section of the note. Unless stated otherwise or congruent with this section of the note, additional signs, symptoms, or incongruence should be interpreted as inaccurate with my clinical impression. Onset (ago): day(s) Related Data Previous Rx's ?Medication ?Instructions ?Recorded cetirizine 10 mg tablet (Zyrtec) 10 mg PO DAILY #30 ta bs 02/09/25 clindamycin HCl 300 mg capsule 300 mg PO TID 10 days # 30 caps 02/09/25 (Cleocin HCl) clindamycin HCl 150 mg capsule 450 mg (3 x 150 mg) PO Q8H 7 days 05/02/25 (Cleocin HCl) #63 caps Allergies Allergy/AdvReac Type Severity Reaction Status Date / Time codeine (CODEINE) Allergy Mild ITCHY RASH Verified 02/14/25 18:12 honey (HONEY) Allergy Mild NA-NAUSEA/V Verified 02/14/25 18:12 OMITING Penicillins (PENICILLINS) Allergy Mild Verified 02/14/25 18:12 bee venom protein (honey bee) Allergy Verified 02/14/25 18:12 [facility] Disclaimer: The information contained in this section may have been updated after the patient was seen, as this information can be updated by other users. 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 Bipolar 1 disorder Anxiety High cholesterol Surgical History No significant past surgical history Family History Other Asthma Cancer Hyperlipidemia Social History Smoking Status: Never smoker second hand exposure: Yes alcohol intake: never substance use type: denies use current occupational status: employed and other Travel in the last 8 weeks?: None household members: significant other and family housing: house Have you lived/traveled outside [place] in past 30 days?: No Contact w/someone who lives/traveled outside [place] past 30 days?: No Exposure to someone with infectious disease in past 14 days?: No Do you have a fever (greater than 100.4 F or 38 C)?: No Have you tested positive for COVID-19?: No Exposed to someone with COVID-19 in past 14 days?: No Do you have a sore throat?: No Do you have a cough?: No Do you have any weakness?: No Do you have any diarrhea?: No Are you experiencing any unusual bleeding?: No Do you have any muscle aches/pain?: No Do you have any abdominal pain?: No Are you experiencing loss of taste or smell?: No Other 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 Have you received the Flu Vaccine for this season: No Have you received the Pneumonia Vaccine: No ROS Obtained: Yes All systems reviewed & no additional complaints except as documented Physical Exam General General appearance: alert and in no apparent distress Head Head exam: atraumatic and normocephalic Eye Eye exam: Present PERRL and EOMI ENT ENT exam: Present normal oropharynx, mucous membranes moist and other (Numerous dental caries upon the upper row and lower row, most notable to the left lower canine/incisor, otherwise uvula midline, no erythema, no tonsillar exudates, no obvious peritonsillar periapical abscess to be amicable to drainage at this time) Neck Neck exam: Present normal inspection Chest Chest inspection: Present normal inspection and symmetric chest wall rise Respiratory Respiratory exam: Present normal lung sounds bilaterally; Absent respiratory distress Cardiovascular Cardiovascular exam: Present regular rate and normal rhythm Abdominal Exam Abdominal exam: Present soft; Absent tenderness Extremities Exam Extremities exam: Present normal inspection Neurological Exam Neurological exam: Present alert and oriented X3 Psychiatric Psychiatric exam: Present normal affect Skin Skin exam: Present warm and dry Medical Decision Making Medical Records Medical records reviewed: Yes I reviewed the patient's medical records. Screening: Per USPSTF and CDC recommendations, given the prevalence of disease in our region, it is our hospital?s policy to screen for HIV and viral Hepatitis for all patients aged 18 and over and those with ongoing risk factors. Marck Inquiry Pt receiving controlled substance: Yes Marck was queried for this patient: No Reason not queried -: Emergent pt cond-no time Risks and benefits of using a controlled substance: were discussed with pt by me Vital Signs: 05/02/25 18:53 Temperature 99.3 F Temperature Source Oral Pulse Rate [Right Radial] 96 H Respiratory Rate 18 Blood Pressure [Right Arm] 149/85 H Blood Pressure Mean [Right Arm] 106 Blood Pressure Source [Right Arm] Automatic Cuff Blood Pressure Position [Right Arm] Sitting 02 Sat by Pulse Oximetry 99 Oxygen Delivery Method Room Air Orders (Tests/Meds): ED MEDICATIONS Discontinued Medications Generic Name Dose Route Start Last Admin Trade Name Freq PRN Reason Stop Dose Admin Lidocaine HCl 15 ml 05/02/25 19:43 05/02/25 19:51 Lidocaine 2% Viscous Carolynn 15ml Udc PO 05/02/25 19:44 15 ml ONCE ONE Administration Oxycodone/Acetaminophen 1 each 05/02/25 19:43 05/02/25 19:51 Oxycodone 5mg W/Apap 325mg Tablet PO 05/02/25 19:44 1 each ONCE ONE Administration Medical Decision Narrative: 39-year-old female presents emergency room with left-sided dental pain tooth pain, differential diagnose include but not limited to peritonsillar abscess, periapical abscess, dental caries, poor dentition among others. I discussed this patient's case with the attending physician Dr. Salmon Will give the patient dental balls here in the emergency department for symptomatic relief as well as 5 mg p.o. Percocet, and will also start the patient on 450 mg p.o. clindamycin every 8 for 7 days until dental follow-up, patient will need dentist follow-up within the upcoming days/weeks. Patient was given strict ED return precautions. Patient voiced understanding and agreement with current treatment plan/discharge plan. No signs of facial cellulitis or any other red flag signs or symptoms. Critical Care Critical Care Time Critical Care Time: No
[2025-05-02] MEDS: OXYCODONE 5MG W/APAP 325MG TABLET 1 EACH PO (19:51)
[2025-05-02] MEDS: LIDOCAINE 2% VISCOUS SOL 15ML UDC 15 ML PO (19:51)
[2025-05-02] MEDS: CLINDAMYCIN 150MG CAPSULE 450 MG PO (20:11)
[2025-05-02 20:17] VITALS: BP 164/97; PULSE 70; RESP 16; TEMP 36.7; O2SAT 100
== END 2025-05-02 20:21 | disposition home or self-care (01) ==
PROVIDERS: Emergency Provider Emergency Medicine; PCP Nurse Practitioner Family
DX: K08.89 Other specified disorders of teeth and supporting structures (principal)
CPT/HCPCS: 99283